=== PATIENT | male | born 1975 | race Caucasian/White ===

== ENCOUNTER 2020-02-29 09:23 | Emergency (ER) | payer OTHER, SELFPAY ==
[2020-02-29 09:33] VITALS: BP 131/63; PULSE 106; RESP 16; TEMP 36.6; O2SAT 98; BMI 33.6
[2020-02-29 10:03] LABS: Strep Scrn Group A (Rapid) Negative (Negative)
--- NOTE | 2020-02-29 10:55 | HMH.EDGENADL ---
ED Disposition Clinical Impression: Fever of unknown origin, Viral infection Disposition: Home, Self-Care Condition on Discharge: Good Instructions: DI for Fever (Symptom) -- Child Older Than Three Years Additional Instructions: Please stay self isolated until your cover test comes back tomorrow or Wednesday. 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 Prescriptions: Cholecalciferol (Vitamin D3) [Dialyvite Vitamin D3 Max] 50,000 unit PO WEEKLY 30 Days #4 tab Prescription Printed methylPREDNISolone [Medrol 4mg tab] 4 mg PO DIRECTED #21 tab Prescription Printed Referrals: Gigi Bradshaw MD [Primary Care Provider] - - Critical Care Critical Care Time: No Attestation: On 02/29/20, the high probability of a clinically significant, sudden or life threatening deterioration of the following system(s) required my full and direct attention, intervention and personal management. The time I documented below is in addition to time spent performing reported procedures but includes the following listed in this critical care notation. Medical Decision Making - Medical Records Medical records reviewed: Yes: I reviewed the patient's medical records. - Ronny Inquiry Pt receiving controlled substance: No Vital Signs: 02/29/20 09:33 Temperature 98 F Temperature Source Oral Pulse Rate [Left Radial] 106 H Respiratory Rate 16 Blood Pressure [Right Arm] 131/63 Blood Pressure Mean [Right Arm] 85 Blood Pressure Position [Right Arm] Sitting 02 Sat by Pulse Oximetry 98 Oxygen Delivery Method Room Air - Lab Data Lab results reviewed: Yes: I reviewed the patient's lab results. Lab Results 02/29/20 09:40: Influenza Type A Ag Negative, Influenza Type B Ag Negative 02/29/20 09:40: Group A Strep Rapid Negative Orders (Tests/Meds): ORDERS Category Date Time Status Covid-19 Nasal PCR Sendout [facility] Stat Lab 02/29/20 10:00 Received Strep Screen Confirmation Stat Micro 02/29/20 09:40 Received General Adult HPI - General Chief complaint: Fever Stated complaint: hurting all over Time Seen by Provider: 02/29/20 10:55 Mode of Arrival: Ambulatory Source of Information: Patient Limitations: No Limitations Description of Symptoms (Recalled from ER Triage Doc. by RN): to ed per pvt car with c/o generalized weakness, sorethroat, fever, cough starting yesterday. pt denies any sick contacts. cpta tylenol - History of Present Illness HPI narrative: 45-year-old gentleman presents the ED with generalized body aches arthralgias and myalgias, sore throat and headache and subjective fever shakes and chills. He states his symptoms started yesterday and is progressively gotten worse until he presented here to the emergency department today. Otherwise patient denies any nausea vomiting or diarrhea. Patient denies any cough or shortness of breath. Patient also denies any loss of taste or smell. - Related Data Previous Rx's Medication Instructions Recorded Cholecalciferol (Vitamin D3) 50,000 unit PO WEEKLY 30 Days #4 02/29/20 [Dialyvite Vitamin D3 Max] tab methylPREDNISolone [Medrol 4mg 4 mg PO DIRECTED #21 tab 02/29/20 tab] Allergies Allergy/AdvReac Type Severity Reaction Status Date / Time NO KNOWN ALLERGIES Allergy Uncoded 06/08/17 14:29 [facility] History - Hepatitis A Screen Drug use history?: No High risk sexual behaviors?: No History of sexually transmitted infection?: No Currently employed?: No Childcare worker?: No Do you have indoor plumbing?: Yes Do you have electricity?: Yes Attestation statement:: This patient has been screened for Hepatitis A risk factors. I have reviewed the patient's past medical history: Yes Medical History: Denies:: Diabetes Mellitus Type 1 - Social History Alcohol Intake: never Occupational Status: other Housing: other Household Members: other ROS Obtained: Yes All systems reviewed & no additional complaints - Constitutional C
[2020-02-29 10:58] VITALS: BP 125/86; PULSE 86; TEMP 37.7; O2SAT 96
[2020-02-29 11:06] VITALS: BP 123/83; PULSE 87; RESP 20; TEMP 37.7; O2SAT 98
[2020-03-01 13:05] LABS: Covid-19 Nasal PCR Sendout Lex Positive
--- NOTE | 2020-03-01 13:54 | PC.NURSE ---
attempted to call pt regarding +covid test. not a working number
--- NOTE | 2020-03-01 14:52 | PC.NURSE ---
's office called and informed of +covid
== END 2020-02-29 11:07 | disposition home or self-care (01) ==
PROVIDERS: Emergency Provider Family Medicine; PCP Family Medicine
DX: Z03.818 Encounter for observation for suspected exposure to other biological agents ruled out (principal); B34.9 Viral infection, unspecified
CPT/HCPCS: 87275; 87276; 87430; 99283; U0004

== ENCOUNTER → 2021-06-24 14:45 | Outpatient (CLI) | payer OTHER, SELFPAY | PROVIDERS: PCP Psychiatry & Neurology Sleep Medicine; Visit Provider Nurse Practitioner | DX: Z20.822 Contact with and (suspected) exposure to COVID-19 (principal) | CPT/HCPCS: C9803; U0003; U0005 ==

== ENCOUNTER 2021-12-28 16:15 | Emergency (ER) | payer OTHER, SELFPAY ==
--- NOTE | 2021-12-28 16:21 | XR_ITS ---
PROCEDURE INFORMATION: Exam: XR Right Foot Exam date and time: 12/28/21 04:15 PM Age: 46 years old Clinical indication: Injury or trauma; Other: Dropped a large, heavy toy on right 3rd/4th toes. Blunt trauma; Right lesser toe(s); Additional info: Dropped an object on foot TECHNIQUE: Imaging protocol: Radiologic exam of the Right foot. Views: 3 or more views. COMPARISON: No relevant prior studies available. FINDINGS: Bones/joints: Normal. Soft tissues: Normal. IMPRESSION: No acute findings.
[2021-12-28 16:45] VITALS: BP 147/87; PULSE 70; RESP 18; TEMP 36.7; O2SAT 98; BMI 31.6
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
[2021-12-28 17:14] VITALS: BP 147/87; PULSE 70; RESP 18; TEMP 36.7; O2SAT 98
== END 2021-12-28 17:17 | disposition home or self-care (01) ==
PROVIDERS: Emergency Provider Nurse Practitioner Family; PCP Family Medicine
DX: S90.121A Contusion of right lesser toe(s) without damage to nail, initial encounter (principal); W20.8XXA Other cause of strike by thrown, projected or falling object, initial encounter
CPT/HCPCS: 73630; 99212; G0463

== ENCOUNTER 2024-09-22 13:47 | Observation (INO) | payer OTHER, SELFPAY ==
[2024-09-22] VITALS (8 sets, daily range): BP systolic 130–181; BP diastolic 69–144; PULSE 83–111; RESP 18; TEMP 36.6–36.9; O2SAT 97–98; BMI 34.5; BMI 31.4
--- NOTE | 2024-09-22 13:53 | ED_ITS ---
Discharge Plan Disposition Patient Disposition: Admitted Condition: Good Clinical Impressions Clinical Impression: Multiple pulmonary emboli Discharge ED Provider: Barbara Padilla HPI <JON Mccarty - Last Filed: 09/22/24 16:48> General Chief Complaint: Chest Pain Stated Complaint: CP Time Seen by Provider: 09/22/24 13:53 History of Present Illness HPI narrative: Patient presents for evaluation of right-sided chest pain. Patient states that he began having sharp right sided chest pain intermittently since last night. Patient states it does not radiate and is worse with deep breath or coughs. He denies any shortness of breath fever chills hemoptysis hematochezia melena nausea vomiting diarrhea. He has no previous cardiopulmonary history and is on no home medications. Patient underwent multilevel lumbar back surgery 2 weeks ago in [facility]. He has not been taking any anticoagulants or aspirin. He reports that he is been up and moving and has had a thus far uneventful postoperative course. He denies any lower extremity pain or swelling. Related Data Home Medications ?Medication ?Instructions ?Recorded ?Confirmed oxycodone-acetaminophen 5 mg-325 1 tab PO Q6 PRN Pain, Moderate 09/22/24 09/22/24 mg tablet Allergies Allergy/AdvReac Type Severity Reaction Status Date / Time No Known Allergies Allergy Verified 12/28/21 17:03 PFSH <JON Mccarty - Last Filed: 09/22/24 16:48> [facility] Disclaimer: The information contained in this section may have been updated after the patient was seen, as this information can be updated by other users. Medical History (Updated 09/22/24 @ 17:46 by Xiomara Emery RN) Scoliosis Surgical History (Updated 09/22/24 @ 17:46 by Xiomara Emery RN) History of lumbar surgery History of appendectomy Family History (Updated 09/22/24 @ 17:46 by Xiomara Emery RN) Other No significant family history Social History (Updated 09/22/24 @ 17:46 by Xiomara Emery, RACHAEL) Smoking Status: Never smoker alcohol intake: never current occupational status: other Travel in the last 8 weeks: None household members: other housing: other Have you lived/traveled outside [place] in past 30 days?: No Contact w/someone who lives/traveled outside US past 30 days?: No Exposure to someone with infectious disease in past 14 days?: No Do you have a fever (greater than 100.4 F or 38 C)?: No Have you tested positive for COVID-19: No Exposed to someone with COVID-19 in past 14 days?: No Do you have a sore throat?: No Do you have a cough?: No Do you have any weakness?: No Do you have any diarrhea?: No Are you experiencing any unusual bleeding?: No Do you have any muscle aches/pain?: No Do you have any abdominal pain?: No Are you experiencing loss of taste or smell?: No Other Medical History Have you received the Flu Vaccine for this season: No Have you received the Pneumonia Vaccine: No <JON Mccarty Last Filed: 09/22/24 16:48> ROS Obtained: Yes Systems reviewed as appropriate & no additional complaints except as documented Physical Exam <JON Mccarty Last Filed: 09/22/24 16:48> General General appearance: alert and in no apparent distress Respiratory Respiratory exam: Present normal lung sounds bilaterally Cardiovascular Cardiovascular exam: Present regular rate Neurological Exam Neurological exam: Present alert and oriented X3 HEART Score <JON Mccarty Last Filed: 09/22/24 16:48> HEART Score HEART Score assessment performed?: Yes History (anamnesis): Slightly suspicious ECG: Non-specific disturbance Age: 45-65 years Risk factors: 1-2 risk factors Troponin: </= normal limit HEART Score: 3 <Barbara Padilla DO - Last Filed: 09/22/24 17:56> HEART Score HEART Score: 3 Critical Care <JON Mccarty Last Filed: 09/22/24 16:48> Critical Care Time Critical Care Time: Yes Attestation: On 09/22/24, the high probability of a clinically significant, sudden or life threatening deterioration of the following system(s) required my full and direct attention, intervention and personal management. The time I documented below is in addition to time spent performing reported procedures but includes the following listed in this critical care notation. Total Time Total Critical Care Time: 35 Medical Decision Making <JON Mccarty Last Filed: 09/22/24 16:48> Medical Records Medical records reviewed: Yes I reviewed the patient's medical records. Ronny Inquiry Pt receiving controlled substance: No Vital Signs Vital Signs: 09/22/24 13:48 09/22/24 14:46 09/22/24 15:31 Temperature 98.4 F Temperature Source Oral Pulse Rate 107 H 107 H Pulse Rate [Radial] 111 H Respiratory Rate 18 Blood Pressure 157/69 H 176/125 H Blood Pressure [Right Arm] 152/101 H Blood Pressure Mean [Right Arm] 118 Blood Pressure Source Blood Pressure Source [Right Arm] Automatic Cuff Blood Pressure Position Blood Pressure Position [Right Arm] Sitting 02 Sat by Pulse Oximetry 98 98 97 Oxygen Delivery Method Room Air Room Air Room Air 09/22/24 15:42 09/22/24 17:01 09/22/24 17:03 Temperature 98.4 F Temperature Source Oral Pulse Rate 108 H 100 H 98 H Pulse Rate [Radial] Respiratory Rate 18 Blood Pressure 181/144 H 131/82 131/82 Blood Pressure [Right Arm] Blood Pressure Mean [Right Arm] Blood Pressure Source Automatic Cuff Blood Pressure Source [Right Arm] Blood Pressure Position Sitting Blood Pressure Position [Right Arm] 02 Sat by Pulse Oximetry 97 97 Oxygen Delivery Method Room Air Room Air Room Air Lab Data Lab results reviewed: Yes I reviewed the patient's lab results. Labs: Lab Results 09/22/24 13:57: WBC 9.0, RBC 3.72 L, Hgb 10.2 L, Hct 31.7 L, MCV 85.2, MCH 27.4, MCHC 32.2, RDW 12.9, Plt Count 410, MPV 9.9, Neut % (Auto) 70.6, Lymph % (Auto) 19.8, [place] % (Auto) 8.1, Eos % (Auto) 1.0, Baso % (Auto) 0.3, Neut # (Auto) 6.4, Lymph # (Auto) 1.8, [place] # (Auto) 0.7, Eos # (Auto) 0.1, Baso # (Auto) 0.0, PT 12.4, INR 1.12 H, Sodium 137, Potassium 3.6, Chloride 99, Carbon Dioxide 30, Anion Gap 11.6, BUN 11, Creatinine 1.00, Estimated Creat Clear 146, Estimated GFR 79, Est GFR ( Amer) 96, Glucose 130 H, Calcium 8.9, Total Bilirubin 1.0, AST 24, ALT 29, Alkaline Phosphatase 109, Troponin I < 0.01, NT-Pro-B Natriuret Pep < 20.0, Total Protein 7.3, Albumin 3.7, Globulin 3.6 H, A lbumin/Globulin Ratio 1.0 L, HCV Ab OSKAR w/Rflx PCR Qn Negative, HIV Ag/Ab Combo Qual Negative 09/22/24 14:31: SARS-CoV-2 (PCR) Not detected, Influenza A Untype (PCR) Not detected, Influenza Type B (PCR) Not detected 09/22/24 13:57 09/22/24 13:57 Response Orders (Tests/Meds): ED MEDICATIONS Generic Name Dose Route Start Last Admin Trade Name Freq PRN Reason Stop Dose Admin Acetaminophen 650 mg 09/22/24 17:25 Acetaminophen 325mg Tab PO 10/22/24 16:40 Q6HP PRN Fever or Mild Pain (1-3) Apixaban 5 mg 09/22/24 17:25 09/22/24 17:54 Apixaban 5mg Tablet PO 09/22/24 17:26 5 mg ONCE ONE Administration Enoxaparin Sodium 115 mg 09/22/24 16:40 09/22/24 17:00 Enoxaparin 100mg/Ml Syringe 1 mg/kg (115 mg) 09/22/24 16:41 115 mg SUBCUT Administration ONCE ONE Discontinued Medications Generic Name Dose Route Start Last Admin Trade Name Freq PRN Reason Stop Dose Admin Acetaminophen 1,000 mg 09/22/24 14:06 09/22/24 14:27 Acetaminophen 500mg Tab PO 09/22/24 14:07 1,000 mg ONCE ONE Administration Acetaminophen 650 mg 09/22/24 16:41 Acetaminophen 325mg Tab PO 10/22/24 16:40 Q6HP PRN Fever or Mild Pain (1-3) Apixaban 5 mg 09/22/24 16:40 Apixaban 5mg Tablet PO 09/22/24 16:41 ONCE ONE Iopamidol 70 ml 09/22/24 14:51 09/22/24 14:53 Iopamidol-370 (76%);100ml Bottle IV 09/22/24 14:52 70 ml ONCE ONE Administration Sodium Chloride 10 ml 09/22/24 14:51 09/22/24 14:53 Sodium Chloride 0.9% 10ml Syr (Rad Only) IV 09/22/24 14:52 10 ml ONCE ONE Administration Sodium Chloride 50 ml 09/22/24 14:51 09/22/24 14:52 0.9 % Sodium Chloride 50 Ml Vial IV 09/22/24 14:52 50 ml ONCE ONE Administration ORDERS Category Date Time Status CT angio chest PE protocol Stat Cat Scan 09/22/24 14:06 Completed BNP [NT Pro Brain Natriuretic Pep.] Stat Lab 09/22/24 13:57 Completed CBC w/Auto Diff [Complete Blood Count Auto Diff] Stat Lab 09/22/24 13:57 Completed CMP [Comprehensive Metabolic Panel] Stat Lab 09/22/24 13:57 Completed HIV Combo Stat Lab 09/22/24 13:57 Completed Hepatitis C Ab Qual. W/ RFX Stat Lab 09/22/24 13:57 Completed INR [Prothrombin Time INR] Stat Lab 09/22/24 13:57 Completed Rapid PCR Covid and Flu A/B Stat Lab 09/22/24 14:31 Completed Trop I [Troponin I] Stat Lab 09/22/24 13:57 Completed Troponin I Q3H Lab 09/22/24 17:32 Received Troponin I Q3H Lab 09/22/24 20:15 Ordered MDM Narrative Medical Decision Narrative: In summary patient is a 49-year-old male who presents to the emergency department for evaluation of right-sided chest pain. Patient is [hemodynamically stable/unstable] upon arrival, [febrile/afebrile]. Physical exam is remarkable for nonreducible chest pain on palpation, clear breath sounds with no increased work of breathing or adventitious sounds, no abdominal tenderness no rebound no guarding no rigidity normal bowel sounds, bilateral lower extremity exam shows that he has calves are soft nontender with no dependent edema noted.. Differential diagnosis includes ACS versus PE versus postoperative pneumonia versus chest wall pain versus pleurisy etc. Initial workup will be conducted with hematologic labs CT scan PE protocol. Initial interventions include Tylenol for now. Initial workup reviewed by me and his hematologic labs are significant for a normal white count with no neutrophilic shift and INR of 1.12 and negative troponin and BNP and negative fluid studies. My informal trepidation of his CT scan PE protocol reveals some consolidation and haziness bilaterally along with multiple subsegmental pulmonary emboli with no evidence of right heart strain on imaging prior to radiology read. Please see their final read for formal interpretation. Upon repeat evaluation patient remains without oxygen but is still hypertensive but heart rate is now 70. Given this had interactive discussion with Dr. Adams who is on-call for Dr. Bradshaw about patient MARCANO presentation inpatient management and he will be admitted for further evaluation and care with 1 mg/kg dose of Lovenox now along with one 5 mg Eliquis now with Dr. Bradshaw to decide ongoing management tomorrow. <Barbara Padilla, DO - Last Filed: 09/22/24 17:56> Vital Signs Vital Signs: 09/22/24 13:48 09/22/24 14:46 09/22/24 15:31 Temperature 98.4 F Temperature Source Oral Pulse Rate 107 H 107 H Pulse Rate [Radial] 111 H Respiratory Rate 18 Blood Pressure 157/69 H 176/125 H Blood Pressure [Right Arm] 152/101 H Blood Pressure Mean [Right Arm] 118 Blood Pressure Source Blood Pressure Source [Right Arm] Automatic Cuff Blood Pressure Position Blood Pressure Position [Right Arm] Sitting 02 Sat by Pulse Oximetry 98 98 97 Oxygen Delivery Method Room Air Room Air Room Air 09/22/24 15:42 09/22/24 17:01 09/22/24 17:03 Temperature 98.4 F Temperature Source Oral Pulse Rate 108 H 100 H 98 H Pulse Rate [Radial] Respiratory Rate 18 Blood Pressure 181/144 H 131/82 131/82 Blood Pressure [Right Arm] Blood Pressure Mean [Right Arm] Blood Pressure Source Automatic Cuff Blood Pressure Source [Right Arm] Blood Pressure Position Sitting Blood Pressure Position [Right Arm] 02 Sat by Pulse Oximetry 97 97 Oxygen Delivery Method Room Air Room Air Room Air Lab Data Labs: Lab Results 09/22/24 13:57: WBC 9.0, RBC 3.72 L, Hgb 10.2 L, Hct 31.7 L, MCV 85.2, MCH 27.4, MCHC 32.2, RDW 12.9, Plt Count 410, MPV 9.9, Neut % (Auto) 70.6, Lymph % (Auto) 19.8, [place] % (Auto) 8.1, Eos % (Auto) 1.0, Baso % (Auto) 0.3, Neut # (Auto) 6.4, Lymph # (Auto) 1.8, [place] # (Auto) 0.7, Eos # (Auto) 0.1, Baso # (Auto) 0.0, PT 12.4, INR 1.12 H, Sodium 137, Potassium 3.6, Chloride 99, Carbon Dioxide 30, Anion Gap 11.6, BUN 11, Creatinine 1.00, Estimated Creat Clear 146, Estimated GFR 79, Est GFR ( Amer) 96, Glucose 130 H, Calcium 8.9, Total Bilirubin 1.0, AST 24, ALT 29, Alkaline Phosphatase 109, Troponin I < 0.01, NT-Pro-B Natriuret Pep < 20.0, Total Protein 7.3, Albumin 3.7, Globulin 3.6 H, A lbumin/Globulin Ratio 1.0 L, HCV Ab OSKAR w/Rflx PCR Qn Negative, HIV Ag/Ab Combo Qual Negative 09/22/24 14:31: SARS-CoV-2 (PCR) Not detected, Influenza A Untype (PCR) Not detected, Influenza Type B (PCR) Not detected Response Orders (Tests/Meds): ED MEDICATIONS Generic Name Dose Route Start Last Admin Trade Name Freq PRN Reason Stop Dose Admin Acetaminophen 650 mg 09/22/24 17:25 Acetaminophen 325mg Tab PO 10/22/24 16:40 Q6HP PRN Fever or Mild Pain (1-3) Apixaban 5 mg 09/22/24 17:25 09/22/24 17:54 Apixaban 5mg Tablet PO 09/22/24 17:26 5 mg ONCE ONE Administration Enoxaparin Sodium 115 mg 09/22/24 16:40 09/22/24 17:00 Enoxaparin 100mg/Ml Syringe 1 mg/kg (115 mg) 09/22/24 16:41 115 mg SUBCUT Administration ONCE ONE Discontinued Medications Generic Name Dose Route Start Last Admin Trade Name Freq PRN Reason Stop Dose Admin Acetaminophen 1,000 mg 09/22/24 14:06 09/22/24 14:27 Acetaminophen 500mg Tab PO 09/22/24 14:07 1,000 mg ONCE ONE Administration Acetaminophen 650 mg 09/22/24 16:41 Acetaminophen 325mg Tab PO 10/22/24 16:40 Q6HP PRN Fever or Mild Pain (1-3) Apixaban 5 mg 09/22/24 16:40 Apixaban 5mg Tablet PO 09/22/24 16:41 ONCE ONE Iopamidol 70 ml 09/22/24 14:51 04/04/25 14:53 Iopamidol-370 (76%);100ml Bottle IV 09/22/24 14:52 70 ml ONCE ONE Administration Sodium Chloride 10 ml 09/22/24 14:51 09/22/24 14:53 Sodium Chloride 0.9% 10ml Syr (Rad Only) IV 09/22/24 14:52 10 ml ONCE ONE Administration Sodium Chloride 50 ml 09/22/24 14:51 09/22/24 14:52 0.9 % Sodium Chloride 50 Ml Vial IV 09/22/24 14:52 50 ml ONCE ONE Administration ORDERS Category Date Time Status CT angio chest PE protocol Stat Cat Scan 09/22/24 14:06 Completed BNP [NT Pro Brain Natriuretic Pep.] Stat Lab 09/22/24 13:57 Completed CBC w/Auto Diff [Complete Blood Count Auto Diff] Stat Lab 09/22/24 13:57 Completed CMP [Comprehensive Metabolic Panel] Stat Lab 09/22/24 13:57 Completed HIV Combo Stat Lab 09/22/24 13:57 Completed Hepatitis C Ab Qual. W/ RFX Stat Lab 09/22/24 13:57 Completed INR [Prothrombin Time INR] Stat Lab 09/22/24 13:57 Completed Rapid PCR Covid and Flu A/B Stat Lab 09/22/24 14:31 Completed Trop I [Troponin I] Stat Lab 09/22/24 13:57 Completed Troponin I Q3H Lab 09/22/24 17:32 Received Troponin I Q3H Lab 09/22/24 20:15 Ordered ECG Data Tracing #1: Attestation: I reviewed this ECG and interpreted as documented below: ECG Narrative: Sinus tachycardia with a ventricular rate of [address] changes concerning for STEMI. Normal intervals ECG initial impression date: 09/22/24 ECG initial impression time: 13:56 MDM Narrative Medical Decision Narrative: In summary patient is a 49-year-old male who presents to the emergency department for evaluation of right-sided chest pain. Patient is [hemodynamically stable/unstable] upon arrival, [febrile/afebrile]. Physical exam is remarkable for nonreducible chest pain on palpation, clear breath sounds with no increased work of breathing or adventitious sounds, no abdominal tenderness no rebound no guarding no rigidity normal bowel sounds, bilateral lower extremity exam shows that he has calves are soft nontender with no dependent edema noted.. Differential diagnosis includes ACS versus PE versus postoperative pneumonia versus chest wall pain versus pleurisy etc. Initial workup will be conducted with hematologic labs CT scan PE protocol. Initial interventions include Tylenol for now. Initial workup reviewed by me and his hematologic labs are significant for a normal white count with no neutrophilic shift and INR of 1.12 and negative troponin and BNP and negative fluid studies. My informal trepidation of his CT scan PE protocol reveals some consolidation and haziness bilaterally along with multiple subsegmental pulmonary emboli with no evidence of right heart strain on imaging prior to radiology read. Please see their final read for formal interpretation. Upon repeat evaluation patient remains without oxygen but is still hypertensive but heart rate is now 70. Given this had interactive discussion with Dr. Adams who is on-call for Dr. Bradshaw about patient MARCANO presentation inpatient management and he will be admitted for further evaluation and care with 1 mg/kg dose of Lovenox now along with one 5 mg Eliquis now with Dr. Bradshaw to decide ongoing management tomorrow. DO Randy: I was consulted by the KATIE, and we discussed the complexity of the problems being addressed. I approved the treatment and management plan for this patient's care in the emergency department, thus performing a substantive portion of the medical decision making. Babrara Padilla DO
--- NOTE | 2024-09-22 13:55 | ECG_ITS ---
APPROVED REPORT Exam: Resting ECG HR:101 bpm ECG Measurements Heart Rate 101 AXES VA 152 P 66 QRSd 124 QRS -3 QT 332 T 13 QTc 390 Conclusion SINUS TACHYCARDIA MINIMAL VOLTAGE CRITERIA FOR LVH, CONSIDER NORMAL VARIANT [MEETS CRITERIA IN ONE OF: R(aVL), S(V1), R(V5), R(V5/V6)+S(V1)] LATERAL MYOCARDIAL INFARCTION , OF INDETERMINATE AGE [40+ ms Q WAVE AND/OR ST/T ABNORMALITY IN I/aVL/V5/V6] No STEMI Electronically signed by : COLE LATHAM, 09/23/2024 03:35:17
--- NOTE | 2024-09-22 14:06 | CT_ITS ---
FINAL REPORT TECHNIQUE: Thin section axial CT with contrast with multiplanar reconstruction This study was performed with techniques to keep radiation doses as low as reasonably achievable, (ALARA). Individualized dose reduction techniques using automated exposure control or adjustment of mA and/or kV according to the patient''s size were employed. CLINICAL HISTORY: Right-sided cp, 2 weeks postop back surgery FINDINGS: There are filling defects within the right segmental and subsegmental branches consistent with pulmonary emboli. Pulmonary emboli to the left lower lobe are also noted to the branches, although to a lesser extent. There is no evidence of right heart strain or central PE. Thoracic aorta shows no dissection or aneurysm. There is patchy atelectasis in the right lower lobe attributed to pulmonary emboli. The left lung is clear. There is a trace right pleural effusion. There is no significant pericardial effusion. No mediastinal or hilar adenopathy is present. Limited images of the upper abdomen demonstrate an enhancing mass in the liver dome measuring up to 13 mm. IMPRESSION: Moderate bilateral lower lobe pulmonary emboli, greatest on the right, without evidence of right heart strain. Trace right pleural effusion with right lower lobe atelectasis probably related to embolic disease. Enhancing mass in the liver dome measuring up to 13 mm. Nonemergent follow-up MRI is recommended. Reviewed, Interpreted and Dictated by Gigi Jay MD Transcribed by Evelia Camarillo Authenticated and [facility]
[2024-09-22 14:12] LABS: Basophils % 0.3 % (0.1-2.0); Eosinophils # 0.1 K/mm3 (0.0-0.4); Hematocrit 31.7 % (42.0-52.0); Hemoglobin 10.2 g/dL (14.1-18.0); Lymphocytes # 1.8 K/mm3 (0.7-4.5); Lymphocytes % 19.8 % (10-50); Mean Corpuscular HGB Conc 32.2 g/dL (31.8-35.4); Mean Corpuscular Hemoglobin 27.4 pg (27.0-31.2); Mean Corpuscular Volume 85.2 fl (80-94); Mean Platelet Volume 9.9 fl (7.4-10.4); Monocytes # 0.7 K/mm3 (0.1-1.0); Monocytes % 8.1 % (1.7-9.3); Neutrophils # 6.4 K/mm3 (1.8-7.8); Neutrophils % 70.6 % (37.0-80.0); Platelet Count 410 K/mm3 (142-424); Red Blood Count 3.72 M/mm3 (4.60-6.20); Red Cell Distribution Width 12.9 % (11.5-17.5)
[2024-09-22 14:19] LABS: INR 1.12 (0.9-1.1); Prothrombin Time 12.4 seconds (10.1-12.5)
[2024-09-22 14:20] LABS: Alanine Aminotransferase 29 U/L (12-78); Albumin Level 3.7 g/dl (3.5-5.0); Alkaline Phosphatase 109 U/L (38-126); Anion Gap 11.6 mEq/L (5-15); Aspartate Amino Transferase 24 U/L (17-59); Blood Urea Nitrogen 11 mg/dl (9-20); Calcium 8.9 mg/dl (8.4-10.2); Carbon Dioxide 30 mmol/L (22.0-30.0); Chloride 99 mmol/L (98-107); Creatinine Clearance Estimated 146 mL/min (50-200); Estimated Glomerular Filt Rate 79 ml/min (>60); GFR (African American) 96 ML/MIN (>60); Globulin 3.6 g/dL (1.3-3.2); Glucose 130 mg/dl (74-100); Potassium 3.6 mmoL/L (3.5-5.1); Sodium 137 mmol/L (136-145); Total Protein,Serum 7.3 g/dl (6.3-8.2)
[2024-09-22] MEDS: ACETAMINOPHEN 500MG TAB 1000 MG PO (14:27)
[2024-09-22 14:31] LABS: NT Pro Brain Natriuretic Pep. < 20.0 pg/mL (0-125)
[2024-09-22 14:36] LABS: Coronavirus 19, PCR Not Detected (NotDetected); Influenza A, PCR Not Detected (NotDetected); Influenza B, PCR Not Detected (NotDetected)
[2024-09-22 14:38] LABS: Troponin I < 0.01 ng/ml (0.00-0.034)
[2024-09-22] MEDS: 0.9 % SODIUM CHLORIDE 50 ML VIAL IV (14:52)
[2024-09-22] MEDS: IOPAMIDOL-370 (76%);100ML BOTTLE 70 ML IV (14:53)
[2024-09-22] MEDS: SODIUM CHLORIDE 0.9% 10ML SYR (RAD ONLY) 10 ML IV (14:53)
[2024-09-22 15:46] LABS: HIV Combo NEGATIVE (Negative)
[2024-09-22 15:53] LABS: Hepatitis C Ab Qual. W/ RFX NEGATIVE (Negative)
--- NOTE | 2024-09-22 16:07 | PC.NURSE ---
DR HERNAN WHEAT FOR DR PRADO
--- NOTE | 2024-09-22 16:37 | PC.NURSE ---
BEV SPEAKING WITH DR BECERRA WHO IS TAKING CALL FOR DR PRADO
--- NOTE | 2024-09-22 16:41 | PC.NURSE ---
notified HS of need for an admission bed
--- NOTE | 2024-09-22 16:55 | PC.NURSE ---
REPORT GIVEN TO RACHAEL OVIEDO
[2024-09-22] MEDS: ENOXAPARIN 100MG/ML SYRINGE 115 MG SUBCUT (17:00)
--- NOTE | 2024-09-22 17:16 | PC.NURSE ---
arrived by w/c from ED
[2024-09-22] MEDS: APIXABAN 5MG TABLET 5 MG PO (17:54)
[2024-09-22 18:24] LABS: Troponin I < 0.01 ng/ml (0.00-0.034)
[2024-09-22 21:08] LABS: Troponin I < 0.01 ng/ml (0.00-0.034)
[2024-09-23 04:00] VITALS: BP 135/72; PULSE 97; RESP 16; TEMP 36.8; O2SAT 93; BMI 32.4
--- NOTE | 2024-09-23 05:03 | PC.NURSE ---
Pt is alert and oriented and has no c/o pain. Pt denies needs and has had no acute changes to note this shift.
[2024-09-23] MEDS: ACETAMINOPHEN 325MG TAB 650 MG PO (05:27)
[2024-09-23 08:00] VITALS: BP 153/74; PULSE 102; RESP 18; TEMP 36.9; O2SAT 95
[2024-09-23] MEDS: APIXABAN 5MG TABLET 10 MG PO (08:33)
[2024-09-23] MEDS: FERROUS SULFATE 325MG TABLET 325 MG PO (08:33)
--- NOTE | 2024-09-23 10:07 | P.HPDS_ITS ---
General Admission date:: 09/22/24 Discharge date: 09/23/24 *Admission Date: 09/22/24 *Chief complaint: Chest pain *History of present illness: This 49-year-old white male presented to the emergency room with right-sided chest pain. He had surgery for spinal fusion on 318 in [facility] by Dr. Phan. He was seen in follow-up by Dr. Phan September 21. He has had right sided chest pain develop over the past 2 days. He has not been short of breath but has stated that it feels difficult to get a full breath. He has not had fever. He has not been coughing blood. He has not had leg pain. He has no history of blood clots. He has a history of renal stones. He presented to the emergency room and CTA revealed evidence of multiple blood clots on the right and a small pleural effusion. There was an area at the left lung base as well. He received Lovenox 1 mg/kg in the emergency room and 5 mg of apixaban p.o. He was admitted for further evaluation and care. In the past he has taken statin therapy for hyperlipidemia but has not been on medication recently. The CTA also revealed a single liver lesion which will warrant further evaluation. His lab work revealed decrease in hemoglobin and elevated blood sugar. He has no previous diagnosis of diabetes. [facility] Disclaimer: The information contained in this section may have been updated after the patient was seen, as this information can be updated by other users. Medical History (Updated 09/23/24 @ 10:27 by Gigi Bradshaw MD) Anemia Hyperglycemia Scoliosis Surgical History (Updated 09/23/24 @ 10:27 by Gigi Bradshaw MD) History of lumbar surgery History of appendectomy Family History (Updated 09/22/24 @ 17:46 by Xiomara Emery RN) No significant family history Social History (Updated 09/22/24 @ 17:46 by Xiomara Emery RN) Smoking Status: Never smoker alcohol intake: never current occupational status: other Travel in the last 8 weeks: None household members: other housing: other Have you lived/traveled outside US in past 30 days?: No Contact w/someone who lives/traveled outside US past 30 days?: No Exposure to someone with infectious disease in past 14 days?: No Do you have a fever (greater than 100.4 F or 38 C)?: No Have you tested positive for COVID-19: No Exposed to someone with COVID-19 in past 14 days?: No Do you have a sore throat?: No Do you have a cough?: No Do you have any weakness?: No Do you have any diarrhea?: No Are you experiencing any unusual bleeding?: No Do you have any muscle aches/pain?: No Do you have any abdominal pain?: No Are you experiencing loss of taste or smell?: No Other Medical History Have you received the Flu Vaccine for this season: No Have you received the Pneumonia Vaccine: No Review of Systems Review of Systems Review of systems:: pertinent systems reviewed and negative unless documented below Constitutional Constitutional: Denies anorexia, Denies body ache(s), Denies chills, Denies poor appetite, Denies weakness and Denies weight loss Eyes Eyes: Denies change in vision ENT Ears, Nose, Mouth, and Throat: Reports system reviewed and no additional complaints, except as documented, Denies dysphagia and Denies vertigo *Cardiovascular Cardiovascular: Reports chest pain, Reports chest pain at rest, Denies claudi cation, Reports dyspnea (Mild, cannot get a full breath.), Denies edema, Denies irregular heart rhythm, Denies leg edema and Denies palpitations *Respiratory Respiratory: Reports dyspnea (Mild, cannot get a full breath.), Denies hemoptysis, Reports pain on inspiration and Denies wheezing *Gastrointestinal Gastrointestinal: Denies abdominal pain, Denies change in bowel habits, Denies dysphagia, Denies heartburn, Denies hematemesis, Denies hematochezia, Denies loose stools, Denies melena and Denies nausea *Genitourinary Genitourinary: Denies difficulty urinating *Musculoskeletal Musculoskeletal: Reports back pain Integumentary/Breasts Skin/Breast: Reports system reviewed and no additional complaints, except as documented *Neurologic Neurologic: Reports as per HPI, Denies vertigo and Denies weakness Psychiatric Psychiatric: Reports system reviewed and no additional complaints, except as documented Endocrine Endocrine: Reports system reviewed and no additional complaints, except as documented and Denies palpitations Hematologic/Lymphatic Hematologic/Lymphatic: Reports system reviewed and no additional complaints, except as documented (No family history for blood clots), Denies easy bleeding, Denies easy bruising and Denies lymphadenopathy Allergic/Immunologic Allergic/Immunologic: Denies wheezing Exam Data for Last 24 hours Vital signs and Labs for Last 24 Hours: Temp Pulse Resp BP Pulse Ox O2 Del Method 98.4 F 102 H 18 153/74 H 95 Room Air 09/23/24 08:00 09/23/24 08:00 09/23/24 08:00 09/23/24 08:00 09/23/24 08:00 09/23/24 08:00 Laboratory Results - last 24 hr 09/22/24 13:57: WBC 9.0, RBC 3.72 L, Hgb 10.2 L, Hct 31.7 L, MCV 85.2, MCH 27.4, MCHC 32.2, RDW 12.9, Plt Count 410, MPV 9.9, Neut % (Auto) 70.6, Lymph % (Auto) 19.8, [place] % (Auto) 8.1, Eos % (Auto) 1.0, Baso % (Auto) 0.3, Neut # (Auto) 6.4, Lymph # (Auto) 1.8, [place] # (Auto) 0.7, Eos # (Auto) 0.1, Baso # (Auto) 0.0, PT 12.4, INR 1.12 H, Sodium 137, Potassium 3.6, Chloride 99, Carbon Dioxide 30, Anion Gap 11.6, BUN 11, Creatinine 1.00, Estimated Creat Clear 146, Estimated GFR 79, Est GFR ( Amer) 96, Glucose 130 H, Calcium 8.9, Total Bilirubin 1.0, AST 24, ALT 29, Alkaline Phosphatase 109, Troponin I < 0.01, NT-Pro-B Natriuret Pep < 20.0, Total Protein 7.3, Albumin 3.7, Globulin 3.6 H, Albumin/Globulin Ratio 1.0 L, HCV Ab OSKAR w/Rflx PCR Qn Negative, HIV Ag/Ab Combo Qual Negative 09/22/24 14:31: SARS-CoV-2 (PCR) Not detected, Influenza A Untype (PCR) Not detected, Influenza Type B (PCR) Not detected 09/22/24 17:32: Troponin I < 0.01 09/22/24 20:28: Troponin I < 0.01 I & O for Last 24 hours: Intake & Output 09/20/24 09/21/24 09/22/24 09/23/24 11:59 11:59 11:59 11:59 Intake Total 900 / 900 Output Total 0 / 0 Balance 900 / 900 Weight 239 lb 6.4 oz Constitutional Constitutional: no acute distress *Routine HEENT Exam Head: Present normocephalic Eye: Present EOMI and PERRL; Absent conjunctival icterus, scleral injection or periorbital swelling ENT: Present mucous membranes moist; Absent dentition normal (Upper denture) *Routine Neck Exam Neck: Present supple; Absent lymphadenopathy Routine Chest/Breast/Axilla Exam Chest wall: Absent tenderness Axillae: Absent lymphadenopathy *Routine Respiratory Exam Respiratory: Present diminished air movement (Breath sounds decreased on right. Transient rub?), able to speak in complete sentences and symmetric chest movement; Absent respiratory distress, rhonchi, stridor or wheezes *Routine Cardiovascular Exam Cardiovascular: Present RRR; Absent murmur *Routine Abdominal Exam Abdominal: Present soft; Absent tenderness or mass *Routine Rectal Exam Rectal:: deferred *Routine Genitalia Exam Genitalia:: deferred *Routine Extremities Exam Extremities: Present full ROM; Absent cyanosis, clubbing, edema or joint swelling Routine Back/Spine/Pelvis Exam Back/Spine: Present loss of lumbar lordosis (Surgical scar healing well.) *Routine Skin Exam Skin: Present intact; Absent cyanosis, erythema, mottling, petechiae, lesions or jaundice *Routine Neurological Exam Neurological: Present alert, oriented X3, moving all extremities and normal tone; Absent sensory deficit, motor deficit or altered mental status Routine Psychiatric Exam Psychiatric: Present normal affect and normal thought process Meds Home Medications and Allergies Home Medications ?Medication ?Instructions ?Recorded ?Confirmed ?Type apixaban 5 mg tablet (Eliquis) 10 mg (2 x 5 mg) PO BID #13 tabs 09/23/24 Rx apixaban 5 mg tablet (Eliquis) 10 mg (2 x 5 mg) PO BID #24 tabs 09/23/24 Rx ferrous sulfate 325 mg (65 mg 325 mg PO BID #90 tabs 09/23/24 Rx iron) tablet New Prescriptions to Start Prescriptions: apixaban [Eliquis] Gigi Bradshaw apixaban [Eliquis] Gigi Bradshaw ferrous sulfate Gigi Bradshaw Allergies Allergy/AdvReac Type Severity Reaction Status Date / Time No Known Allergies Allergy Verified 12/28/21 17:03 Hospital Course Hospital Course Hospital Course: The patient was seen in the emergency room and admitted with a diagnosis of pulmonary emboli. The CTA showed emboli particular on the right side and some on the left. The patient was symptomatic primarily for chest pain on the right. He describes some difficulty in getting a full breath. He received Lovenox 1 mg/kg in the emergency room and 5 mg of a apixaban p.o. He remained stable through the night and was able to get a few hours sleep. On the morning of September 23 he had no respiratory distress and was not uncomfortable. He had no leg edema and Ana Laura's sign was negative bilaterally. He had decreased breath sounds on the right. Venous duplex examination of the lower extremities was requested. This is usually not available on the weekends. Elevated blood sugar was noted and hemoglobin A1c was ordered and is pending. The isolated liver lesion will require further evaluation. There was felt that the patient can be discharged on a apixaban 10 mg twice daily for 1 week then decreasing to 5 mg twice daily. The patient will be seen in the office of [facility] this week. He was instructed to return to the emergency room for increasing chest pain or shortness of breath. Results Data Completed and Pending Labs on day of discharge: Labs from last 24 hours 09/22/24 09/22/24 09/22/24 20:28 17:32 14:31 WBC RBC Hgb Hct MCV MCH MCHC RDW Plt Count MPV Neut % (Auto) Lymph % (Auto) [place] % (Auto) Eos % (Auto) Baso % (Auto) Neut # (Auto) Lymph # (Auto) [place] # (Auto) Eos # (Auto) Baso # (Auto) PT INR Sodium Potassium Chloride Carbon Dioxide Anion Gap BUN Creatinine Estimated Creat Clear Estimated GFR Est GFR ( Amer) Glucose Calcium Total Bilirubin AST ALT Alkaline Phosphatase Troponin I < 0.01 < 0.01 NT-Pro-B Natriuret Pep Total Protein Albumin Globulin Albumin/Globulin Ratio SARS-CoV-2 (PCR) Not detected HCV Ab OSKAR w/Rflx PCR Qn HIV Ag/Ab Combo Qual Influenza A Untype (PCR) Not detected Influenza Type B (PCR) Not detected 09/22/24 13:57 WBC 9.0 RBC 3.72 L Hgb 10.2 L Hct 31.7 L MCV 85.2 MCH 27.4 MCHC 32.2 RDW 12.9 Plt Count 410 MPV 9.9 Neut % (Auto) 70.6 Lymph % (Auto) 19.8 [place] % (Auto) 8.1 Eos % (Auto) 1.0 Baso % (Auto) 0.3 Neut # (Auto) 6.4 Lymph # (Auto) 1.8 [place] # (Auto) 0.7 Eos # (Auto) 0.1 Baso # (Auto) 0.0 PT 12.4 INR 1.12 H Sodium 137 Potassium 3.6 Chloride 99 Carbon Dioxide 30 Anion Gap 11.6 BUN 11 Creatinine 1.00 Estimated Creat Clear 146 Estimated GFR 79 Est GFR ( Amer) 96 Glucose 130 H Calcium 8.9 Total Bilirubin 1.0 AST 24 ALT 29 Alkaline Phosphatase 109 Troponin I < 0.01 NT-Pro-B Natriuret Pep < 20.0 Total Protein 7.3 Albumin 3.7 Globulin 3.6 H Albumin/Globulin Ratio 1.0 L SARS-CoV-2 (PCR) HCV Ab OSKAR w/Rflx PCR Qn Negative HIV Ag/Ab Combo Qual Negative Influenza A Untype (PCR) Influenza Type B (PCR) DS: Diagnosis Discharge Diagnosis (1) Multiple pulmonary emboli: Status: Acute Code(s): I26.99 - Other pulmonary embolism without acute cor pulmonale (2) Lesion of liver: Status: Acute Code(s): K76.9 - Liver disease, unspecified (3) Anemia: Status: Acute Code(s): D64.9 - Anemia, unspecified (4) Hyperglycemia: Status: Acute Code(s): R73.9 - Hyperglycemia, unspecified (5) History of lumbar surgery: Status: Acute Code(s): Z98.890 - Other specified postprocedural states Discharge Plan Disposition Patient Disposition: Home, Self-Care Condition: Good Follow up Plan Follow up with: Gigi Bradshaw MD [Primary Care Provider] - 09/28/24 Prescriptions/Medication Reconciliation: New ferrous sulfate 325 mg (65 mg iron) Tablet 325 mg PO BID Qty: 90 2RF Eliquis 5 mg Tablet 10 mg PO BID Qty: 13 0RF Eliquis 5 mg tablet 10 mg PO BID Qty: 24 0RF Rx Instructions: 10mg BID for one week, then will decrease to 5mg BID Problem Reconciliation Problems Reviewed?: Yes Patient Discharge Instructions ACTIVITY: Limited activity DIET: advance to your usual diet Patient Instructions: Pulmonary Embolism, DI for Pulmonary Embolism Print Language: Indonesian Providers Primary Care Provider: Gigi Bradshaw Admit Provider: Nicholas Pitts Attending Provider: Gigi Bradshaw
[2024-09-23 10:18] LABS: Hemoglobin A1C 4.6 % (4.0-6.0)
--- NOTE | 2024-09-23 10:24 | HMH.PHAINT1 ---
Pharmacy Intervention Comments: MEDICATION RECONCILIATION COMPLETE USING EXTERNAL PHARMACY FILL HISTORY AND MACKENZIE REPORT. REMOVED OXYCODONE SINCE FILLED FOR 10 DAY SUPPLY ON 09/07/24, RX SHOULD HAVE BEEN COMPLETED.
--- NOTE | 2024-09-25 12:08 | SW/DCPLANNER ---
Spoke with patient on the phone. Patient stated that he is doing well. Patient stated that he is aware of his upcoming appointment with his primary care provider. Patient stated that mahin hasnt gotten his new medicine ready but plans on getting them today. Patient stated that he has no concerns or questions at this time. Og Bradley
--- OUTSIDE RECORDS SUMMARY | 2024-09-28 19:39 | XMS_ITS | Data Portability ---
Author Organization [facility] ADMIN Address [address] [place] [address] Assessment No assessment recorded. Plan of Treatment Reminders Order Date Submit Date Provider Last Modified By Organization Details Last Modified Time Details Appointments None recorded. Lab None recorded. Referral None recorded. Procedures nerve conduction study/EMG, lower extremity (PROC) 2023 024 [email or web address] Not available 10:49:30 Surgeries None recorded. Imaging None recorded. Medication Orders None recorded. Patient TargetsNo targets recorded. Patient InstructionsNo instructions recorded. Reason for Referral None Reported. Results Created Date Observation Date Name Description Value Unit Range Abnormal Flag Note LastModifiedBy Organization Detail LastModifiedTime 08/18/19 24 04/21/2023 MRI, lumba r spine , w/o contr ast No observ ation record ed. BARCODE Not Available 2023 11:05:42 08/18/19 24 06/10/2023 nerve condu ction study /EMG (PROC ) No observ ation record ed. BARCODE Not Available 2023 11:08:39 Result Notes None recorded. Problems Name Problem SNOMED Code Status Onset Date Resolution Date Notes Provider Name and Address Organization Details Recorded Time Muscle weakness 95633175 Active 2023 Maya antony, [facility] & [place] 4 08:11:52 Paresthesi a 72540038 Active 2023 Xiomara David DO [address], [place], [address] , [facility] & [place] 4 13:03:11 Pain in bilateral legs 3189692171692 9108 Active 2023 Xiomara David DO [address], [place], [address] , [facility] [place] [facility] & [place] 4 13:03:15 Bilateral foot drop 7591736850665 9103 Active 2023 Xiomara David DO [address], [place], [address] , [facility] MEENUNT [facility] [place] [facility] & [place] 4 13:04:07 Problem Notes None recorded. Procedures Surgical History Date Name Laterality Status Provider Name and Address Organization Details Recorded Time 4 EMG/ Nerve Conduction Study completed DO [address], [place], [address], [facility] [place] [facility] & [place] 10/28/2023 10:49:14 Back Surgery completed [facility]aruss [facility] & [place] 08/17/2023 11:01:14 Imaging Results Imaging Date Name Status LastModified by Organiz ation Details LastModified Time 04/21/2023 MRI, lumbar spine, w/o contrast completed BARCODE Information not available 08/18/2023 11:05:42 06/10/2023 nerve conduction study/EMG (PROC) completed BARCODE Information not available 08/18/2023 11:08:39 Procedure Notes None recorded. Medical Equipment None Reported. Allergies No known drug allergies Medications Not known to be on any medication Vitals Date Recorded Body height Body mass index (BMI) Body weight Heart rate Systolic blood pressure Diastolic blood pressure Provider Name and Address Organization Details Last Updated DateTime 4 182.88 cm 32.1 kg/m2 475496. 39 g 80 /min 106 mm[Hg] 78 mm[Hg] Maya DUARTE - [facility] [place] [facility] & [place] 4 10:58:57 Date Recorded Body height Body mass index (BMI) Body weight Heart rate Oxygen saturation Oxygen saturation in Arterial blood by Pulse oximetry Systolic blood pressure Diastolic blood pressure Provider Name and Address Organization Details Last Updated DateTime 4 182.88 cm 34 kg/m2 489621. 97 g 88 /min 98 % 98 % 126 mm[Hg] 78 mm[Hg] Maya Jeremy FELICIA - [facility] [place] [facility] & [place] 4 11:15:33 Date Recorded Body height Heart rate Systolic blood pressure Diastolic blood pressure Provider Name and Address Organization Details Last Updated DateTime 10/28/2023 182.88 cm 90 /min 136 mm[Hg] 88 mm[Hg] Maya DUARTE [facility] & [place] 10/28/2023 10:26:44 Social History Question Answer Notes LastModified by Organizat ion Details LastModified Time Tobacco Smoking Status Never Smoker Maya antony [facility]IA [facility] & [place] 08/17/2023 10:53:51 What Is Your Level Of Alcohol Consumption? None Information not available 08/17/2023 What Is Your Level Of Caffeine Consumption? None Information not available 08/17/2023 Are You Currently Employed? No Information not available 08/17/2023 What Is Your Relationship Status? Single Lives With Father Information not available 08/17/2023 Do You Use Any Illicit Or Recreational Drugs? No Information not available 08/17/2023 Are You Currently In School? No 11th Grade Information not available 08/17/2023 Sex: Unknown Functional Status None recorded. Mental Status None recorded. Family History Relationship Description Onset Age of this Age Resolved Age Notes LastModified by Organization Details LastModified Time Mother Malignant tumor of rectum 62 ldalla Not available 2023 11:02:30 Father No current problems or disability ldalla Not available 08/17 11:02:58 Medical History Condition Response Back Problems Y Neurological Problems Y Past Encounters Encounter ID Performer Location Encounter Start Date Encounter Closed Date Diagnosis/Indication Diagnosis SNOMED-CT Code Diagnosis ICD10 Code Diagnosis Note [id number] DO JESS Harris [facility] [address] [facility],[address] [place] [address] 08/17/2023 10:20:18 08/17/2023 11:38:15 Pain in bilateral legs 1025075061 7620874 M79.604 M79.605 Chronic progressiv e leg pain that has improved since recent lumber surgery to decompress impinged nerves. He is awaiting to start formal therapies. Paresthesia 88310137 R20 .2 Chronic distal paresthesi as which could be multifacto rial with multiple radiculopa rimma and suggestion of a distal peripheral neuropathy . He had an emg done at an outside location prior to surgery with samantha n in predominat jem L5/S1 distributi ons.Will give him time to recover from surgery then re-evaluat e his exam. Potentiall y repeat the NCV/EMG in a few months time. Bilateral foot drop 1563 927000 0620717 M21.371 M21.372 Chronic issue that has progressiv jem worsened. Will see how he does once he starts formal therapies. No current equipment needs. [id number] Xiomara DavidDO [facility] [address] [facility] [facility],[address] [place] [address] 09/28/2023 11:10:01 09/28/2023 11:36:30 Pain in bilateral legs 2125853194 5917534 M79.604 M79.605 Chronic progressiv e leg pain that has improved significan tly since recent lumber surgery to decompress impinged nerves. He is currently in formal therapies. Paresthesia 29255954 R20 .2 Chronic distal paresthesi as which have now resolved since his back surgery. His exam has improved with normalized reflexes and sensation in his BLE's. Bilateral foot drop 1563 888183 8714052 M21.371 M21.372 Chronic issue that has been static since his back surgery. He is currently in formal therapies. We discussed repeat his nerve testing, he would like to give the PT a longer trial so will set testing up in October. No current equipment needs. His PT has ordered AFO's for him. [id number] Xiomara DavidDO [facility] [address] [facility] [address] [facility],[address] [place] [address] 10/28/2023 10:21:51 10/28/2023 11:28:10 Bilateral foot drop 9779084780 5270713 M21.371 M21.372 Chronic issue that has been static since his back surgery. He is currently in formal therapies. We discussed repeat his nerve testing, he would like to give the PT a longer trial so will set testing up in October. No current equipment needs. His PT has ordered AFO's for him. Health Concerns Section Related Observation LastModified by Organization Detai ls LastModified Time None Recorded Concern Status LastModified by Organization Details LastModified Time None Recorded Advance Directives Directive None Recorded Payers Encounter Date Sequence Insurance Name Policy Number Policy Jaeger Covered Member ID Jaeger Member ID Guarantor Name 08/17/2023 1 KRISHNA Strauss [id number] Jerry Strauss 09/28/2023 1 JORGE LUISTTYSHAWN [facility] (MEDICAID HMO) Jerry Strauss [id number] Jerry Strauss 10/28/2023 1 AETTYSHAWN [facility] (MEDICAID HMO) Jerry Strauss [id number] Jerry Strauss Notes Date Note Type Note Provider Name and Address Organization Details Recorded Time 08/17/2023 text/html 48 y/o right barrera ded male here for neurologic consultation requested by Dr Phan regarding leg pain and numbness. Jerry is accompanied by his who helps supplement the history for today's visit. Jerry reports he underwent lumbar surgery about two weeks ago. He has been having bilateral leg numbness and weakness associated with falling that began a couple years ago. It has progressively gotten worse.He had a MRI lumbar spine done in April which showed multiple levels of DDD with associated foraminal stenosis severe at mutliple levels. He has moderate stenosis at the L3/4 level. He does feel he has had pain relief he can already tell since the surgery.He has a surgical follow up tomorrow. He is awaiting to start formal therapies. He denies any back injuries. 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 Xiomara David, DO [address], [place], [address], [place] [facility] - [place] & [place] 08/17/2023 13:06:22 09/28/2023 text/html Jerry comes in today for a follow up. Since he was last seen he has started formal therapies. Today he reports he still can't pick his feet up. He is doing therapies and his therapist is ordering him AFO's for the foot drop.He is no longer having numbness down his legs nor any significant back pain.He is taking no medications at this time. INITIAL VISIT: (08/17/23)48 y/o right handed male here for neurologic consultation requested by Dr Pahn regarding leg pain and numbness. Jerry is accompanied by his who helps supplement the history for today's visit. Jerry reports he underwent lumbar surgery about two weeks ago. He has been having bilateral leg numbness and weakness associated with falling that began a couple years ago. It has progressively gotten worse.He had a MRI lumbar spine done in April which showed multiple levels of DDD with associated foraminal stenosis severe at mutliple levels. He has moderate stenosis at the L3/4 level. He does feel he has had pain relief he can already tell since the surgery.He has a surgical follow up tomorrow. He is awaiting to start formal therapies. He denies any back injuries. 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 Xiomara David, DO [address], [place], [address], [facility] - [place] & [place] 09/28/2023 11:44:16
--- OUTSIDE RECORDS SUMMARY | 2024-09-28 19:40 | XMS_ITS | Continuity of Care Document ---
Author Organization [facility] Phone Care Team Providers Care Display Specialist Name Role Phone SHAREE ENGLE Unavailable SHAREE ENLGE Admitting JONA PRADO Primary Care SHAREE ENGLE Primary Attending ALLERGIES AND ADVERSE REACTIONS ALLERGIES AND ADVERSE REACTIONS Code System Allergy Substance Adverse Reaction Date Reaction (Severity) Comment Status Reported By Updated By No Known Allergies [id number] on August 31, 2024 5:46:26 PM [facility] RELATION: Father Status: LIVING SNOMED-CT Diagnosis Age At Onset Information not available RELATION: Mother Status: Cause of : Unknown Age at : Unknown SNOMED-CT Diagnosis Age At Onset Information not available RESULTS Patient: KACY MARK Date of : [birth year] 4 LABORATORY RESULTS ORDER 200: BASIC METABOLIC P LOIS (LOINC: 22699-6) ORDER DATE: August 30, 2024 5:07:00 PM [facility] Specimen Source: Serum Specimen Type: Serum specime n PERFORMING LAB: [address] [id number] Result Comment: Final Result Date: August 30, 2024 6:31:00 PM UT (TECH: RKM) LOINC TEST FLAG RESULT REFERENCE RANGE UPDA VENKATESH BY 2951-2 Sodium [Moles/volume] in Serum or Plasma N 137 mmol/L 137 mmol/L - 147 mmol/L August 30, 2024 6:31:00 PM UT (TECH: RKM) 2823-3 Potassium [Moles/volume] in Serum or Plasma N 3.8 mmol/L 3.5 mmol/L - 5.1 mmol/L August 30, 2024 6:31:00 PM UT (TECH: RKM) 2075-0 Chloride [Moles/volume] in Serum or Plasma N 105 mmol/L 98 mmol/L - 110 mmol/L August 30, 2024 6:31:00 PM UTC (TECH: RKM) 8-9 Carbon dioxide, total [Moles/volume] in Serum or Plasma N 28 mmol/L 21 mmol/L - 30 mmol/L August 30, 2024 6:31:00 PM UTC (TECH: RKM) 84454-0 Anion gap in Serum or Plasma L 4 mmol/L 6 mmol/L - 14 mmol/L August 30, 2024 6:31:00 PM UTC (TECH: RKM) 2345-7 Glucose [Mass/volume] in Serum or Plasma N 81 mg/dL 70 mg/dL - 115 mg/dL August 30, 2024 6:31:00 PM UTC (TECH: RKM) 3094-0 Urea nitrogen [Mass/volume] in Serum or Plasma N 12 mg/dL 9 mg/dL - 20 mg/dL August 30, 2024 6:31:00 PM UTC (TECH: RKM) 2160-0 Creatinine [Mass/volume] in Serum or Plasma N 0.9 mg/dL 0.5 mg/dL - 1.5 mg/dL August 30, 2024 6:31:00 PM UTC (TECH: RKM) 3097-3 Urea nitrogen/Creatinine [Mass Ratio] in Serum or Plasma N 13 10 - 20 August 30, 2024 6:31:00 PM UTC (TECH: RKM) 94811-9 Glomerular filtration rate/1.73 sq M.predicted N 105 mL/min >60 August 30, 2024 6:31:00 PM UTC (TECH: RKM) 70488-8 Osmolality of Serum or Plasma by calculation N 284 mOsmol/Kg 275 mOsmol/Kg - 301 mOsmol/Kg August 30, 2024 6:31:00 PM UTC (TECH: RKM) 54685-2 Calcium [Mass/volume] in Serum or Plasma N 9.3 mg/dL 8.5 mg/dL - 10.8 mg/dL August 30, 2024 6:31:00 PM UTC (TECH: RKM) ORDER 300: CBC NO DIFF HEMOG SAMUEL (LOINC: 27577-7) ORDER DATE: August 30, 2024 5:07:00 PM UTC Specimen Source: Whole Blood Specimen Type: Whole blood s ample PERFORMING LAB: [address] [id number] Result Comment: Final Result Date: August 30, 2024 5:38:00 PM UTC (TECH: EAB) LOINC TEST FLAG RESULT REFERENCE RANGE UPDA VENKATESH BY 6690-2 Leukocytes [#/volume ] in Blood by Automated count N 6.45 K/uL 4.5 K/uL - 11.5 K/uL August 30, 2024 5:38:00 PM UTC (TECH: EAB) 789-8 Erythrocytes [#/volume] in Blood by Automated count N 5.30 M/uL 4.0 M/uL - 5.4 M/uL August 30, 2024 5:38:00 PM UTC (TECH: EAB) 718-7 Hemoglobin [Mass/volume] in Blood N 15.2 g/dL 14.0 g/dL - 18.0 g/dL August 30, 2024 5:38:00 PM UTC (TECH: EAB) 4544-3 Hematocrit [Volume Fraction] of Blood by Automated count N 44.4 % 40 % - 54 % August 30, 2024 5:38:00 PM UTC (TECH: EAB) 787-2 Erythrocyte mean corpuscular volume [Entitic volume] by Automated count N 83.8 fL 80.0 fL - 100.0 fL August 30, 2024 5:38:00 PM UTC (TECH: EAB) 785-6 Erythrocyte mean corpuscular hemoglobin [Entitic mass] by Automated count N 28.7 pg 26.0 pg - 32.0 pg August 30, 2024 5:38:00 PM UTC (TECH: EAB) 786-4 Erythrocyte mean corpuscular hemoglobin concentration [Mass/volume] by Automated count N 34.2 g/dL 32.0 g/dL - 36.0 g/dL August 30, 2024 5:38:00 PM UTC (TECH: EAB) 788-0 Erythrocyte distribution width [Ratio] by Automated count N 12.6 % 11.5 % - 14.5 % August 30, 2024 5:38:00 PM UTC (TECH: EAB) 777-3 Platelets [#/volume] in Blood by Automated count N 203 K/uL 142 K/uL - 424 K/uL August 30, 2024 5:38:00 PM UTC (TECH: EAB) 00973-1 Platelet mean volume [Entitic volume] in Blood by Automated count H 10.8 fL 6.8 fL - 10.2 fL August 30, 2024 5:38:00 PM UTC (TECH: EAB) ORDER 400: PT WITH INR AND P TT (LOINC: 5964-2) ORDER DATE: August 30, 2024 5:07:00 PM UTC Specimen Source: Plasma Specimen Type: Plasma specim en PERFORMING LAB: [address] [id number] Result Comment: Final Result Date: August 30, 2024 5:51:00 PM UTC (TECH: A/V) LOINC TEST FLAG RESULT [place] [address]-9 INR in Platelet poor plasma or blood by Coagulation assay N 11.1 seconds 9.0 seconds - 12.0 seconds August 30, 2024 5:51:00 PM UTC (TECH: A/V) 02970-0 INR in Platelet poor plasma by Coagulation assay --post heparin adsorption L 1.1 2.0 - 3.0 August 30, 2024 5:51:00 PM UTC (TECH: A/V) 58338-7 Activated partial thromboplastin time (aPTT) in Platelet poor plasma by Coagulation assay N 30.0 seconds 20 seconds - 34 seconds August 30, 2024 5:51:00 PM UTC (TECH: A/V) ORDER 500: TYPE/SCREEN (LOIN C: 22392-5) ORDER DATE: August 30, 2024 5:07:00 PM UTC Specimen Source: Whole Blood Specimen Type: Whole blood s ample PERFORMING LAB: [address] [id number] Result Comment: Final Result Date: August 30, 2024 5:07:00 PM UTC (TECH: HL7) LOINC TEST FLAG RESULT [place] [address]-8 Clinical information N Completed August 30, 2024 5:07:00 PM UTC (TECH: balaji) 882-1 ABO and Rh group [Ty pe] in Blood N O POSITVE August 30, 2024 5:07:00 PM UTC (TECH: HL7) 890-4 Blood group antibody screen [Presence] in Serum or Plasma N NEGATIVE August 30, 2024 5:07:00 PM UTC (TECH: HL7) 52479-7 History of Procedure N Completed August 30, 2024 5:07:00 PM [facility] (TECH: HL7) LABORATORY NARRATIVE RESULTS Information is not available RADIOLOGY RESULTS Information is not available PATHOLOGY NARRATIVE RESULTS Information is not available MICROBIOLOGY RESULTS No Micro Labs/Results Exist for Patient BLOOD ADMIN RESULTS Information is not available TREATMENT PLAN DISCHARGE MEDICATIONS Status RXNORM Medication Dose Route Frequency Dates Comments U pdated By Patient discharge medication information is not available. PATIENT OPEN ORDERS Code System Description Frequency Occurrences Priority [place] [address] [facility] units available [#] ONE TIME 0 Routine August 30, 2024 5:07:0 0 PM [facility] KADIE Banks MD [id number] on August 30, 2024 5:07:00 PM [facility] [address]154-6 [facility] Packed erythrocytes units available [#] ONE TIME 0 Routine August 30, 2024 5:07:0 0 PM [facility] KADIE Banks MD [id number] on August 30, 2024 5:07:00 PM [facility] SCHEDULED PROCEDURES Code System Description Status Scheduled Date Upd ated By Patient scheduled procedure information is not available. MEDICATIONS HOME MEDICATIONS Status RXNORM NDC Medication Dose Route Frequency Dates Comments Reported By Updated By Drug Treatment Unknown DISCHARGE MEDICATIONS Status RXNORM NDC Medication Dose Route Frequency Dates Comments Physician Updated By No Discharge Medication Info rmation Available INPATIENT MEDICATIONS Status RXNORM NDC Medication Dose Route Frequency Rat e Quantity Dates Comments Physician Updated By No Inpatient Medication Info rmation Available SOCIAL HISTORY SOCIAL HISTORY SNOMED-CT Social History Element Description Effective Dates Offered Cessation Comment UpdatedBy [id number] Historical Tobacco smoking status Never Smoked [id number] on March 23, 2024 7:57:19 PM [facility] SOCIAL HISTORY - Gender Sex: Male SOCIAL HISTORY - Status : status i nformation is not available Intention in Next Year: intention information is not available SOCIAL HISTORY - Sexual Behavior Sexual Orientation Gender Identity SNOMED-CT Description SNO MED -CT Description Activity Level No of Partners Partner Type UpdatedBy Information is not available HEALTH CONCERNS Problems Concern Status Health Concern problem infor mation not available. Smoking Status Status Years Used Consumed packs p er day Health Concern smoking histo ry information not available. Family History Concern Status Health Concern family histor y information not available. ENCOUNTERS ENCOUNTER INFORMATION Reason for Visit LAB Admission August 30, 2024 4:57:00 PM UTC [facility] [address] [facility] [id number] Discharge August 31, 2024 12:57:00 AM UTC D ISCHARGED TO HOME OR SELF CARE ENCOUNTER DIAGNOSES Notes information is not boby ilable. Code System Diagnosis Onset Date Diagnosis information is not available. 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
--- OUTSIDE RECORDS SUMMARY | 2024-09-28 19:40 | XMS_ITS | Continuity of Care Document ---
Author Organization [facility] Phone Care Team Providers Care Powder Operator Name Role Phone DEAN VALADEZ Primary Attending DEAN VALADEZ Admitting DEAN VALADEZ Unavailable JONA PRADO Primary Care ALLERGIES AND ADVERSE REACTIONS ALLERGIES AND ADVERSE REACTIONS Code System Allergy Substance Adverse Reaction Date Reaction (Severity) Comment Status Reported By Updated By No Known Allergies [id number] on September 05, 2024 9:36:33 PM [place] FAMILY HISTORY RELATION: Father Status: LIVING SNOMED-CT Diagnosis Age At Onset Information not available RELATION: Mother Status: Cause of : Unknown Age at : Unknown SNOMED-CT Diagnosis Age At Onset Information not available RESULTS Patient: KACY MARK Date of : [birth year] 75 4 LABORATORY RESULTS ORDER 100: CBC W/ AUTO DIFF (LOINC: 73440-0) ORDER DATE: September 20, 2024 5:52:00 PM UT Specimen Source: Whole Blood Specimen Type: Whole blood s ample PERFORMING LAB: [address] [id number] Result Comment: Final Result Date: September 20, 2024 6:11:00 PM UTC (TECH: KNM) LOINC TEST FLAG RESULT REFERENCE RANGE UPDA VENKATESH BY 6690-2 Leukocytes [#/volume ] in Blood by Automated count N 11.47 K/uL 4.5 K/uL - 11.5 K/uL Ap 2024 6:11:00 PM UTC (TECH: KNM) 789-8 Erythrocytes [#/volu me] in Blood by Automated count L 3.95 M/uL 4.0 M/uL - 5.4 M/uL September 20 6:11:00 PM UTC (TECH: KNM) 718-7 Hemoglobin [Mass/vol ume] in Blood L 10.9 g/dL 14.0 g/dL - 18.0 g/dL September 20, 2024 6:11:00 PM UTC (TECH: Groove) 4544-3 Hematocrit [Volume Fraction] of Blood by Automated count L 33.6 % 40 % - 54 % September 20, 2024 6:11:00 PM UTC (TECH: IdenIveM) 787-2 Erythrocyte mean corpuscular volume [Entitic volume] by Automated count N 85.1 fL 80.0 fL - 100.0 fL September 20, 2024 6:11:00 PM UTC (TECH: Groove) 785-6 Erythrocyte mean corpuscular hemoglobin [Entitic mass] by Automated count N 27.6 pg 26.0 pg - 32.0 pg September 20, 2024 6:11:00 PM UTC (TECH: Groove) 786-4 Erythrocyte mean corpuscular hemoglobin concentration [Mass/volume] by Automated count N 32.4 g/dL 32.0 g/dL - 36.0 g/dL September 20, 2024 6:11:00 PM UTC (TECH: Groove) 788-0 Erythrocyte distribu tion width [Ratio] by Automated count N 13.3 % 11.5 % - 14.5 % September 20, 2024 6:11:00 PM UTC (TECH: Groove) 777-3 Platelets [#/volume] in Blood by Automated count H 443 K/uL 142 K/uL - 424 K/uL Sep 6:11:00 PM UTC (TECH: Groove) 21055-4 Platelet mean volume [Entitic volume] in Blood by Automated count N 10.0 fL 6.8 fL - 10.2 fL September 20, 2024 6:11:00 PM UTC (TECH: Groove) 63174-8 Neutrophils/100 leukocytes in Blood H 72.7 % 50 % - 70 % September 20 6:11:00 PM UTC (TECH: Groove) 29715-8 Lymphocytes/100 leukocytes in Blood L 17.5 % 18.0 % - 42.0 % September 20 6:11:00 PM UTC (TECH: Groove) 97173-3 Monocytes/100 leukoc ytes in Blood N 8.6 % 2.0 % - 11.0 % September 20, 2024 6:11:00 PM UTC (TECH: KNM) 73336-2 Eosinophils/100 leukocytes in Blood L 0.6 % 1.0 % - 3.0 % September 20 6:11:00 PM UTC (TECH: KNM) 60735-9 Basophils/100 leukoc ytes in Blood N 0.3 % 0.0 % - 2.0 % September 20, 2024 6:11:00 PM UTC (TECH: IdenIveM) 44703-6 Immature granulocytes/100 leukocytes in Blood by Automated count N 0.3 % 0.0 % - 0.8 % September 20, 2024 6:11:00 PM UTC (TECH: KNM) 32173-5 Nucleated cells [#/volume] in Blood N 0.0 % September 20 6:11:00 PM UTC (TECH: KNM) 95526-5 Neutrophils [#/volum e] in Blood N 8.33 K/uL September 20, 2024 6:11:00 PM UTC (TECH: KNM) 50813-1 Lymphocytes [#/volum e] in Blood N 2.01 K/uL September 20, 2024 6:11:00 PM UTC (TECH: KNM) 81341-5 Monocytes [#/volume] in Blood N 0.99 K/uL September 20, 2024 6:11:00 PM UTC (TECH: KNM) 12529-3 Eosinophils [#/volum e] in Blood N 0.07 K/uL September 20, 2024 6:11:00 PM UTC (TECH: KNM) 704-7 Basophils [#/volume] in Blood by Automated count N 0.03 K/uL September 6:11:00 PM UTC (TECH: KNM) 79081-6 Immature granulocyte s [#/volume] in Blood N 0.04 K/uL September 20 6:11:00 PM UTC (TECH: KNM) 93016-2 Nucleated cells [#/volume] in Blood N 0.00 k/uL September 20 6:11:00 PM UTC (TECH: KNM) 79281-6 Manual differential comment [interpretation] in Blood Narrative N NO September 20, 2024 6:11:00 PM UTC (TECH: NASIM) LABORATORY NARRATIVE RESULTS Information is not available RADIOLOGY RESULTS Information is not available PATHOLOGY NARRATIVE RESULTS Information is not available MICROBIOLOGY RESULTS No Micro Labs/Results Exist for Patient BLOOD ADMIN RESULTS Information is not available MEDICATIONS HOME MEDICATIONS Status RXNORM NDC Medication [...] Description Effective Dates Offered Cessation Comment UpdatedBy [id number] Historical Tobacco smoking status Never Smoked [id number] on March 23, 2024 7:57:19 PM UTC SOCIAL HISTORY - Gender Sex: Male SOCIAL [...] Concern family histor y information not available. MEDICAL EQUIPMENT MEDICAL EQUIPMENT Device Status Quantity Dates Procedure Comments Updated By ATEC CALIBRATE RIA: Assigning Authority: FDA ACTIVE 1 Implanted: September 05, 2024 FUSION SPINE TRANSFORAMINAL INTERBODY LUMBAR [id number] on September 05, 2024 9:48:55 PM UTC ATEC CALIBRATE RIA: Assigning Authority: FDA ACTIVE 1 Implanted: September 05, 2024 FUSION SPINE TRANSFORAMINAL INTERBODY LUMBAR [id number] on September 05, 2024 9:49:52 PM UTC ATEC CALIBRATE RIA: Assigning Authority: FDA ACTIVE 1 Implanted: September 05, 2024 FUSION SPINE TRANSFORAMINAL INTERBODY LUMBAR [id number] on September 05, 2024 9:50:39 PM UTC DBM PUTTY RIA: Assigning Authority: FDA ACTIVE 6 Implanted: September 05, 2024 FUSION SPINE TRANSFORAMINAL INTERBODY LUMBAR [id number] on September 06, 2024 12:37:58 PM UTC DEMINERALIZED FIBERS RIA: Assigning Authority: FDA ACTIVE 1 Implanted: September 05, 2024 FUSION SPINE TRANSFORAMINAL INTERBODY LUMBAR [id number] on September 05, 2024 9:54:28 PM UTC CANCELLOUS 1-4MM RIA: Assigning Authority: FDA ACTIVE 1 Implanted: September 05, 2024 FUSION SPINE TRANSFORAMINAL INTERBODY LUMBAR [id number] on September 06, 2024 12:39:14 PM UTC Screw RIA: Assigning Authority: FDA ACTIVE 3 Implanted: September 05, 2024 FUSION SPINE TRANSFORAMINAL INTERBODY LUMBAR [id number] on September 05, 2024 9:56:19 PM UTC Screw RIA: Assigning Authority: FDA ACTIVE 5 Implanted: September 05, 2024 FUSION SPINE TRANSFORAMINAL INTERBODY LUMBAR [id number] on September 06, 2024 12:37:20 PM UTC Screw RIA: Assigning Authority: FDA ACTIVE 8 Implanted: September 05, 2024 FUSION SPINE TRANSFORAMINAL INTERBODY LUMBAR [id number] on September 05, 2024 9:57:19 PM UTC Terrance fixation system RIA: Assigning Authority: FDA ACTIVE 1 Implanted: September 05, 2024 FUSION SPINE TRANSFORAMINAL INTERBODY LUMBAR 85MM TERRANCE [id number] on September 06, 2024 12:36:39 PM UTC Terrance fixation system RIA: Assigning Authority: FDA ACTIVE 1 Implanted: September 05, 2024 FUSION SPINE TRANSFORAMINAL INTERBODY LUMBAR 95MM TERRANCE [id number] on September 05, 2024 9:58:25 PM UTC ENCOUNTERS ENCOUNTER INFORMATION Reason for Visit ANEMIA Admission September 20, 2024 5:36:00 PM UTC [address] [address] Discharge September 21, 2024 1:36:00 AM UTC DIS CHARGED TO HOME OR SELF CARE ENCOUNTER DIAGNOSES Notes information is not boby ilable. Code System Diagnosis Onset Date Diagnosis information is not available. ABSTRACT DIAGNOSES Code System Diagnosis Updated By D64.9 ICD10 ANEMIA, UNSPECIFIED [id number] on September 23, 2024 1:14:50 PM UTC D64.9 ICD10 ANEMIA, UNSPECIFIED [id number] on September 23, 2024 1:14:50 PM UTC CARE TEAM Care Powder Operator Role DEAN VALADEZ Primary Attending DEAN VALADEZ Admitting DEAN VALADEZ Referring JONA PRADO Primary Care CARE TEAM CARE eap consultant Role on Team Status Start Date End Date Update d By EVE ZAMBRANO PCP normal September 20, 2024 5:38:32 PM [place] September 21, 2024 1:36:00 AM UT [id number] on September 20, 2024 5:38:32 PM [facility] ALLYSON MORAN PA-C Referring normal September 20 5:38:32 PM UT September 21, 2024 1:36:00 AM [facility] [id number] on September 20, 2024 5:38:32 PM [facility] ALLYSON MORAN PA-C Attending normal September 20 5:38:32 PM [facility] September 21, 2024 1:36:00 AM UT [id number] on September 20, 2024 5:38:32 PM [facility] ALLYSON MORAN PA-C Admitting normal September 20 5:38:32 PM [facility] September 21, 2024 1:36:00 AM UT [id number] on September 20, 2024 5:38:32 PM [facility]
--- OUTSIDE RECORDS SUMMARY | 2024-09-28 19:40 | XMS_ITS | Continuity of Care Document ---
Author Organization [facility] Phone Care Team Providers Care Audit Practice Intern Name Role Phone CLAUDIA STACY Unavailable CLAUDIA STACY Primary Attending CLAUDIA STACY Admitting JONA PRADO Primary Care SHAREE PHAN Surgeon ALLERGIES AND ADVERSE REACTIONS ALLERGIES AND ADVERSE REACTIONS Code System Allergy Substance Adverse Reaction Date Reaction (Severity) Comment Status Reported By Updated By No Known Allergies [email or web address] on September 05, 2024 9:36:33 PM UT ASSESSMENTS Spinal stenosis of lumbar region ; Pain management ; FAMILY HISTORY RELATION: Father Status: LIVING SNOMED-CT Diagnosis Age At Onset Information not available RELATION: Mother Status: Cause of : Unknown Age at : Unknown SNOMED-CT Diagnosis Age At Onset Information not available PROBLEMS PATIENT PROBLEMS Code Description/Comments Category Status Upda venkatesh By [id number] Spinal stenosis of lumbar region act delia [email or web address] on September 05, 2024 9:36:45 PM UT [id number] Pain management active [email or web address] o n September 06, 2024 12:02:12 AM UT RESULTS Patient: KACY MARK Date of : [birth year] 75 4 LABORATORY RESULTS ORDER 300: URINALYSIS WITH M ICROSCOPIC (LOINC: 80142-9) ORDER DATE: September 05, 2024 10:30:00 AM UTC Specimen Source: Urine Specimen Type: Urine specime n PERFORMING LAB: [address] [id number] Result Comment: Final Result Date: September 05, 2024 11:22:00 AM UTC (TECH: SMB) LOINC TEST FLAG RESULT REFERENCE RANGE UPDA VENKATESH BY 5778-6 Color of Urine N YELLOW YELLOW September 05, 2024 11:22:00 AM UTC (TECH: SMB) 5767-9 Appearance of Urine N CLEAR CLEAR September 05, 2024 11:22:00 AM UTC (TECH: SMB) 5792-7 Glucose [Mass/volume] in Urine by Test strip N NEGATIVE NEGATIVE September 05 11:22:00 AM UTC (TECH: SMB) 36226-7 Bilirubin.total [Mass/volume] in Urine by Automated test strip N NEGATIVE NEGATIVE September 05, 2024 11:22:00 AM UTC (TECH: SMB) 5797-6 Ketones [Mass/volume] in Urine by Test strip N NEGATIVE NEGATIVE September 05 11:22:00 AM UTC (TECH: SMB) 2965-2 Specific gravity of Urine H 1.030 1.005 - 1.025 September 05, 2024 11:22:00 AM UTC (TECH: SMB) 94585-8 Leukocytes [Presence] in Urine sediment by Light microscopy N NEGATIVE NEGATIVE September 05, 2024 11:22:00 AM UTC (TECH: SMB) 78990-2 pH of Urine by Automated test strip N 6.0 5.0 - 8.0 September 05, 2024 11:22:00 AM UTC (TECH: SMB) 2887-8 Protein [Presence] in Urine N NEGATIVE NEGATIVE September 05, 2024 11:22:00 AM UTC (TECH: SMB) 75157-7 Urobilinogen [Mass/volume] in Urine by Automated test strip N 0.2 E.U./dL 0.0 - 0.2 September 05, 2024 11:22:00 AM UTC (TECH: SMB) 5802-4 Nitrite [Presence] in Urine by Test strip N NEGATIVE NEGATIVE September 05, 2024 11:22:00 AM UTC (TECH: SMB) 84104-2 Leukocyte esterase [Presence] in Urine by Automated test strip N NEGATIVE NEGATIVE September 05, 2024 11:22:00 AM UTC (TECH: SMB) 78388-1 Microscopic exam [interpretation] of Urine by Cytology N YES September 05, 2024 11:22:00 AM UTC (TECH: SMB) 28130-8 Erythrocytes [#/area] in Urine sediment by Microscopy high power field N NONE SEEN NONE SEEN/HPF September 05, 2024 11:22:00 AM UTC (TECH: SMB) 5821-4 Leukocytes [#/area] in Urine sediment by Microscopy high power field N RARE NONE SEEN/HPF September 05, 2024 11:22:00 AM UTC (TECH: SMB) 91152-4 Epithelial cells.squamous [#/area] in Urine sediment by Microscopy high power field N RARE NONE SEEN September 05, 2024 11:22:00 AM UTC (TECH: SMB) 5769-5 Bacteria [#/area] in Urine sediment by Microscopy high power field N TRACE NEGATIVE September 05, 2024 11:22:00 AM UTC (TECH: SMB) 82870-8 Spermatozoa [#/area] in Urine sediment by Microscopy high power field N MODERATE NONE SEEN September 05, 2024 11:22:00 AM UTC (TECH: SMB) ORDER 400: MRSA SURVEILLANCE BY PCR (LOINC: 17637-1) ORDER DATE: September 05, 2024 10:31:00 AM UTC Specimen Source: Culture Specimen Type: Culture - gen eral PERFORMING LAB: [address] [id number] Result Comment: Final Result Date: September 05, 2024 12:22:00 PM UTC (TECH: SMB) LOINC TEST FLAG RESULT [place] [address]-6 Methicillin resistan t Staphylococcus aureus (MRSA) DNA [Presence] in Unspecified specimen by Probe and target amplification method N NEGATIVE NEGATIVE September 05, 2024 12:22:00 PM UTC (TECH: SMB) ORDER 500: HEMOGLOBIN AND HE MATOCRIT HH (LOINC: 11583-5) ORDER DATE: September 05, 2024 6:23:00 PM UTC Specimen Source: Whole Blood Specimen Type: Whole blood s ample PERFORMING LAB: [address] [id number] Result Comment: Final Result Date: September 05, 2024 6:38:00 PM UTC (TECH: KDR) LOINC TEST FLAG RESULT REFERENCE RANGE UPDA VENKATESH BY 718-7 Hemoglobin [Mass/volume] in Blood N 14.1 g/dL 14.0 g/dL - 18.0 g/dL September 05, 2024 6:38:00 PM UTC (TECH: KDR) 4544-3 Hematocrit [Volume Fraction] of Blood by Automated count N 40.7 % 40 % - 54 % September 05 6:38:00 PM UTC (TECH: KDR) ORDER 1000: CBC NO DIFF HEMO GRAM (LOINC: 37251-7) ORDER DATE: September 05, 2024 9:43:00 PM UTC Specimen Source: Whole Blood Specimen Type: Whole blood s ample PERFORMING LAB: [address] [id number] Result Comment: Final Result Date: September 06, 2024 10:46:00 AM UTC (TECH: SMB) LOINC TEST FLAG RESULT REFERENCE RANGE UPDA VENKATESH BY 6690-2 Leukocytes [#/volume ] in Blood by Automated count H 18.86 K/uL 4.5 K/uL - 11.5 K/uL September 06, 2024 10:46:00 AM UTC (TECH: SMB) 789-8 Erythrocytes [#/volume] in Blood by Automated count L 3.68 M/uL 4.0 M/uL - 5.4 M/uL September 06, 2024 10:46:00 AM UTC (TECH: SMB) 718-7 Hemoglobin [Mass/volume] in Blood L 10.6 g/dL 14.0 g/dL - 18.0 g/dL September 06, 2024 10:46:00 AM UTC (TECH: SMB) 4544-3 Hematocrit [Volume Fraction] of Blood by Automated count L 31.8 % 40 % - 54 % September 06, 2024 10:46:00 AM UTC (TECH: SMB) 787-2 Erythrocyte mean corpuscular volume [Entitic volume] by Automated count N 86.4 fL 80.0 fL - 100.0 fL September 06, 2024 10:46:00 AM UTC (TECH: SMB) 785-6 Erythrocyte mean corpuscular hemoglobin [Entitic mass] by Automated count N 28.8 pg 26.0 pg - 32.0 pg September 06, 2024 10:46:00 AM UTC (TECH: SMB) 786-4 Erythrocyte mean corpuscular hemoglobin concentration [Mass/volume] by Automated count N 33.3 g/dL 32.0 g/dL - 36.0 g/dL September 06, 2024 10:46:00 AM UTC (TECH: SMB) 788-0 Erythrocyte distribution width [Ratio] by Automated count N 13.0 % 11.5 % - 14.5 % September 06, 2024 10:46:00 AM UTC (TECH: SMB) 777-3 Platelets [#/volume] in Blood by Automated count N 197 K/uL 142 K/uL - 424 K/uL September 06, 2024 10:46:00 AM UTC (TECH: SMB) 95799-0 Platelet mean volume [Entitic volume] in Blood by Automated count H 11.3 fL 6.8 fL - 10.2 fL September 06, 2024 10:46:00 AM UTC (TECH: SMB) ORDER 1100: BASIC METABOLIC PANEL (LOINC: 78297-2) ORDER DATE: September 05, 2024 9:43:00 PM UTC Specimen Source: Serum Specimen Type: Serum specime n PERFORMING LAB: [address] [id number] Result Comment: Final Result Date: September 06, 2024 11:22:00 AM UTC (TECH: Create) LOINC TEST FLAG RESULT REFERENCE RANGE UPDA VENKATESH BY 2951-2 Sodium [Moles/volume] in Serum or Plasma N 137 mmol/L 137 mmol/L - 147 mmol/L September 06, 2024 11:22:00 AM UTC (TECH: Create) 2823-3 Potassium [Moles/volume] in Serum or Plasma H 5.2 mmol/L 3.5 mmol/L - 5.1 mmol/L September 06, 2024 11:22:00 AM UTC (TECH: MCP) 2075-0 Chloride [Moles/volume] in Serum or Plasma N 103 mmol/L 98 mmol/L - 110 mmol/L September 06, 2024 11:22:00 AM UTC (TECH: MCP) 8-9 Carbon dioxide, total [Moles/volume] in Serum or Plasma N 29 mmol/L 21 mmol/L - 30 mmol/L September 06, 2024 11:22:00 AM UTC (TECH: MCP) 00411-1 Anion gap in Serum or Plasma L 5 mmol/L 6 mmol/L - 14 mmol/L September 06, 2024 11:22:00 AM UTC (TECH: MCP) 2345-7 Glucose [Mass/volume] in Serum or Plasma H 132 mg/dL 70 mg/dL - 115 mg/dL September 06, 2024 11:22:00 AM UTC (TECH: Create) 3094-0 Urea nitrogen [Mass/volume] in Serum or Plasma N 16 mg/dL 9 mg/dL - 20 mg/dL September 06, 2024 11:22:00 AM UTC (TECH: Create) 2160-0 Creatinine [Mass/volume] in Serum or Plasma N 1.0 mg/dL 0.5 mg/dL - 1.5 mg/dL September 06, 2024 11:22:00 AM UTC (TECH: Create) 3097-3 Urea nitrogen/Creatinine [Mass Ratio] in Serum or Plasma N 16 10 - 20 September 06, 2024 11:22:00 AM UTC (TECH: Create) 50573-5 Glomerular filtration rate/1.73 sq M.predicted N 92 mL/min >60 September 06, 2024 11:22:00 AM UTC (TECH: Create) 48807-5 Osmolality of Serum or Plasma by calculation N 288 mOsmol/Kg 275 mOsmol/Kg - 301 mOsmol/Kg September 06, 2024 11:22:00 AM UTC (TECH: Create) 83225-3 Calcium [Mass/volume] in Serum or Plasma L 8.0 mg/dL 8.5 mg/dL - 10.8 mg/dL September 06, 2024 11:22:00 AM UT (TECH: Create) ORDER 2100: POTASSIUM (LOINC : 2823-3) ORDER DATE: September 06, 2024 4:40:00 PM UT Specimen Source: Serum Specimen Type: Serum specime n PERFORMING LAB: [address] [id number] Result Comment: Final Result Date: September 06, 2024 6:20:00 PM UT (TECH: Create) LOINC TEST FLAG RESULT REFERENCE RANGE UPDA VENKATESH BY 2823-3 Potassium [Moles/volume] in Serum or Plasma N 4.3 mmol/L 3.5 mmol/L - 5.1 mmol/L September 06, 2024 6:20:00 PM UT (TECH: Create) ORDER 2600: BASIC METABOLIC PANEL (LOINC: 74602-0) ORDER DATE: September 06, 2024 7:11:00 PM UTC Specimen Source: Serum Specimen Type: Serum specime n PERFORMING LAB: [address] [id number] Result Comment: Final Result Date: September 07, 2024 10:38:00 AM UTC (TECH: [employer]) LOINC TEST FLAG RESULT REFERENCE RANGE UPDA VENKATESH BY 2951-2 Sodium [Moles/volume ] in Serum or Plasma N 137 mmol/L 137 mmol/L - 147 mmol/L September 07, 2024 10:38:00 AM UTC (TECH: SMB) 2823-3 Potassium [Moles/volume] in Serum or Plasma N 4.0 mmol/L 3.5 mmol/L - 5.1 mmol/L September 07, 2024 10:38:00 AM UTC (TECH: SMB) 2075-0 Chloride [Moles/volume] in Serum or Plasma N 104 mmol/L 98 mmol/L - 110 mmol/L September 07, 2024 10:38:00 AM UTC (TECH: SMB) 8-9 Carbon dioxide, tota l [Moles/volume] in Serum or Plasma H 31 mmol/L 21 mmol/L - 30 mmol/L September 07, 2024 10:38:00 AM UTC (TECH: [employer]) 89029-7 Anion gap in Serum o r Plasma L 2 mmol/L 6 mmol/L - 14 mmol/L September 07, 2024 10:38:00 AM UTC (TECH: SMB) 2345-7 Glucose [Mass/volume ] in Serum or Plasma N 96 mg/dL 70 mg/dL - 115 mg/dL September 07, 2024 10:38:00 AM UTC (TECH: SMB) 3094-0 Urea nitrogen [Mass/volume] in Serum or Plasma N 11 mg/dL 9 mg/dL - 20 mg/dL September 07 10:38:00 AM UTC (TECH: SMB) 2160-0 Creatinine [Mass/volume] in Serum or Plasma N 0.9 mg/dL 0.5 mg/dL - 1.5 mg/dL September 07, 2024 10:38:00 AM UTC (TECH: SMB) 3097-3 Urea nitrogen/Creatinine [Mass Ratio] in Serum or Plasma N 12 10 - 20 September 07, 2024 10:38:00 AM UTC (TECH: SMB) 64100-9 Glomerular filtratio n rate/1.73 sq M.predicted N 105 mL/min >60 September 07, 2024 10:38:00 AM [facility] (TECH: [employer]) 56653-8 Osmolality of Serum or Plasma by calculation N 284 mOsmol/Kg 275 mOsmol/Kg - 30 1 mOsmol/Kg September 07, 2024 10:38:00 AM [facility] (TECH: [employer]) 38530-7 Calcium [Mass/volume ] in Serum or Plasma L 7.9 mg/dL 8.5 mg/dL - 10.8 mg/dL September 07, 2024 10:38:00 AM [facility] (TECH: [employer]) LABORATORY NARRATIVE RESULTS Information is not available RADIOLOGY RESULTS Information is not available PATHOLOGY NARRATIVE RESULTS Information is not available MICROBIOLOGY RESULTS No Micro Labs/Results Exist for Patient BLOOD ADMIN RESULTS Information is not available TREATMENT PLAN DISCHARGE MEDICATIONS Status RXNORM Medication Dose Route Frequency Dates Comments U pdated By [facility] [id number] PERCOCET 5-325 MG 1 TAB BY MOUTH EVERY FOUR HOURS NEEDED Prescri bed: September 06, 2024 4:33:53 PM [facility] [id number] on September 06, 2024 4:33:53 PM [facility] PATIENT OPEN ORDERS Code System Description Frequency Occurrences Priority Start Date Ordering Physician Updated By Patient open order informati on is not available. SCHEDULED PROCEDURES Code System Description Status Scheduled Date Upd ated By Patient scheduled procedure information is not available. HOSPITAL COURSE HOSPITAL COURSE Note Title Discharge Summary Date Of Service September 07, 2024 3:50: 09 PM [facility] Created By [id number] on September 07, 2024 3:50:09 PM [facility] Signed By [id number] on September 08, 2024 9:17:11 PM [facility] Patient admitted to the [facility]. Re-evaluated there this morning. No new acute complaints. Pain controlled. Weaned off supplemental oxygen. No lower extremity numbness or tingling. No bowel or bladder incontinence. Denies any headaches. No fevers or chills. Postop day 1 he was re-evaluated by Orthopedics who recommended keeping the patient for an additional day. He had not received his brace and had not been up with physical therapy. He remained in the hospital overnight and I re-evaluated him in the medical-surgical unit this morning. He feels well. His Noel will be removed in he will be able to be discharged home with home health. I did go over discharge diagnosis treatment plan he expressed understanding and agreement. MEDICATIONS HOME MEDICATIONS Status RXNORM NDC Medication Dose Route Frequency Dates Comments Reported By Updated By Patient not on Self-Medications [email or web address] on September 05, 2024 9:37:00 PM [facility] DISCHARGE MEDICATIONS Status RXNORM ND Medication Dose Route Frequency Dates Comments Physician Updated By Vance stratton [id number] 0985 6051 262 PERCOCET 5-325 MG 1.0 TAB BY MOUTH EVERY FOUR HOURS NEEDED Prescr ibed: September 06, 2024 4:33:5 3 PM [facility] JIMBO Stratton APRN [id number] on September 06, 2024 4:33:53 PM [facility] INPATIENT MEDICATIONS Status RXNORM ND Medication Dose Route Frequency Rat e Quantity Dates Comments Physician Updated By Daphnie inued [id number] 2828 5623 105 ANCEF 2 G SOLR 2000. 0 MG INTRAV ENOUS UNSCHEDULE D 3.0 ML/MIN Start: September 05, 2024 10:00: 00 AM UT End: September 06, 2024 4:33:5 3 PM UT KADIE Banks MD [id number] on September 08, 2024 4:20:00 AM [facility] Discont inued 0040 9488 720 sterile water for injection SOLN 15.0 ML INTRAV ENOUS UNSCHEDULE D 3.0 ML/MIN Start: September 05, 2024 10:00: 00 AM UT End: September 06, 2024 4:33:5 3 PM UT KADIE Banks MD [id number] on September 08, 2024 4:20:00 AM [facility] Discont inued [id number] 3168 1602 725 fentaNYL (SUBLIMAZE) 0.05 MG/ML SOLN 100.0 MCG IV PUSH ONE TIME ONLY Start: September 05, 2024 11:18: 00 AM UT End: September 05, 2024 11:18: 00 AM [facility] KADIE Banks MD INTERFAC ED on September 05, 2024 11:16:00 AM [facility] Discont inued [id number] 8088 1060 502 midazolam (VERSED) 2 MG/2 ML SOLN 2.0 MG IV PUSH ONE TIME ONLY Start: September 05, 2024 11:18: 00 AM UT End: September 05, 2024 11:18: 00 AM [facility] KADIE Banks MD INTERFAC ED on September 05, 2024 11:16:00 AM UTC Discont inued 613252 4086 6908 002 KETAMINE HCL 50 MG/5ML SOSY 10.0 MG ONE TIME ONLY Start: September 05, 2024 11:18: 00 AM UTC End: September 05, 2024 11:18: 00 AM UTC KADIE Banks MD INTERFAC ED on September 05, 2024 11:16:00 AM UTC Discont inued 660476 6950 9163 802 dexmedetomi dine (PRECEDEX) 200 MCG SOLN 200.0 MCG ONE TIME ONLY Start: September 05, 2024 11:18: 00 AM UTC End: September 05, 2024 11:18: 00 AM UTC KADIE Banks MD INTERFAC ED on September 05, 2024 11:17:00 AM UTC Discont inued 583306 5191 3021 505 THROMBIN-JM I 5000 UNIT SOLR 5000. 0 UNT ONE TIME ONLY Start: September 05, 2024 12:05: 00 PM UTC End: September 05, 2024 12:05: 00 PM UTC KADIE Banks MD INTERFAC ED on September 05, 2024 12:04:00 PM UTC Discont inued 9291080 9193 7034 001 vancomycin (VANCOCIN) 1000 MG SOLR 1000. 0 MG ONE TIME ONLY Start: September 05, 2024 12:05: 00 PM UTC End: September 05, 2024 12:05: 00 PM UTC KADIE Banks MD INTERFAC ED on September 05, 2024 12:04:00 PM UTC Discont inued [id number] 6902 9115 901 bupivacaine PF 0.25% SOLN 10.0 ML ONE TIME ONLY Start: September 05, 2024 12:05: 00 PM UTC End: September 05, 2024 12:05: 00 PM UTC KADIE Banks MD INTERFAC ED on September 05, 2024 12:04:00 PM UTC Discont inued 3140785 6098 3033 335 HEPARIN NA (PORK) LOCK FLSH PF 100 UNIT/ML SOLN 500.0 UNT IV FLUSH ONE TIME ONLY Start: September 05, 2024 12:05: 00 PM UTC End: September 05, 2024 12:05: 00 PM UTC KADIE Banks MD INTERFAC ED on September 05, 2024 12:04:00 PM UTC Discont inued [id number] 2628 3045 400 ACETAMINOPH EN 10 MG/ML SOLN 1000. 0 MG INTRAV ENOUS ONE TIME ONLY Start: September 05, 2024 4:53:0 0 PM UTC End: September 05, 2024 4:53:0 0 PM UTC KADIE Banks MD INTERFAC ED on September 05, 2024 4:52:00 PM UTC Discont inued 421545 4211 9672 723 magnesium sulfate PREMIX 1 GM/100 ML SOLN 1.0 GM INTRAV ENOUS ONE TIME ONLY Start: September 05, 2024 4:53:0 0 PM UTC End: September 05, 2024 4:53:0 0 PM UTC KADIE Banks MD INTERFAC ED on September 05, 2024 4:52:00 PM UTC Discont inued 3373743 5211 9128 331 HYDROmorpho ne (DILAUDID) 1 MG/ML SOLN 1.0 MG IV PUSH ONE TIME ONLY Start: September 05, 2024 4:53:0 0 PM UTC End: September 05, 2024 4:53:0 0 PM UTC KADIE Banks MD INTERFAC ED on September 05, 2024 4:52:00 PM UTC Discont inued 700098 7628 3021 505 THROMBIN-JM I 5000 UNIT SOLR 5000. 0 UNT ONE TIME ONLY Start: September 05, 2024 7:04:0 0 PM UTC End: September 05, 2024 7:04:0 0 PM UTC KADIE Banks MD INTERFAC ED on September 05, 2024 7:02:00 PM UTC Discont inued 3138446 3551 7010 010 sodium chloride 0.9% FLUSH 10 ML SOLN 10.0 ML IV PUSH TWO TIMES A DAY (EACH SHIFT) Start: September 06, 2024 1:00:0 0 AM UTC End: September 06, 2024 4:33:5 3 PM UTC KADIE Banks MD [id number] on September 08, 2024 4:20:00 AM UTC Discont inued 0161117 8072 7010 010 sodium chloride 0.9% FLUSH 10 ML SOLN 10.0 ML IV PUSH NEEDED Start: September 05, 2024 9:37:0 0 PM UTC End: September 06, 2024 4:33:5 3 PM UTC KADIE Banks MD [id number] on September 08, 2024 4:20:00 AM UTC Discont inued 6901229 4424 8004 904 sodium chloride 0.9% 1000 ML SOLN 1000. 0 ML INTRAV ENOUS CONT 100.0 ML/HR Start: September 05, 2024 9:37:0 0 PM UTC End: September 06, 2024 4:33:5 3 PM UTC KADIE Banks MD [id number] on September 08, 2024 4:20:00 AM UTC Discont inued [id number] 8580 6051 262 PERCOCET 5-325 MG TABS 1.0 TAB BY MOUTH EVERY FOUR HOURS NEEDED Start: September 05, 2024 9:37:0 0 PM UTC End: September 07, 2024 7:40:0 0 PM UTC KADIE Banks MD [id number] on September 08, 2024 4:20:00 AM UTC Discont inued 8843025 0713 9189 301 morphine sulfate (PF) 10 MG/ML SOLN 5.0 MG IV PUSH EVERY TWO HOURS NEEDED Start: September 05, 2024 9:37:0 0 PM UTC End: September 06, 2024 4:33:5 3 PM UTC KADIE Banks MD [id number] on September 08, 2024 4:20:00 AM UTC Discont inued [id number] 4144 4536 661 diphenhydrA MINE (BENADRYL) 25 MG CAPS 25.0 MG BY MOUTH AT BEDTIME NEEDED Start: September 06, 2024 1:00:0 0 AM UTC End: September 06, 2024 4:33:5 3 PM UTC KADIE Banks MD [id number] on September 08, 2024 4:20:00 AM UTC Discont inued [id number] 9950 1037 621 diphenhydrA MINE (BENADRYL) 50 MG/ML SOLN 25.0 MG IV PUSH EVERY SIX HOURS NEEDED Start: September 05, 2024 9:37:0 0 PM UTC End: September 06, 2024 4:33:5 3 PM UTC KADIE Banks MD [id number] on September 08, 2024 4:20:00 AM UTC Discont inued 811962 6952 4018 511 promethazin e (PHENERGAN) 25 MG TABS 25.0 MG BY MOUTH EVERY SIX HOURS NEEDED Start: September 05, 2024 9:37:0 0 PM UTC End: September 06, 2024 4:33:5 3 PM UTC KADIE Banks MD [id number] on September 08, 2024 4:20:00 AM UTC Discont inued [id number] 8651 5623 105 ANCEF 2 G SOLR 2000. 0 MG INTRAV ENOUS EVERY EIGHT HOURS 200.0 ML/HR Start: September 06, 2024 2:00:0 0 AM UTC End: September 06, 2024 4:33:5 3 PM UTC KADIE Banks MD [id number] on September 07, 2024 4:20:00 AM UTC Discont inued [id number] 6738 8055 318 sodium chloride 0.9% MBP SOLN 100.0 ML INTRAV ENOUS EVERY EIGHT HOURS 200.0 ML/HR Start: September 06, 2024 2:00:0 0 AM UTC End: September 06, 2024 4:33:5 3 PM UTC KADIE Banks MD [id number] on September 07, 2024 4:20:00 AM UTC Discont inued 0751899 9420 3570 81 FENTANYL CITRATE PF 50 MCG/ML SOSY 25.0 MCG IV PUSH EVERY FIVE MINUTES NEEDED Start: September 05, 2024 10:23: 00 PM UTC End: September 06, 2024 12:00: 51 AM UTC SLIME Rocha CRNA [id number] on September 06, 2024 12:00:00 AM UTC Discont inued 6942440 7612 5000 906 Hydromorpho ne 0.5 MG/0.5ML SOLN 0.5 MG IV PUSH EVERY FIVE MINUTES NEEDED Start: September 05, 2024 10:23: 00 PM UTC End: September 06, 2024 12:00: 51 AM UTC SLIME oRcha CRNA [id number] on September 06, 2024 12:00:00 AM UTC Discont inued [id number] 6690 5613 005 ondansetron (ZOFRAN) INJ 4 MG/2 ML SOLN 4.0 MG IV PUSH EVERY 15 MINUTES NEEDED Start: September 05, 2024 10:23: 00 PM UTC End: September 06, 2024 12:00: 51 AM UTC SLIME Rocha CRNA [id number] on September 06, 2024 12:00:00 AM UTC Discont inued 395129 0846 7039 601 NORCO 5-325 MG TABS 1.0 TAB BY MOUTH NEEDED Start: September 05, 2024 10:23: 00 PM UTC End: September 05, 2024 11:31: 22 PM UTC SLIME Rocha CRNA [id number] on September 05, 2024 11:31:00 PM UTC Discont inued [id number] 4217 3016 501 DEXAMETHASO NE SODIUM PHOSPHATE 4.0 MG IV PUSH ONE TIME ONLY 0.167 MG/HR Start: September 05, 2024 7:30:0 0 PM UTC End: September 06, 2024 7:41:4 2 PM UTC TAWANNA TAYLOR MD [id number] on September 06, 2024 7:41:00 PM UTC Discont inued 7773643 3015 0016 505 LIDOCAINE HCL (PF) 2 % SOLN 5.0 ML INTRAV ENOUS ONE TIME ONLY 0.208 ML/HR Start: September 05, 2024 7:30:0 0 PM UTC End: September 06, 2024 7:41:4 3 PM UTC TAWANNA TAYLOR MD [id number] on September 06, 2024 7:41:00 PM UTC Discont inued [id number] 0898 5613 005 ONDANSETRON HCL 4 MG/2ML SOLN 4.0 MG IV PUSH ONE TIME ONLY 0.167 MG/HR Start: September 05, 2024 7:30:0 0 PM UTC End: September 06, 2024 7:41:4 3 PM UTC TAWANNA TAYLOR MD [id number] on September 06, 2024 7:41:00 PM UTC Discont inued [id number] 8923 5613 005 ONDANSETRON HCL 4 MG/2ML SOLN 4.0 MG IV PUSH ONE TIME ONLY 0.167 MG/HR Start: September 05, 2024 7:31:0 0 PM UTC End: September 06, 2024 7:41:4 3 PM UTC TAWANNA TAYLOR MD [id number] on September 06, 2024 7:41:00 PM UTC Discont inued [id number] 6705 3026 970 DIPRIVAN 200 MG/20ML EMUL 200.0 MG INTRAV ENOUS ONE TIME ONLY 8.333 MG/HR Start: September 05, 2024 7:31:0 0 PM UTC End: September 06, 2024 7:41:4 3 PM UTC TAWANNA TAYLOR MD [id number] on September 06, 2024 7:41:00 PM UT Discont inued [id number] 7126 6200 102 SUCCINYLCHO LINE CHLORIDE 200 M 20.0 MG INTRAV ENOUS ONE TIME ONLY 0.833 MG/HR Start: September 05, 2024 7:31:0 0 PM UTC End: September 06, 2024 7:41:4 3 PM UTC TAWANNA TAYLOR MD [id number] on September 06, 2024 7:41:00 PM UTC SOCIAL HISTORY SOCIAL HISTORY SNOMED-CT Social History Element Description Effective Dates Offered Cessation Comment UpdatedBy [id number] Historical Tobacco smoking status Never Smoked [id number] on March 23, 2024 7:57:19 PM UT SOCIAL HISTORY - Gender Sex: Male SOCIAL HISTORY - Status : status i nformation is not available Intention in Next Year: intention information is not available SOCIAL HISTORY - Sexual Behavior Sexual Orientation Gender Identity SNOMED-CT Description SNO MED -CT Description Activity Level No of Partners Partner Type UpdatedBy Information is not available VITAL SIGNS PATIENT VITAL SIGNS This section displays the mo st recent value for each vital sign as of September 15, 2024 2:37:08 PM UT Loinc Code Vital Sign Activity Date Result Updated By 8302-2 Body height August 31, 2024 5:46:20 PM UTC 182.88 cm (72.0 in) [id number] on August 31, 2024 5:46:[place] [address]-5 Body mass index (BMI ) [Ratio] August 31, 2024 5:46:20 PM UTC 34.385 kg/m2 [id number] on August 31, 2024 5:46:20 PM UT 3140-1 Body Surface Area Derived From Formula August 31, 2024 5:46:20 PM UTC 2.3563 m2 [id number] on August 31, 2024 5:46:20 PM UT 8310-5 Body temperature September 07, 2024 11:52:00 AM UTC 97.8 [degF] [id number] on September 07, 2024 11:53:15 [place] [address]-1 Body weight Measured August 31 5:46:20 PM UTC 115.0 kg (254.0 lb) [id number] on August 31, 2024 5:46:20 PM UTC 8462-4 Diastolic blood pressure September 07, 2024 11:52:00 AM UTC 62.0 mm[Hg] [id number] on September 07, 2024 11:53:15 AM UTC 8867-4 Heart rate September 07, 2024 11:52:00 AM UTC 96 /min [id number] on September 07, 2024 11:53:15 AM UTC 93145-1 Oxygen saturation in Arterial blood by Pulse oximetry September 07, 2024 11:52:00 AM UTC 91.0 % [id number] on September 07, 2024 11:53:15 AM UTC 9279-1 Respiratory rate September 07, 2024 11:52:00 AM UTC 20 /min [id number] on September 07, 2024 11:53:15 AM UTC 8480-6 Systolic blood pressure September 07, 2024 11:52:00 AM UTC 136.0 mm[Hg] [id number] on September 07, 2024 11:53:15 AM [place] PEDIATRIC GROWTH CHART - VITAL SIGNS This section displays Head C ircumference Percentile, Weight for Length Percentile and BMI Percentile Loinc Code Pediatric Measure Age (Months) Result Updat ed By No Pediatric Growth Chart Pe rcentile Information Available. PROCEDURES PATIENT PROCEDURES CODE SYSTEM DESCRIPTION STATUS PERFORMED DATE UPD ATED BY [id number] SNOMED-CT FUSION SPINE TRANSFORAMINAL INTERBODY LUMBAR completed September 05, 2024 4:00:00 AM [facility] [id number] on September 05, 2024 12:30:32 PM [facility] PROCEDURE NOTE Procedure Note information i s not available. HEALTH CONCERNS Problems Concern Status Health Concern problem infor mation not available. Smoking Status Status Years Used Consumed packs p er day Health Concern smoking histo ry information not available. Family History Concern Status Health Concern family histor y information not available. MEDICAL EQUIPMENT MEDICAL EQUIPMENT Device Status Quantity Dates Procedure Comments Updated By [facility] CALIBRATE RIA: Assigning Authority: FDA ACTIVE 1 Implanted: September 05, 2024 FUSION SPINE TRANSFORAMINAL INTERBODY LUMBAR [id number] on September 05, 2024 9:48:55 PM [facility] CALIBRATE RIA: Assigning Authority: FDA ACTIVE 1 Implanted: September 05, 2024 FUSION SPINE TRANSFORAMINAL INTERBODY LUMBAR [id number] on September 05, 2024 9:49:52 PM UTC [facility]EC CALIBRATE RIA: Assigning Authority: FDA ACTIVE 1 Implanted: September 05, 2024 FUSION SPINE TRANSFORAMINAL INTERBODY LUMBAR [id number] on September 05, 2024 9:50:39 PM UTC DBM PUTTY RIA: Assigning Authority: FDA ACTIVE 6 Implanted: September 05, 2024 FUSION SPINE TRANSFORAMINAL INTERBODY LUMBAR [id number] on September 06, 2024 12:37:58 PM UTC DEMINERALIZED FIBERS RIA: Assigning Authority: FDA ACTIVE 1 Implanted: September 05, 2024 FUSION SPINE TRANSFORAMINAL INTERBODY LUMBAR [id number] on September 05, 2024 9:54:28 PM UTC CANCELLOUS 1-4MM RIA: Assigning Authority: FDA ACTIVE 1 Implanted: September 05, 2024 FUSION SPINE TRANSFORAMINAL INTERBODY LUMBAR [id number] on September 06, 2024 12:39:14 PM UTC Screw RIA: Assigning Authority: FDA ACTIVE 3 Implanted: September 05, 2024 FUSION SPINE TRANSFORAMINAL INTERBODY LUMBAR [id number] on September 05, 2024 9:56:19 PM UTC Screw RIA: Assigning Authority: FDA ACTIVE 5 Implanted: September 05, 2024 FUSION SPINE TRANSFORAMINAL INTERBODY LUMBAR [id number] on September 06, 2024 12:37:20 PM UTC Screw RIA: Assigning Authority: FDA ACTIVE 8 Implanted: September 05, 2024 FUSION SPINE TRANSFORAMINAL INTERBODY LUMBAR [id number] on September 05, 2024 9:57:19 PM UTC Terrance fixation system RIA: Assigning Authority: FDA ACTIVE 1 Implanted: September 05, 2024 FUSION SPINE TRANSFORAMINAL INTERBODY LUMBAR 85MM TERRANCE [id number] on September 06, 2024 12:36:39 PM UTC Terrance fixation system RIA: Assigning Authority: FDA ACTIVE 1 Implanted: September 05, 2024 FUSION SPINE TRANSFORAMINAL INTERBODY LUMBAR 95MM TERRANCE [id number] on September 05, 2024 9:58:25 PM UTC ENCOUNTERS ENCOUNTER INFORMATION Reason for Visit TLIF Admission September 05, 2024 9:37:00 PM UTC [place] [id number] Discharge September 07, 2024 7:40:00 PM UTC DI SCHARGED TO HOME OR SELF CARE ENCOUNTER DIAGNOSES Note Title Discharge Summary Date Of Service September 07, 2024 3:50: 09 PM UTC Created By [id number] on September 07, 2024 3:50:09 PM UTC Signed By [id number] on September 08, 2024 9:17:11 PM UTC Code System Diagnosis Onset Date [id number] SNOMED-CT Pain management 09324357 SNOMED-CT Spinal stenosis of lumbar re gion ABSTRACT DIAGNOSES Code System Diagnosis Updated By M48.061 ICD10 SPINAL STENOSIS, LUMBAR REGION WITHOUT NEUROGENIC CLAUDICATION [id number] on September 15, 2024 2:34:40 PM UTC M48.061 ICD10 SPINAL STENOSIS, LUMBAR REGION WITHOUT NEUROGENIC CLAUDICATION [id number] on September 15, 2024 2:34:40 PM UTC M48.07 ICD10 SPINAL STENOSIS, LUMBOSACRAL REGION [id number] on September 15, 2024 2:34:40 PM UTC M71.38 ICD10 OTHER BURSAL CYST, OTHER SIT E [id number] on September 15, 2024 2:34:40 PM UTC G89.29 ICD10 OTHER CHRONIC PAIN [id number] o n September 15, 2024 2:34:40 PM UTC Z99.81 ICD10 DEPENDENCE ON SUPPLEMENTAL O XYGEN [id number] on September 15, 2024 2:34:40 PM UTC I10 ICD10 ESSENTIAL (PRIMARY) HYPERTEN MIGUEL [id number] on September 15, 2024 2:34:40 PM UTC E86.0 ICD10 DEHYDRATION [id number] on 2024 2:34:40 PM UTC CARE TEAM Care Audit Practice Intern Role CLAUDIA STACY Referring CLAUDIA STACY Primary Attending CLAUDIA STACY Admitting JONA PRADO Primary Care [facility] DISCHARGE INSTRUCTION DISCHARGE INSTRUCTION Encounter [id number] Admit Date September 05, 2024 9:37: 00 PM UTC Discharge Date September 07, 2024 7:40: 00 PM UT PATIENT EDUCATION SUMMARY Patient/Visit Information: Patient Name: JAS WOODRUFF Diag: Attending Caregiver: TAWANNA TAYLOR MD Discharge Instruction Sheets Provided: *Ben Patient Portal *Ben Suicidal Feelings: How to Help Yourself (LPNT) () CLRK - Stroke and BEFAST Education COVID-19 CDC-EN Laminectomy, Care After Opioid Pain Medicine Management Social Determinents of Health Information Spinal Stenosis Steps to Quit Smoking Patient Instructions: Additional Notes for *Ben Patient Portal Diet: Regular Activity: Activity as tolerated with brace Follow-up with Dr. Phan in 2 weeks Followup Appointments/Instructions: HISTORY AND PHYSICAL NOTE HISTORY AND PHYSICAL NOTE Note Title CLRK-History And Phy sical Date Of Service September 06, 2024 1:47: 36 AM UTC Created By [id number] on September 06, 2024 1:47:36 AM UTC Signed By [id number] on September 06, 2024 9:35:29 AM UTC Chief Complaint Back pain History of present illness 49-year-old male with history chronic back pain no other major medical problems patient admitted to the hospital for surgical procedure The patient back surgery done The patient seen and examined he is awake alert oriented pain is controlled not in distress denies any nausea vomiting no chest pain or shortness of breath Denies any fever or chills Past Medical History 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, UNPINCHED ALL MY NERVES IN MY BACK Chronic back pain Past Surgical History Cervical arthrodesis by anterior technique Procedure on back Dental surgical procedure Appendectomy Social History Denies any alcohol use Family History Parents Father Alive Mother Allergies No Known Allergies Home Medications Patient takes no home medications Review of Systems Narrative General no fever or chills Head no headache or dizziness Eyes no change of vision Ears no ear ache Nose no epistaxis Throat no sore throat Respiratory no shortness a breath or cough Cardiac no chest pain or palpitation GI no nausea or vomiting Urinary no hematuria Musculoskeletal back pain Neurological no focal numbness weakness Skin no new rashes Endocrine no heat or cold intolerance Physical Exam Vital Signs 1832 HR 66 RR 18 BP 88 (L) / 56 O2Sat 96 1827 HR 74 RR 16 BP 86 (L) / 54 O2Sat 96 1822 HR 62 RR 18 BP 68 (L) / 40 (L) O2Sat 97 Narrative Head atraumatic normocephalic Pupils round and reactive Eyes no conjunctiva injection or discharge Ears no discharge Nose no bleeding or discharge Mouth dry Neck is supple for range of motion Chest diminished entry bilaterally no wheezes crackles rhonchi Heart S1 and S2 here RRR Abdomen soft audible bowel sounds no tenderness no guarding Extremities no edema erythema tenderness Neurological patient alert awake move extremities Psychiatric no anxiety Skin no apparent rashes Endocrine no thyromegaly tenderness General patient in bed mild distress Lab Results 0645 Urinalysis COLOR Yellow APPEAR Clear GLUCOSE Negative BILIRUBI Negative KETONE Negative SP GRAV 1.030 (H) BLOOD Negative PH 6.0 PROTEIN Negative UROBIL 0.2 NITRITE Negative LEUK EST Negative UR MICRO Yes RBC None Seen WBC Rare EPITH Rare BACTERIA Trace SPERM Moderate 1307 Coagualtion PROTIME 11.1 INR 1.1 (L) PTT 30.0 1306 Hematology WBC 6.45 RBC 5.30 HGB 15.2 HCT 44.4 MCV 83.8 MCH 28.7 MCHC 34.2 RDW 12.6 PLT 203 MPV 10.8 (H) 1307 Blood Bank STATUS Completed ABO/RH E O Positve ABS M Negative COMPAT Compatible (Preliminary) UNIT TYP O+ (Preliminary) UNIT # [id number] (Preliminary) PRD CODE [id number] (Preliminary) PROD ID Red Blood Cells (Preliminary) VOLUME 350 (Preliminary) HISTCHK Completed STATUS Released (Preliminary) COMPAT Compatible (Preliminary) UNIT TYP O+ (Preliminary) UNIT # [id number] (Preliminary) PRD CODE [id number] (Preliminary) PROD ID Red Blood Cells (Preliminary) VOLUME 350 (Preliminary) STATUS Released (Preliminary) 130 Chemistry SODIUM 137 K 3.8 CHLORIDE 105 CO2 28 AGAP 4 (L) GLUCOSE 81 BUN 12 CREA 0.9 BUN/CREA 13 GFR 105 OSMO WILMAR 284 CALCIUM 9.3 Assessments Pain management Spinal stenosis of lumbar region Plan 1. Back pain The patient was history of chronic back pain admitted to hospital stay had surgical procedure done S start on pain control physical therapy in a.m. further recommendation as per ortho 2. Dehydration IV fluid encourage p.o. intake 3. Hypertension Labetalol as needed 4. GI prophylaxis Protonix 5. DVT prophylaxis compression Plan discussed with patient chart was reviewed expected length of stay more than 2 midnight expected patient will be discharged home when medically stable Time spent 40 minute Electronically signed by TAWANNA TAYLOR MD on 0535 DISCHARGE SUMMARY NOTE DISCHARGE SUMMARY NOTE Note Title Discharge Summary Date Of Service September 07, 2024 3:50: 09 PM UTC Created By [id number] on September 07, 2024 3:50:09 PM UTC Signed By [id number] on September 08, 2024 9:17:11 PM UTC Addendum 40 min Electronically signed by YECENIA Smith MD on 1719 Admit Date Admit Date: Discharge Date Discharge Date: 09/07/2024 Patient Care Team Admitting Provider: TAWANNA TAYLOR MD Attending Provider:TAWANNA TAYLOR MD Consulting Provider: Discharge Diagnosis Pain management Spinal stenosis of lumbar region History of Present Illness 49-year-old male with history chronic back pain no other major medical problems patient admitted to the hospital for surgical procedure The patient back surgery done The patient seen and examined he is awake alert oriented pain is controlled not in distress denies any nausea vomiting no chest pain or shortness of breath Denies any fever or chills Hospital Course Patient admitted to the medical-surgical unit. Re-evaluated there this morning. No new acute complaints. Pain controlled. Weaned off supplemental oxygen. No lower extremity numbness or tingling. No bowel or bladder incontinence. Denies any headaches. No fevers or chills. Postop day 1 he was re-evaluated by Orthopedics who recommended keeping the patient for an additional day. He had not received his brace and had not been up with physical therapy. He remained in the hospital overnight and I re-evaluated him in the medical-surgical unit this morning. He feels well. His Noel will be removed in he will be able to be discharged home with home health. I did go over discharge diagnosis treatment plan he expressed understanding and agreement. Vital Signs 0752 T 97.8 HR 96 RR 20 BP 136 / 62 O2Sat 91 Intake and Output previous current encounter day day cumulative Intake 1909 - 2194 Output 1110 90 1440 Balance 799 (-90) 754 Physical Exam Narrative General: Patient is a 49-year-old male who is alert and oriented x3 and in no acute distress. HEENT: Head atraumatic, normocephalic, pupils equal round react light, ear nose throat unremarkable. Neck: Supple, trachea midline, no JVD. Respiratory: Lungs clear to auscultation bilaterally. Cardiovascular: Regular rate and rhythm no murmur gallop or rub. Abdomen: Soft, nontender, bowel sounds present x4 quadrants. Musculoskeletal/extremities: No edema, no pulse deficits, normal strength and tone. Neurological: Cranial nerves grossly intact, no focal deficits. Psychiatric: Affect is appropriate. Skin: No lesions or rashes, no jaundice. Lab Results 0448 Chemistry SODIUM 137 K 4.0 CHLORIDE 104 CO2 31 (H) AGAP 2 (L) GLUCOSE 96 BUN 11 CREA 0.9 BUN/CREA 12 GFR 105 OSMO WILMAR 284 CALCIUM 7.9 (L) 1339 Chemistry K 4.3 0545 Hematology WBC 18.86 (H) RBC 3.68 (L) HGB 10.6 (L) HCT 31.8 (L) MCV 86.4 MCH 28.8 MCHC 33.3 RDW 13.0 PLT 197 MPV 11.3 (H) 0545 Chemistry SODIUM 137 K 5.2 (H) CHLORIDE 103 CO2 29 AGAP 5 (L) GLUCOSE 132 (H) BUN 16 CREA 1.0 BUN/CREA 16 GFR 92 OSMO WILMAR 288 CALCIUM 8.0 (L) 1424 Hematology HGB 14.1 HCT 40.7 0645 Urinalysis COLOR Yellow APPEAR Clear GLUCOSE Negative BILIRUBI Negative KETONE Negative SP GRAV 1.030 (H) BLOOD Negative PH 6.0 PROTEIN Negative UROBIL 0.2 NITRITE Negative LEUK EST Negative UR MICRO Yes RBC None Seen WBC Rare EPITH Rare BACTERIA Trace SPERM Moderate 0631 Molecular Diagnostics MRSASURV Negative Procedures and Surgeries Performed FUSION SPINE TRANSFORAMINAL INTERBODY LUMBAR L1-S1 tlif Performed by KADIE Banks MD Condition at Discharge Stable Discharge Medications PERCOCET 5-325 MG1 TAB BY MOUTH EVERY FOUR HOURS NEEDED for PAIN Discharge Instructions postop orthopedic discharge instructions per Orthopedics. Regular diet. Activity with brace. Follow-Up With Dr. Phan in 2 weeks. Time spent with Patient 40 minutes spent evaluating the patient with Dr. Goel, reviewing his chart, formulating discharge plan, discharging the patient from the hospital. Created by JIMBO Stratton APRN on 1150 Electronically signed by YECENIA Smith MD on 1717 Note Title Discharge Summary Date Of Service September 06, 2024 4:36: 59 PM UTC Created By [id number] on September 06, 2024 4:36:59 PM UTC Signed By [id number] on September 06, 2024 6:50:26 PM UTC Addendum 40 min Electronically signed by YECENIA Smith MD on 1450 Admit Date Admit Date: Discharge Date Discharge Date: Patient Care Team Admitting Provider: TAWANNA TAYLOR MD Attending Provider:TAWANNA TAYLOR MD Consulting Provider: Discharge Diagnosis Pain management Spinal stenosis of lumbar region History of Present Illness 49-year-old male with history chronic back pain no other major medical problems patient admitted to the hospital for surgical procedure The patient back surgery done The patient seen and examined he is awake alert oriented pain is controlled not in distress denies any nausea vomiting no chest pain or shortness of breath Denies any fever or chills Hospital Course Patient admitted to the medical-surgical unit. Re-evaluated there this morning. No new acute complaints. Pain controlled. His weaning his brace we can worked physical therapy. Weaned off supplemental oxygen. No lower extremity numbness or tingling. No bowel or bladder incontinence. Denies any headaches. No fevers or chills. Once he receives his base worse physical therapy patient stable from medical standpoint for discharge home with okay with Orthopedics. I did go over discharge diagnosis treatment plan he expressed understanding and agreement. Vital Signs 0750 T 97.9 HR 104 (H) RR 20 BP 135 / 68 O2Sat 97 Intake and Output previous current encounter day day cumulative Intake 285 239 524 Output 240 - 240 Balance 45 239 284 Physical Exam Narrative General: Patient is a 49-year-old male who is alert and oriented x3 and in no acute distress. HEENT: Head atraumatic, normocephalic, pupils equal round react light, ear nose throat unremarkable. Neck: Supple, trachea midline, no JVD. Respiratory: Lungs clear to auscultation bilaterally. Cardiovascular: Regular rate and rhythm no murmur gallop or rub. Abdomen: Soft, nontender, bowel sounds present x4 quadrants. Musculoskeletal/extremities: No edema, no pulse deficits, normal strength and tone. Neurological: Cranial nerves grossly intact, no focal deficits. Psychiatric: Affect is appropriate. Skin: No lesions or rashes, no jaundice. Lab Results 0545 Hematology WBC 18.86 (H) RBC 3.68 (L) HGB 10.6 (L) HCT 31.8 (L) MCV 86.4 MCH 28.8 MCHC 33.3 RDW 13.0 PLT 197 MPV 11.3 (H) 0545 Chemistry SODIUM 137 K 5.2 (H) CHLORIDE 103 CO2 29 AGAP 5 (L) GLUCOSE 132 (H) BUN 16 CREA 1.0 BUN/CREA 16 GFR 92 OSMO WILMAR 288 CALCIUM 8.0 (L) 1424 Hematology HGB 14.1 HCT 40.7 0645 Urinalysis COLOR Yellow APPEAR Clear GLUCOSE Negative BILIRUBI Negative KETONE Negative SP GRAV 1.030 (H) BLOOD Negative PH 6.0 PROTEIN Negative UROBIL 0.2 NITRITE Negative LEUK EST Negative UR MICRO Yes RBC None Seen WBC Rare EPITH Rare BACTERIA Trace SPERM Moderate Procedures and Surgeries Performed FUSION SPINE TRANSFORAMINAL INTERBODY LUMBAR L1-S1 tlif Performed by KADIE Banks MD Condition at Discharge Stable Discharge Medications PERCOCET 5-325 MG1 TAB BY MOUTH EVERY FOUR HOURS NEEDED for PAIN Discharge Instructions Postop orthopedic discharge instructions per Orthopedics. Brace when up. Regular diet. Do not submerge incision in water. No aspirin or ibuprofen. Follow-Up With Dr. Phan in 2 weeks. Time spent with Patient 40 minutes spent evaluating the patient with Dr. Goel, reviewing the chart, formulating discharge plan, discharging the patient form the hospital. Created by JIMBO Stratton APRN on 1236 Electronically signed by YECENIA Smith MD on 0610 PROGRESS NOTE PROGRESS NOTE Note Title Progress Note Date Of Service September 06, 2024 7:06: 18 PM UTC Created By [id number] on September 06, 2024 7:06:18 PM UTC Signed By [id number] on September 07, 2024 7:33:55 PM UTC Addendum PLAN 1. PT OT with brace. 2. Continue morphine 5 mg IV push q.2 hours as needed for severe pain. 3. Continue Percocet 5 mg 1 tablet p.o. q.4 hours as needed for moderate pain. 4. Saline lock IV fluids. 5. Continue all other dedicated measures. 6. BMP in the morning. Electronically signed by YECENIA Smith MD on 7946 Chief Complaint 49-year-old male with history chronic back pain no other major medical problems patient admitted to the hospital for surgical procedure The patient back surgery done The patient seen and examined he is awake alert oriented pain is controlled not in distress denies any nausea vomiting no chest pain or shortness of breath Denies any fever or chills History of Present Illness Patient admitted to the medical-surgical unit postprocedure. I re-evaluated him there this morning. He feels well. No new acute complaints. No numbness or tingling of the lower extremities no saddle anesthesia no bowel or bladder incontinence no headaches. He has not short of breath. He is on 2 L oxygen. No chest pain or palpitations. He is awaiting this brace so we can get work with physical therapy. He was evaluated by Dr. Phan orthopedics who recommended that patient stay in the hospital another day. I discussed with the patient is admission diagnosis treatment plan moving forward expresses understanding and agreement. Vital Signs 0750 T 97.9 HR 104 (H) RR 20 BP 135 / 68 O2Sat 97 Intake and Output previous current encounter day day cumulative Intake 956 727 9498 Output 240 400 640 Balance 45 319 364 Physical Exam Narrative General: Patient is a 49-year-old male who is alert and oriented x3 and in no acute distress. HEENT: Head atraumatic, normocephalic, pupils equal round react light, ear nose throat unremarkable. Neck: Supple, trachea midline, no JVD. Respiratory: Lungs clear to auscultation bilaterally. Cardiovascular: Regular rate and rhythm no murmur gallop or rub. Abdomen: Soft, nontender, bowel sounds present x4 quadrants. Musculoskeletal/extremities: No edema, no pulse deficits, normal strength and tone. Neurological: Cranial nerves grossly intact, no focal deficits. Psychiatric: Affect is appropriate. Skin: No lesions or rashes, no jaundice. Lab Results 1339 Chemistry K 4.3 0545 Hematology WBC 18.86 (H) RBC 3.68 (L) HGB 10.6 (L) HCT 31.8 (L) MCV 86.4 MCH 28.8 MCHC 33.3 RDW 13.0 PLT 197 MPV 11.3 (H) 0545 Chemistry SODIUM 137 K 5.2 (H) CHLORIDE 103 CO2 29 AGAP 5 (L) GLUCOSE 132 (H) BUN 16 CREA 1.0 BUN/CREA 16 GFR 92 OSMO WILMAR 288 CALCIUM 8.0 (L) Problem List Pain management Spinal stenosis of lumbar region Active Medications ANCEF 2 G 2000 MG IV ONE-UNSCHD 3 ML/MIN Cefazolin 2gram in 15ml SWFI Total Volume=15ml Administer as IV Push over 5 minutes at 3ml/minutes BUD 24hrs in room temp,10days fridge diphenhydrAMINE (BENADRYL) 50 MG/ML 25 MG IV PUSH Q6HPRN for ITCHING/RASH/REDNESS diphenhydrAMINE (BENADRYL) 25 MG PO BEDTIMEPRN for SLEEP morphine sulfate (PF) 10 MG/ML 5 MG IV PUSH Q2HPRN for SEVERE PAIN: 7-10 PAIN SCALE PERCOCET 5-325 MG 1 TAB PO Q4HPRN for MODERATE PAIN: 4-6 PAIN SCALE promethazine (PHENERGAN) 25 MG PO Q6HPRN for NAUSEA/VOMITING sodium chloride 0.9% 1000 ML IV Continuous 100 ML/HR sodium chloride 0.9% FLUSH 10 ML IV PUSH PRN for FLUSH sodium chloride 0.9% FLUSH 10 ML IV PUSH QSHIFT Time spent with Patient 35 minutes spent evaluating the patient with Dr. Goel, reviewing the chart, formulating and implementing treatment plan. Created by JIMBO Stratton [employer]TING [employer] FISHING GUIDE on 1506 Electronically signed by YECENIA Smith MD on 1533 CARE TEAM CARE field instructor Role on Team Status Start Date End Date Update d By TAWANNA TAYLOR MD Referring normal September 06, 2024 4:03:31 AM [place] September 05, 2024 4:00:00 AM UTC [id number] on September 06, 2024 4:03:31 AM UTC TAWANNA TAYLOR MD Attending normal September 06, 2024 4:03:31 AM UTC September 05, 2024 4:00:00 AM UTC [id number] on September 06, 2024 4:03:31 AM UTC TAWANNA TAYLOR MD Admitting normal September 06, 2024 4:03:31 AM UTC September 05, 2024 4:00:00 AM UTC [id number] on September 06, 2024 4:03:31 AM UTC SLIME Rocha CRNA Healthcare professional normal September 05, 2024 11:30:00 AM UT September 07, 2024 7:40:00 PM UTC [id number] on September 06, 2024 4:03:31 AM UTC KADIE Banks MD Surgeon normal September 05, 2024 11:30:00 AM UTC September 07, 2024 7:40:00 PM UTC [id number] on September 06, 2024 4:03:31 AM UTC EVE ZAMBRANO PCP normal September 05, 2024 10:22:20 AM UTC September 06, 2024 12:03:26 AM UTC [id number] on September 06, 2024 4:03:[address] JOYCE ROYAL [place] PCP normal September 01, 2024 1:44:12 PM UTC September 05, 2024 10:22:20 AM UTC [id number] on September 06, 2024 4:03:31 AM UTC KADIE Banks MD Referring normal September 01, 2024 1:44:12 PM UTC September 06, 2024 12:00:35 AM UT [id number] on September 06, 2024 4:03:31 AM UT KADIE Banks MD Attending normal September 01, 2024 1:44:12 PM UT September 06, 2024 12:00:35 AM UT [id number] on September 06, 2024 4:03:31 AM [facility] KADIE Banks MD Admitting normal September 01, 2024 1:44:12 PM UTC September 06, 2024 12:00:35 AM UT [id number] on September 06, 2024 4:03:31 AM [facility]
== END 2024-09-23 11:03 | disposition home or self-care (01) ==
LOC: ER 16:41 → 2ND 16:48
PROVIDERS: Physician Assistant; Admitting Provider Internal Medicine Adolescent Medicine; Emergency Provider Emergency Medicine; PCP Family Medicine; Visit Provider Family Medicine
DX: I26.94 Multiple subsegmental thrombotic pulmonary emboli without acute cor pulmonale (principal); J90 Pleural effusion, not elsewhere classified; E78.5 Hyperlipidemia, unspecified; K76.9 Liver disease, unspecified; D64.9 Anemia, unspecified; R73.9 Hyperglycemia, unspecified; R03.0 Elevated blood-pressure reading, without diagnosis of hypertension; M41.9 Scoliosis, unspecified; Z98.890 Other specified postprocedural states; Z90.49 Acquired absence of other specified parts of digestive tract; Z87.442 Personal history of urinary calculi
CPT/HCPCS: 36415; 71275; 80053; 83036; 83880; 84484; 85025; 85610; 86803; 87389; 87636; 93005; 99291; G0378; J1650; Q9967

== ENCOUNTER 2024-09-28 10:33 | Outpatient (CLI) | payer OTHER, SELFPAY ==
--- NOTE | 2024-09-28 | CA_ITS ---
FINAL REPORT CLINICAL HISTORY: acute PE's, recent spinal fusion surgery x 3 weeks ago. FINDINGS: Multiple transverse and longitudinal scans were performed of the femoral popliteal deep venous system, with augmentation and compression maneuvers. Normal phasic flow was noted in the visualized deep venous system. No intraluminal increased echogenicity is noted to suggest thrombus. There is normal compression and augmentation of the venous structures. No abnormal venous collaterals are seen. IMPRESSION: No evidence of deep venous thrombosis of the bilateral lower extremities. Reviewed, Interpreted and Dictated by Gigi Jay MD Transcribed by Clemencia Roberts Authenticated and [facility]
--- OUTSIDE RECORDS SUMMARY | 2024-09-28 23:12 | XMS_ITS | Continuity of Care Document ---
Author Organization [facility] Phone Care Team Providers Care Analysis Engineer Name Role Phone SHAREE ENGLE Unavailable SHAREE ENGLE Admitting JONA PRADO Primary Care SHAREE ENGLE Primary Attending ALLERGIES AND ADVERSE REACTIONS ALLERGIES AND ADVERSE REACTIONS Code System Allergy Substance Adverse Reaction Date Reaction (Severity) Comment Status Reported By Updated By No Known Allergies [email or web address] on September 05, 2024 9:36:33 PM [facility] [[email or web address]] FAMILY HISTORY RELATION: Father Status: LIVING SNOMED-CT Diagnosis Age At Onset Information not available RELATION: Mother Status: Cause of : Unknown Age at : Unknown SNOMED-CT Diagnosis Age At Onset Information not available RESULTS Patient: KACY AMRK Date of : [birth year] 4 LABORATORY RESULTS ORDER 200: BASIC METABOLIC P LOIS (LOINC: 32028-3) ORDER DATE: August 30, 2024 5:07:00 PM UT Specimen Source: Serum Specimen Type: Serum specime n PERFORMING LAB: [address] [id number] Result Comment: Final Result Date: August 30, [...] 30, 2024 6:31:00 PM UTC (TECH: RKM) 72570-5 Anion gap in Serum or Plasma L [...] 30, 2024 6:31:00 PM UTC (TECH: RKM) 00656-8 Glomerular filtration rate/1.73 sq M.predicted N 105 mL/min >60 August 30, 2024 6:31:00 PM UTC (TECH: RKM) 18318-2 Osmolality of Serum or Plasma by calculation N 284 mOsmol/Kg 275 mOsmol/Kg - 301 mOsmol/Kg August 30, 2024 6:31:00 PM UTC (TECH: RKM) 06478-8 Calcium [Mass/volume] in Serum or Plasma N 9.3 mg/dL 8.5 mg/dL - 10.8 mg/dL August 30, 2024 6:31:00 PM UTC (TECH: RKM) ORDER 300: CBC NO DIFF HEMOG SAMUEL (LOINC: 40101-0) ORDER DATE: August 30, 2024 5:07:00 PM UTC Specimen Source: Whole Blood Specimen Type: Whole blood s ample PERFORMING LAB: [address] [id number] Result Comment: Final Result Date: August 30, [...] 30, 2024 5:38:00 PM UTC (TECH: EAB) 95608-3 Platelet mean volume [Entitic volume] in Blood by Automated count H 10.8 fL 6.8 fL - 10.2 fL August 30, 2024 5:38:00 PM UTC (TECH: EAB) ORDER 400: PT WITH INR AND P TT (LOINC: 5964-2) ORDER DATE: August 30, 2024 5:07:00 PM UTC Specimen Source: Plasma Specimen Type: Plasma specim en PERFORMING LAB: [address] [id number] Result Comment: Final Result Date: August 30, 2024 5:51:00 PM UTC (TECH: A/V) LOINC TEST FLAG [place] [address]-7 INR in Platelet poor plasma or blood by Coagulation assay N 11.1 seconds 9.0 seconds - 12.0 seconds August 30, 2024 5:51:00 PM UTC (TECH: A/V) 20443-3 INR in Platelet poor plasma by Coagulation assay --post heparin adsorption L 1.1 2.0 - 3.0 August 30, 2024 5:51:00 PM UTC (TECH: A/V) 72035-9 Activated partial thromboplastin time (aPTT) in Platelet poor plasma by Coagulation assay N 30.0 seconds 20 seconds - 34 seconds August 30, 2024 5:51:00 PM UTC (TECH: A/V) ORDER 500: TYPE/SCREEN (LOIN C: 97041-5) ORDER DATE: August 30, 2024 5:07:00 PM UTC Specimen Source: Whole Blood Specimen Type: Whole blood s ample PERFORMING LAB: [address] [id number] Result Comment: Final Result Date: August 30, 2024 5:07:00 PM UTC (TECH: HL7) LOINC TEST FLAG [place] [address]-9 Clinical information N Completed August 30, 2024 5:07:00 PM UTC (TECH: balaji) 882-1 ABO and Rh group [Type] in Blood N O POSITVE August 30, 2024 5:07:00 PM UTC (TECH: HL7) 890-4 Blood group antibody screen [Presence] in Serum or Plasma N NEGATIVE August 30, 2024 5:07:00 PM UTC (TECH: HL7) 16318-9 History of Procedure N Completed August 30, 2024 5:07:00 PM UTC (TECH: HL7) ORDER 600: PRBC UNIT (LOINC: 30189-9) ORDER DATE: August 30, 2024 5:07:00 PM UTC Specimen Source: Whole Blood Specimen Type: Whole blood s ample PERFORMING LAB: [address] [id number] Result Comment: Final Result Date: September 28, 2024 10:04:00 PM UTC (TECH: EAB) LOINC TEST FLAG RESULT [place] [address]-5 Clinical information N NOT GIVEN September 28, 2024 10:04:00 PM UTC (TECH: EAB) 1250-0 Major crossmatch [Interpretation] N COMPATIBLE COMPATIBLE September 28, 2024 10:04:00 PM UTC (TECH: EAB) 24584-2 Rh [Type] in Blood from Blood product unit N O+ September 28, 2024 10:04:00 PM UTC (TECH: EAB) 87576-4 Lot number of Blood product unit N [id number] September 28, 2024 10:04:00 PM UTC (TECH: EAB) 70379-8 Product version code Software N [id number] September 28, 2024 10:04:00 PM UTC (TECH: EAB) 934-0 Blood product unit ID [#] N Red Blood Cells September 28, 2024 10:04:00 PM UTC (TECH: EAB) 3157-5 Volume of Blood N 350 Apri l 2024 10:04:00 PM UTC (TECH: EAB) ORDER 700: PRBC UNIT (LOINC: 99606-4) ORDER DATE: August 30, 2024 5:07:00 PM UTC Specimen Source: Whole Blood Specimen Type: Whole blood s ample PERFORMING LAB: [address] [id number] Result Comment: Final Result Date: September 28, 2024 10:04:00 PM UTC (TECH: EAB) LOINC TEST FLAG RESULT [place] [address]-2 Clinical information N NOT GIVEN September 28, 2024 10:04:00 PM UTC (TECH: EAB) 1250-0 Major crossmatch [Interpretation] N COMPATIBLE COMPATIBLE September 28, 2024 10:04:00 PM UTC (TECH: EAB) 69748-6 Rh [Type] in Blood from Blood product unit N O+ September 28, 2024 10:04:00 PM UTC (TECH: EAB) 42514-6 Lot number of Blood product unit N [id number] September 28, 2024 10:04:00 PM UTC (TECH: EAB) 95661-8 Product version code Software N [id number] September 28, 2024 10:04:00 PM UTC (TECH: EAB) 934-0 Blood product unit I D [#] N Red Blood Cells September 28, 2024 10:04:00 PM UTC (TECH: EAB) 3157-5 Volume of Blood N 350 Apri l 2024 10:04:00 PM UTC (TECH: EAB) LABORATORY NARRATIVE RESULTS Information is not available [...] Description Effective Dates Offered Cessation Comment UpdatedBy [id number] Historical Tobacco smoking status Never Smoked [id number] on March 23, 2024 7:57:19 PM [facility] [[email or web address]] SOCIAL HISTORY - Gender Sex: Male SOCIAL [...] Status Quantity Dates Procedure Comments Updated By [facility] CALIBRATE RIA: Assigning Authority: FDA ACTIVE 1 Implanted: September 05, 2024 FUSION SPINE TRANSFORAMINAL INTERBODY LUMBAR [id number] on September 05, 2024 9:48:55 PM UTC ATEC CALIBRATE RIA: Assigning Authority: FDA ACTIVE 1 Implanted: September 05, 2024 FUSION SPINE TRANSFORAMINAL INTERBODY LUMBAR [id number] on September 05, 2024 9:49:52 PM UTC ATEC CALIBRATE RIA: Assigning Authority: FDA ACTIVE 1 Implanted: September 05, 2024 FUSION SPINE TRANSFORAMINAL INTERBODY LUMBAR [id number] on September 05, 2024 9:50:39 PM UTC DBM PUTTY RIA: Assigning Authority: FDA ACTIVE 6 Implanted: September 05, 2024 FUSION SPINE TRANSFORAMINAL INTERBODY LUMBAR [id number] on September 06, 2024 12:37:58 PM UTC DEMINERALIZED FIBERS RIA: Assigning Authority: FDA ACTIVE 1 Implanted: September 05, 2024 FUSION SPINE TRANSFORAMINAL INTERBODY LUMBAR [id number] on September 05, 2024 9:54:28 PM UTC CANCELLOUS 1-4MM RIA: Assigning Authority: FDA ACTIVE 1 Implanted: September 05, 2024 FUSION SPINE TRANSFORAMINAL INTERBODY LUMBAR [id number] on September 06, 2024 12:39:14 PM UTC Screw RIA: Assigning Authority: FDA ACTIVE 3 Implanted: September 05, 2024 FUSION SPINE TRANSFORAMINAL INTERBODY LUMBAR [id number] on September 05, 2024 9:56:19 PM UTC Screw RIA: Assigning Authority: FDA ACTIVE 5 Implanted: September 05, 2024 FUSION SPINE TRANSFORAMINAL INTERBODY LUMBAR [id number] on September 06, 2024 12:37:20 PM UTC Screw RIA: Assigning Authority: FDA ACTIVE 8 Implanted: September 05, 2024 FUSION SPINE TRANSFORAMINAL INTERBODY LUMBAR [id number] on September 05, 2024 9:57:19 PM UTC Terrance fixation system RIA: Assigning Authority: FDA ACTIVE 1 Implanted: September 05, 2024 FUSION SPINE TRANSFORAMINAL INTERBODY LUMBAR 85MM TERRANCE [id number] on September 06, 2024 12:36:39 PM UTC Terrance fixation system RIA: Assigning Authority: FDA ACTIVE 1 Implanted: September 05, 2024 FUSION SPINE TRANSFORAMINAL INTERBODY LUMBAR 95MM TERRANCE [id number] on September 05, 2024 9:58:25 PM UTC ENCOUNTERS ENCOUNTER INFORMATION Reason for Visit LAB Admission August 30, 2024 4:57:00 PM UTC CL [address] [id number] Discharge August 31, 2024 12:57:00 AM UTC D ISCHARGED TO HOME OR SELF CARE ENCOUNTER DIAGNOSES Notes information is not boby ilable. Code System Diagnosis Onset Date Diagnosis information is not available. ABSTRACT DIAGNOSES Code System Diagnosis Updated By Z01.818 ICD10 ENCOUNTER FOR OT HER PREPROCEDURAL EXAMINATION [id number] on September 04, 2024 7:18:31 AM UTC Z01.818 ICD10 ENCOUNTER FOR OT HER PREPROCEDURAL EXAMINATION [id number] on September 04, 2024 7:18:31 AM UTC CARE TEAM Care Analysis Engineer Role SHAREE ENGLE Referring SHAREE ENGLE Admitting JONA PRADO Primary Care SHAREE ENGLE Primary Attending CARE TEAM CARE rn homecare Role on Team Status Start Date End Date Update d By EVE ZAMBRANO PCP normal August 30, 2024 4:58:44 PM UTC August 31, 2024 12:57:00 AM UTC [id number] on August 30, 2024 4:58:44 PM UTC KADIE Banks MD Referring normal August 30 4:58:44 PM UTC August 31, 2024 12:57:00 AM UTC [id number] on August 30, 2024 4:58:44 PM UTC KADIE Banks MD Attending normal August 30 4:58:44 PM UTC August 31, 2024 12:57:00 AM UTC [id number] on August 30, 2024 4:58:44 PM UTC KADIE Banks MD Admitting normal August 30 4:58:44 PM UTC August 31, 2024 12:57:00 AM UTC [id number] on August 30, 2024 4:58:44 PM UTC
== END 2024-09-28 23:59 | disposition home or self-care (01) ==
LOC: RT 10:34
PROVIDERS: PCP Family Medicine; Visit Provider Physician Assistant
DX: I26.99 Other pulmonary embolism without acute cor pulmonale (principal)
CPT/HCPCS: 93970

== ENCOUNTER 2024-12-15 08:58 | Outpatient (CLI) | payer OTHER, SELFPAY ==
--- OUTSIDE RECORDS SUMMARY | 2024-09-28 05:15 | XMS_ITS ---
[facility] Address [address] [facility] [address] [place] [phone] Care Team Providers Care Appliance Line Assembler Name Role Phone Safia Bradshaw Primary Care Provider [phone] Poncho Kvng Unavailable [phone] Caroline Brooke Unavailable [phone] Allergies Allergen (clinical drug ingredient) Drug/Non Drug Allergy documented on EMR Reaction Allergy Type Onset Date Status atorvastatin Lipitor stomach upset Drug Allergy Active Results Component Value Reference Range Notes Venous Doppler: Bilateral lo wer extremities Reviewed date:10/12/2024 03:50:43 PM Interpretation:Negative Performing Lab: Notes/Report: Negative REASON FOR VISIT [facility] D/C Follow Up Medications Medication SIG [...] Status Risk Notes Problem Lesion of liver (867442058) Liver lesion (K76.9) Active confirmed Problem Body mass index 30+ - obesity (346856205) BMI 30.0-30.9,ad ult (Z68.30) Active confirmed Vital Signs Blood pressure systolic 114 mm Hg 09/29/19 25 Blood pressure diastolic 80 mm Hg 025 Heart Rate 101 /min 09/28/2024 Height 74 in 09/28/2024 Weight 240.6 lbs 09/28/2024 BMI 30.89 kg/m2 09/28/2024 Encounters Encounter Location Date Provider Diagnosis [facility] [address] [place] [phone] 09/28/2024 Caroline Brooke Acute pulmonary embolism, unspecified [...] Yajaira ron, Reason: Provider Name:Caroline Reyes y, 03/09/2025 09:15:00 AM, [address], [address], [place], [phone], Progress Notes * JAS STRAUSSDOB:1975 ( 49 yo M)Acc No.[id number]:09/28/2024 Progress Notes Patient: JAS AYALA Provider: JON Reyez :1975 A ge:49 Y S ex:Male Date:09/28/2024 Address:[place], [id number] Pcp:Safia Bradshaw Subjective: * Chief Complaints: * [address] [facility] D/C Follow Up. * HPI: C ardiology: The pt is here for a follow up from [facility] discharge due to Pulmonary Emboli. Pt [...] Single. New since last visit: none. Occupation: [employer]. Past smoking status: no. Occup. exposure: none. [...] L iver lesion - K76.9 ?3. B [place] 30.0-30.9,adult - Z68.30 Plan: * Treatment: Notes: [...] * Images: Billing Information: * Visit Code: 21804 Office Visit, Est Pt., Level 4. * Procedure Codes: 39590 PULSE OX. 3074F SYST BP LT 130 MM HG. 3079F DIAST BP 80-89 MM HG. * Electronic signature of JON Doherty on 12/15/2024 at 09:00 AM EDT Sign off status: Pending * Provider: JON Reyez Date: 0 09/28/2024 Generated for Asad napoles/Gonzalo/Eric on: 0 12/15/2024 09:00 AM EDT History and Physical Notes * HPI (History [...]
--- OUTSIDE RECORDS SUMMARY | 2024-10-05 11:15 | XMS_ITS ---
Author Organization [facility] Address [address] [facility] [address] [place] [id number] Care Team Providers Care Life Skills Coordinator Volunteer Name Role Phone Safia Bradshaw Primary Care Provider [phone] Poncho Kvng Unavailable [phone] Nahunricky Caroline Unavailable [phone] Allergies Allergen (clinical drug ingredient) Drug/Non Drug [...] Interpretation:174 Performing Lab: Notes/Report: Test performed by [facility] , [address], [place] [address] Sandip Velarde MD, Machine Operator Replanter CLIA: [id number] Vitamin B12 004 979-1815 pg/mL P-Comprehensive Metabolic Pa juan miguel (CMP) Reviewed date:10/06/2024 08:45:41 AM Interpretation:BUN 5 Performing Lab: Notes/Report: Test performed by [facility], [address] , [address], [place] [address] Sandip Velarde MD, Machine Operator Replanter CLIA: [id number] Sodium 139 135-145 mmol/L Potassium 4.2 3.5-5.3 [...] Interpretation:Normal Performing Lab: Notes/Report: Test performed by [facility] [address] , [address], [place] [address] Sandip Velarde MD, Machine Operator Replanter CLIA: [id number] Folate 7.36 >4.59 ng/mL P-Ferritin Reviewed date:10/06/2024 08:45:42 AM Interpretation:Normal Performing Lab: Notes/Report: Test performed by [facility] [address] , [address], [place] [address] Sandip Velarde MD, Machine Operator Replanter CLIA: [id number] Ferritin 99.3 30.0-400.0 ng/mL P-Iron Reviewed date:10/06/2024 08:45:42 AM Interpretation:24 Performing Lab: Notes/Report: Test performed by [facility] [address] , [address], [place] [address] Sandip Velarde MD, Machine Operator Replanter CLIA: [id number] Iron 24 59-158 ug/dL REASON FOR VISIT [...] Status W/U Status Risk Notes Problem Anemia (487949093) Anemia, unspecified type (D64.9) Active confirmed Vital Signs Blood pressure systolic 130 mm Hg 10/06/19 25 Blood pressure diastolic 84 mm Hg 025 Heart Rate 98 /min 10/05/2024 Height 74 in 10/05/2024 Weight 240 lbs 10/05/2024 BMI 30.81 kg/m2 10/05/2024 Encounters Encounter Location Date Provider Diagnosis [facility] [address] [place] [phone] 10/05/2024 Caroline Brooke Acute pulmonary embolism, unspecified [...] rt test results, Reason: Provider Name:Caroline hanson, 03/09/2025 09:15:00 AM, [address], [address], [place], [id number], Progress Notes * NESHA STRAUSS:1975 ( 49 yo M)Acc No.[id number]:10/05/2024 Progress Notes Patient: JAS AYALA Provider: JON Reyez :1975 A ge:49 Y S ex:Male Date:10/05/2024 Address:[address] [place], [place] [address], [id number] Pcp:Safia Bradshaw Subjective: * Chief Complaints: * [...] Single. New since last visit: none. Occupation: [employer]. Past smoking status: no. Occup. exposure: none. [...] 400 * Nikki Calvert 10/05/2024 4:08:04 PM >EdwardoCaroline Clinton 10/05/2024 4:30:08 PM > * Procedure Codes: 8 5025 CBC WITH AUTO DIFF, 3075F SYST BP GE 130 - 139MM HG, 3079F DIAST BP 80-89 MM HG * Follow Up: v ia phone to report test results * Images: Billing Information: * Visit Code: 98332 Office Visit, Est Pt., Level 4. * Procedure Codes: 83341 CBC WITH AUTO DIFF. 3075F SYST BP GE 130 - 139MM HG. 3079F DIAST BP 80-89 MM HG. * Electronic signature of JON Doherty on 12/15/2024 at 09:01 AM EDT Sign off status: Pending * Provider: JON Reyez Date: 0 10/05/2024 Generated for Printi ng/Fabalbirg/eTransmitting on: 0 12/15/2024 09:01 AM EDT History and Physical Notes * [...]
--- OUTSIDE RECORDS SUMMARY | 2024-12-06 05:00 | XMS_ITS ---
Author Organization [facility] Address [address] [facility] [address] [place] [id number] Care Team Providers Care Social Services Specialist Name Role Phone Safia Bradshaw Primary Care Provider PonchoKvng Unavailable [phone] NahunCaroline garcía Unavailable [phone] Allergies Allergen (clinical drug ingredient) Drug/Non Drug [...] Interpretation:Normal Performing Lab: Notes/Report: Test performed by [facility] , [address], [place] [address] Sandip Velarde MD, Divorce Attorney CLIA: [id number] Vitamin B12 054 189-7778 pg/mL P-Comprehensive Metabolic Pa juan miguel (CMP) Reviewed date:12/07/2024 03:23:39 PM Interpretation:Normal Performing Lab: Notes/Report: Test performed by [facility] [address] [place] [address] , [address], [place] [address] Sandip Velarde MD, Divorce Attorney CLIA: [id number] Sodium 139 135-145 mmol/L Potassium 4.1 3.5-5.3 [...] Interpretation:Normal Performing Lab: Notes/Report: Test performed by [facility] [address] [place] [address] , [place] [address] Sandip Velarde MD, Divorce Attorney CLIA: [id number] Ferritin 69.3 30.0-400.0 ng/mL P-Iron Reviewed date:12/07/2024 03:23:39 PM Interpretation:Normal Performing Lab: Notes/Report: Test performed by [facility] [address] [place] [address] , [place] [address] Sandip Velarde MD, Divorce Attorney CLIA: [id number] Iron 71 59-158 ug/dL P-Lipid Panel Reviewed date:12/07/2024 03:23:39 PM Interpretation:Chol 230, Chol/HDL 5.23, Non-HDL 186, LDL 159, LDL/HDL 3.6 Performing Lab: Notes/Report: Test performed by [facility] [address] [place] [address] , [place] [address] Sandip Velarde MD, Divorce Attorney CLIA: [id number] Cholesterol 230 <200 mg/dL Triglycerides 133 <150 [...] Interpretation:Normal Performing Lab: Notes/Report: Test performed by [email or web address], [address] , [facility], [place] [address] Sandip Velarde MD, Divorce Attorney CLIA: [id number] PSA 0.94 <4.00 ng/mL Please note this is an ultrasensitive PSA assay with a lower limit of detection of 0.014 ng/mL. This test is performed by the Brandi ECLIA methodology. Values obtained with different assay methods or kits cannot be directly compared. REASON FOR VISIT 2 Month Check Up w/ Labs, Needs labs with PSA & colon cancer screening Medications Medication SIG (Take, Route, Frequency, Duration) Notes Start Date End Date Status Eliquis 5 MG 1 tab(s) Orally Two times a day Active Ferrous Sulfate 325 (65 Fe) MG 1 tablet Orally twice a day Active Vital Signs Blood pressure systolic 140 mm Hg 12/07/19 25 Blood pressure diastolic 90 mm Hg 025 Heart Rate 93 /min 12/06/2024 Height 74 in 12/06/2024 Weight 245.2 lbs 12/06/2024 BMI 31.48 kg/m2 12/06/2024 Encounters Encounter Location Date Provider Diagnosis [facility] [address] [place], [place] [id number] 12/06/2024 Caroline Brooke Liver lesion K76.9 ; Acute pulmonary embolism, unspecified pulmonary embolism type, unspecified whether acute cor pulmonale present I26.99 ; Anemia, unspecified type D64.9 ; Dyslipidemia E78.5 ; Screening PSA (prostate specific antigen) Z12.5 and Bilateral impacted cerumen H61.23 Assessments Encounter Date Diagnosis (ICD Code) Assessment [...] soak bilaterally daily and return next week. Plan Of Treatment Medication Medication Name Sig Start Date Stop Date Notes Eliquis 5 MG 1 tab(s) Orally Two times a day Treatment Notes Assessment Notes Bilateral impacted cerumen Ears irrigate d but wax was not able to be removed. Will go home and soak bilaterally daily and return next week. Pending Test Test Name Order Date MRI : Liver, with and without contrast 0 12/06/2024 Next Appt Details Follow Up: 1 Week, Reason: Provider Name:Caroline Reyes y, 03/09/2025 09:15:00 AM, [address], [address], [place], [place], [id number], Progress Notes * JAS STRAUSSDOB:1975 ( 49 yo M)Acc No.[id number]:12/06/2024 Progress Notes Patient: JAS AYALA Provider: JON Reyez :1975 A ge:49 Y S ex:Male Date:12/06/2024 Address:[address] [place], [place] [id number] Pcp:Safia Bradshaw Subjective: * Chief Complaints: * [...] Single. New since last visit: none. 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 Past smoking status: no. Occup. exposure: none. Recreational drug use: no. Alcohol: no. Travel ouside [place]: no. * Medications: T tarahg Ferrous Sulfate 325 (65 Fe) MG Tablet 1 tablet Orally twice a day , Taking Eliquis 5 MG Tablet 1 tab(s) Orally Two times a day , Medication List reviewed and reconciled with the patient * Allergies: L ipitor: stomach upset - Side Effects. Objective: * Vitals: W t: 245.2, Temp: 98.4, BP: 140/90, HR: 93, Nurse: mmluis, Ht: 74, Repeat BP: 110/88, BMI:31.48. * [...] . B ilateral impacted cerumen - H61.23 Plan: * Treatment: 2. L iver lesion I maging: MRI : Liver, with and without contrast 3.?Anemia, unspecified type?LAB: P-Vitamin B12 (Collection Date & Time - 12/06/2024 08:48 AM)?Normal* Value Reference Range V itamin B12 868 932-5098 - pg/mL * Caroline Brooke 12/06/2024 0 9:45:52 AM EDT >room B, purple Adelaida, Adrienne 12/07/2024 03:23:31 PM EDT > See phone encounter ?LAB: P-Ferritin (Collection Date & Time - 12/06/2024 08:48 AM)?Normal* Value Reference Range F erritin 69.3 30.0-400.0 - ng/mL * Caroline Brooke 12/06/2024 0 9:45:52 AM EDT >room aleksandar Keith Whitney 12/07/2024 03:23:31 PM EDT > See phone encounter ?LAB: P-Iron (Collection Date & Time - 12/06/2024 08:48 AM)?Normal* Value Reference Range I glynn 71 59-158 - ug/dL * Caroline Brooke 12/06/2024 0 9:45:52 AM [...] by Creatinine 108 >59 - mL/min/1.73m2 * Edwardo Caroline S 12/06/2024 0 9:45:52 AM EDT >room aleksandar Whitney 12/07/2024 03:23:31 PM EDT > See [...] Brooke 12/06/2024 0 9:45:52 AM EDT >room aleksandar Keith Whitney 12/07/2024 03:23:31 PM EDT > See phone encounter 5.?Screening PSA (prostate specific antigen)?LAB: P-PSA (Collection Date & Time - 12/06/2024 08:48 AM)?Normal* Value Reference Range P SA 0.94 <4.00 - ng/mL * Caroline Brooke 12/06/2024 0 9:45:52 AM EDT >room B, Adrienne Myers 12/07/2024 03:23:31 PM EDT > See phone encounter 6.?Bilateral impacted cerumen? Notes: Ears irrigated but wax was not able to be removed. Will go home and soak bilaterally daily and return next week.?? * Procedure Codes: 8 5025 CBC WITH AUTO DIFF, 36030 VENIPUNCT, ROUTINE*, 00085 EAR IRRIGATION * Follow Up: 1 Week * Images: Billing Information: * Visit Code: 37014 Office Visit, Est Pt., Level 4. * Procedure Codes: 53879 CBC WITH AUTO DIFF. 15001 VENIPUNCT, ROUTINE*. 92205 EAR IRRIGATION. * Electronic signature of JNO Doherty on 12/15/2024 at 09:01 AM EDT Sign off status: Pending * Provider: JON Reyez Date: 0 12/06/2024 Generated for Printi ng/Faxing/eTransmitting on: 0 12/15/2024 09:01 AM EDT History [...]
--- NOTE | 2024-12-15 09:01 | MR_ITS ---
FINAL REPORT TECHNIQUE: Multiplanar and multisequence MR imaging was performed through the abdomen before and after contrast administration. CLINICAL HISTORY: LIVER LESION F/U FROM CT COMPARISON: CTA chest 09/22/2024 FINDINGS: LUNG BASES: Clear. LIVER: There is an enhancing round lesion in the liver dome, that measures up to 14 mm in size. This lesion does not have specific imaging characteristics, such as those of a hemangioma, that may be due to its small size. GALLBLADDER: Normal. COMMON BILE DUCT: Normal. SPLEEN: Normal. ADRENAL GLANDS: Normal. PANCREAS: Normal signal intensity. No evidence of acute pancreatitis. No pancreatic ductal dilation. KIDNEYS: There are tiny right renal cysts present. BOWEL: Unremarkable. PERITONEUM/RETROPERITONEUM: No free fluid or free air. LYMPH NODES: No adenopathy. SOFT TISSUES: Normal. IMPRESSION: 1. There is a stable sized enhancing lesion in the liver dome, that likely represents an atypical hemangioma. Recommend 6 to 12-month follow-up MRI with and without contrast for further evaluation. Reviewed, Interpreted and Dictated by Gigi Jay MD Transcribed by Mikayla Romero Authenticated and [facility]
--- OUTSIDE RECORDS SUMMARY | 2024-12-15 09:01 | XMS_ITS | Data Portability ---
Author Organization [facility] ADMIN Address [address] [place] [address] Assessment No assessment recorded. Plan of Treatment Reminders Order Date Submit Date Provider Last Modified By Organization Details Last Modified Time Details Appointments None recorded. Lab None recorded. Referral None recorded. Procedures nerve conduction study/EMG, lower extremity (PROC) 2023 024 [email or web address] Not available 10:49:30 Surgeries None recorded. Imaging [...] Address Organization Details Recorded Time Muscle weakness 92574727 Active 2023 Maya antony, [facility] & [place] 4 08:11:52 Paresthesi a 41781774 Active 2023 Xiomara David DO [address], [place], [address] , [facility] & [place] 4 13:03:11 Pain in bilateral legs 8693101459958 9108 Active 2023 Xiomara David DO [address], [place], [address] , [facility] & [place] 4 13:03:15 Bilateral foot drop 1642120718975 9103 Active 2023 Xiomara David DO [address], [place], [address] , [facility] & [place] 4 13:04:07 Problem Notes None recorded. Procedures Surgical History Date Name Laterality Status Provider Name and Address Organization Details Recorded Time 4 EMG/ Nerve Conduction Study completed Xiomara David DO [address], [place], [address], [facility] & [place] 10/28/2023 10:49:14 Back Surgery completed Maya Jeremy FELICIA Hilario [facility] & [place] 08/17/2023 11:01:14 Imaging Results None recorded. Procedure Notes None recorded. Medical Equipment None Reported. Allergies No known drug allergies Medications Not known to be on any medication Vitals Date Recorded Body height Body mass index (BMI) Body weight Heart rate Systolic blood pressure Diastolic blood pressure Provider Name and Address Organization Details Last Updated DateTime 4 182.88 cm 32.1 kg/m2 127897. 39 g 80 /min 106 mm[Hg] 78 mm[Hg] Maya Parishruss FELICIA - [facility] & [place] 4 10:58:57 Date Recorded Body height Body mass index (BMI) Body weight Heart rate Oxygen saturation Oxygen saturation in Arterial blood by Pulse oximetry Systolic blood pressure Diastolic blood pressure Provider Name and Address Organization Details Last Updated DateTime 4 182.88 cm 34 kg/m2 776034. 97 g 88 /min 98 % 98 % 126 mm[Hg] 78 mm[Hg] Maya DUARTE - [facility] & [place] 4 11:15:33 Date Recorded Body height Heart rate Systolic blood pressure Diastolic blood pressure Provider Name and Address Organization Details Last Updated DateTime 10/28/2023 182.88 cm 90 /min 136 mm[Hg] 88 mm[Hg] Maya DUARTE - [facility] & [place] 10/28/2023 10:26:44 Social History Question Answer Notes LastModified by Organizat ion Details LastModified Time Tobacco Smoking Status Never Smoker Maya Luna ar[place], [place] [facility] & [place] 08/17/2023 10:53:51 What Is Your Level Of Caffeine Consumption? None Information not available 08/17/2023 What Is Your Relationship Status? Single Lives With Father Information not available 08/17/2023 Are You Currently In School? No 11th Grade Information not available 08/17/2023 Sex: Unknown Functional Status Question Answer Note LastModified by Organizat ion Details LastModified Time Do you use any illicit or recreational drugs? No Information not available 08/17/2023 What is your level of alcohol consumption? None Information not available 08/17/2023 Are you currently employed? No Information not available 08/17/2023 Mental Status None recorded. Family History Relationship Description Onset Age of this Age Resolved Age Notes LastModified by Organization Details LastModified Time Mother Malignant neoplasm of rectum 62 ldalla Not available 2023 11:02:30 Father No current problems or disability ldalla Not available 08/17 11:02:58 Medical History Condition Response Back Problems Y Neurological Problems Y Past Encounters Encounter ID Performer Location Encounter Start Date Encounter Closed Date Diagnosis/Indication Diagnosis SNOMED-CT Code Diagnosis ICD10 Code Diagnosis Note [id number] Xiomara David DO [facility] [address] [facility],[address] [place] [address] 08/17/2023 10:20:18 08/17/2023 11:38:15 Pain in bilateral legs [id number] 5105905 M79.604 M79.605 Chronic progressiv e leg pain that has improved since recent lumber surgery to decompress impinged nerves. He is awaiting to start formal therapies. Paresthesia 10103708 R20 .2 Chronic distal paresthesi as which could be multifacto rial with multiple radiculopa rimma and suggestion of a distal peripheral neuropathy . He had an emg done at an outside location prior to surgery with denervatio n in predominat jem L5/S1 distributi ons.Will give him time to recover from surgery then re-evaluat e his exam. Potentiall y repeat the NCV/EMG in a few months time. Bilateral foot drop 1563 504157 7849089 M21.371 M21.372 Chronic issue that has progressiv jem worsened. Will see how he does once he starts formal therapies. No current equipment needs. [id number] Xiomara David DO [facility] [address] [facility],[address] [place] [address] 09/28/2023 11:10:01 09/28/2023 11:36:30 Pain in bilateral legs 9169299715 6362701 M79.604 M79.605 Chronic progressiv e leg pain that has improved significan tly since recent lumber surgery to decompress impinged nerves. He is currently in formal therapies. Paresthesia 61405318 R20 .2 Chronic distal paresthesi as which have now resolved since his back surgery. His exam has improved with normalized reflexes and sensation in his BLE's. Bilateral foot drop 1563 995909 1574029 M21.371 M21.372 Chronic issue that has been static since his back surgery. He is currently in formal therapies. We discussed repeat his nerve testing, he would like to give the PT a longer trial so will set testing up in October. No current equipment needs. His PT has ordered AFO's for him. [id number] Xiomara David DO [facility] [address] [facility],[address] [place] [address] 10/28/2023 10:21:51 10/28/2023 11:28:10 Bilateral foot drop [id number] [id number] M21.371 M21.372 Chronic issue that has been [...] Recorded Advance Directives Directive None Recorded Payers Insurance Date Sequence Insurance Name Policy Number Policy Jaeger Covered Member ID Jaeger Member ID Guarantor Name 09/20/2023 1 KRISHNA Strauss [id number] Jerry Strauss 08/19/2023 2 JORGE LUISTYSHAWN [facility] (MEDICAID HMO) Jerry Strauss [id number] Jerry Strauss 11/03/2023 1 JORGE LUISTYSHAWN [facility] (MEDICAID HMO) Jerry Strauss [id number] Jerry Strauss Notes Date Note Type Note [...] symptoms. Xiomara David, DO [address], [place], [address], [place] - [facility] [place] & [place] 08/17/2023 13:06:22 09/28/2023 text/html Jerry comes in [...] symptoms. Xiomara David, DO [address], [place], [address], [place] - [facility] [place] & [place] 09/28/2023 11:44:16
--- OUTSIDE RECORDS SUMMARY | 2024-12-15 09:01 | XMS_ITS | Patient Health Record ---
Author Organization [facility] Address [address] [place] [id number] Care Team Providers Care Covered Button Maker Name Role Phone Safia Bradshaw Primary Care Provider [phone] Poncho Kvng Unavailable [phone] Caroline Brooke Unavailable [phone] Allergies Allergen (clinical drug ingredient) Drug/Non Drug Allergy documented on EMR Reaction Allergy Type Onset Date Status atorvastatin Lipitor stomach upset Drug Allergy Active Results Component Value Reference Range Notes Venous Doppler: Bilateral lo wer extremities Reviewed date:10/12/2024 03:50:43 PM Interpretation:Negative Performing Lab: Notes/Report: Negative CBC Venipuncture (in house) Reviewed date:10/05/2024 04:30:12 [...] Interpretation:174 Performing Lab: Notes/Report: Test performed by [facility], [facility] [address] [place] [address] , [address], [place] [address] Sandip Velarde MD, Retail Planning Manager CLIA: [id number] Vitamin B12 496 609-8133 pg/mL P-Comprehensive Metabolic Pa juan miguel (CMP) Reviewed date:10/06/2024 08:45:41 AM Interpretation:BUN 5 Performing Lab: Notes/Report: Test performed by [facility] [address] [place] [address] , [address], [place] [address] Sandip Velarde MD, Retail Planning Manager CLIA: [id number] Sodium 139 135-145 mmol/L Potassium 4.2 3.5-5.3 [...] Interpretation:Normal Performing Lab: Notes/Report: Test performed by [facility] [address] [place] [address] , [place] [address] Sanidp Velarde MD, Retail Planning Manager CLIA: [id number] Folate 7.36 >4.59 ng/mL P-Ferritin Reviewed date:10/06/2024 08:45:42 AM Interpretation:Normal Performing Lab: Notes/Report: Test performed by [facility] [address] [place] [address] , [address], [place] [address] Sandip Velarde MD, Retail Planning Manager CLIA: [id number] Ferritin 99.3 30.0-400.0 ng/mL P-Iron Reviewed date:10/06/2024 08:45:42 AM Interpretation:24 Performing Lab: Notes/Report: Test performed by [facility] [address] [place] [address] , [address], [place] [address] Sandip Velarde MD, Retail Planning Manager CLIA: [id number] Iron 24 59-158 ug/dL CBC Venipuncture (in house) Reviewed date:12/07/2024 03:23:39 [...] Interpretation:Normal Performing Lab: Notes/Report: Test performed by [facility] [address] [place] [address] , [address], [place] [address] Sandip Velarde MD, Retail Planning Manager CLIA: [id number] Vitamin B12 440 644-4020 pg/mL P-Comprehensive Metabolic Pa juan miguel (CMP) Reviewed date:12/07/2024 03:23:39 PM Interpretation:Normal Performing Lab: Notes/Report: Test performed by [facility] [address] [place] [address] , [address], [place] [address] Sandip Velarde MD, Retail Planning Manager CLIA: [id number] Sodium 139 135-145 mmol/L Potassium 4.1 3.5-5.3 [...] Interpretation:Normal Performing Lab: Notes/Report: Test performed by [facility] [address] [place] [address] Sandip Velarde MD, Retail Planning Manager CLIA: [id number] Ferritin 69.3 30.0-400.0 ng/mL P-Iron Reviewed date:12/07/2024 03:23:39 PM Interpretation:Normal Performing Lab: Notes/Report: Test performed by [facility], [place] [id number] Sandip Velarde MD, Retail Planning Manager CLIA: [id number] Iron 71 59-158 ug/dL P-Lipid Panel Reviewed date:12/07/2024 03:23:39 PM Interpretation:Chol 230, Chol/HDL 5.23, Non-HDL 186, LDL 159, LDL/HDL 3.6 Performing Lab: Notes/Report: Test performed by [facility] [address] , [place] [address] Sandip Velarde MD, Retail Planning Manager CLIA: [id number] Cholesterol 230 <200 mg/dL Triglycerides 133 <150 [...] Interpretation:Normal Performing Lab: Notes/Report: Test performed by [facility], [address] , [address], [place] [address] Sandip Velarde MD, Retail Planning Manager CLIA: [id number] PSA 0.94 <4.00 ng/mL Please note this is an ultrasensitive PSA assay with a lower limit of detection of 0.014 ng/mL. This test is performed by the Brandi ECLIA methodology. Values obtained with different assay methods or kits cannot be directly compared. H-Glycohemoglobin A1C Reviewed date:09/27/2024 04:13:53 PM Interpretation:Normal Performing Lab: Notes/Report: HGBA1C 4.6 4.0-6.0 % < 6% Non-Diabetic Level < 7% Controlled Diabetic Level > 8% Poorly Controlled Diabetic Level Reason For Referral No Information Medications Medication SIG (Take, Route, Frequency, Duration) Notes Start Date End Date Status Rosuvastatin Calcium 5 MG 1 tablet Orall y Once a day; Duration: 90 days 12/14/2024 Active Eliquis 5 MG 1 tab(s) Orally Two times a day Active Ferrous Sulfate 325 (65 Fe) MG 1 tablet Orally twice a day Active Immunizations Vaccine Route Administration Date Status Comme nts COVID 19 [place] Unknown 04/29/2021 Administered COVID 19 Moderna Unknown 07/10/2021 Administered DT, 7 YEARS OR OLDER Unknown 08/24/1996 Administered Tetanus Tdap-Adacel (over 7yrs) IM Intramuscular 04/16/2012 Administered Problems Problem Type SNOMED Code ICD Code Onset Dates Problem Status W/U Status Risk Notes Problem Body mass index 30+ - obesity (506432517) BMI 30.0-30.9,adult (Z68.30) Active confirmed Problem Cervical disc disease (042260085) Cervical disc disease (M50.90) Active confirmed Problem Anemia (423867927) Anemia, unspecified type (D64.9) Active confirmed Problem Cervical spondylosis without myelopathy (295873753) Osteoarthritis of spine with radiculopathy, cervical region (M47.22) Active confirmed Problem Dyslipidemia (120448406) Dyslipidemia (E78.5) Active confirmed Problem Lesion of liver (832816598) Liver lesion (K76.9) Active confirmed Vital Signs Heart Rate 93 /min 12/06/2024 Blood pressure diastolic 90 mm Hg 12/06/2024 Height 74 in 12/06/2024 Blood pressure systolic 140 mm Hg 12/06/2024 Weight 245.2 lbs 12/06/2024 BMI 31.48 kg/m2 12/06/2024 Encounters Encounter Location Date Provider Diagnosis [facility] [address] [id number] 09/28/2024 Caroline Brooke Acute pulmonary embolism, unspecified pulmonary embolism type, unspecified whether acute cor pulmonale present I26.99 ; Liver lesion K76.9 and BMI 30.0-30.9,adult Z68.30 [facility] [address] [id number] 10/05/2024 Caroline Brooke Acute pulmonary embolism, unspecified pulmonary embolism type, unspecified whether acute cor pulmonale present I26.99 ; Liver lesion K76.9 and Anemia, unspecified type D64.9 [facility] [address] [place] [id number] 12/06/2024 Caroline Edwardo Liver lesion K76.9 ; Acute pulmonary embolism, unspecified pulmonary embolism type, unspecified whether acute cor pulmonale present I26.99 ; Anemia, unspecified type D64.9 ; Dyslipidemia E78.5 ; Screening PSA (prostate specific antigen) Z12.5 and Bilateral impacted cerumen H61.23 [facility] [address] [id number] 09/25/2024 Safia Brdashaw [facility] [address] [place] [id number] 10/06/2024 Caroline Brooke [facility] [address] [place] [id number] 12/07/2024 Caroline Crowricky Assessments Encounter Date Diagnosis (ICD Code) Assessment Notes Treatment Notes Treatment Clinical Notes Section Notes 10/05/2024 Liver lesion (ICD-10 - K76.9) Will need MRI when he can lay flat. 10/05/2024 Acute pulmonary embolism, unspecified pulmonary embolism type, unspecified whether acute cor pulmonale present (ICD-10 - I26.99) Venous Doppler was negative. 09/28/2024 Liver lesion (ICD-10 - K76.9) Will need MRI when he can lay flat. 09/28/2024 Acute pulmonary embolism, unspecified pulmonary embolism type, unspecified whether acute cor pulmonale present (ICD-10 - I26.99) Patient was to take 10mg of eliquis bid x 1 week. He has samples at home. Will send rx to see if we can get the medication covered. He has a free 30 day voucher. 12/06/2024 Liver lesion (ICD-10 - K76.9) 12/06/2024 Acute pulmonary embolism, unspecified pulmonary embolism type, unspecified whether acute cor pulmonale present (ICD-10 - I26.99) 10/05/2024 Anemia, unspecified type (ICD-10 - D64.9) 12/06/2024 Anemia, unspecified type (ICD-10 - D64.9) 09/28/2024 BMI 30.0-30.9,adult (ICD-10 - Z68.30) 12/06/2024 Dyslipidemia (ICD-10 - E78.5) 12/06/2024 Screening PSA (prostate specific antigen) (ICD-10 - Z12.5) 12/06/2024 Bilateral impacted cerumen (ICD-10 - H61.23) Ears irrigated but wax was not able to be removed. Will go home and soak bilaterally daily and return next week. Plan Of Treatment Pending Test Test Name Order Date MRI : Liver, with and without contrast 0 12/06/2024 Next Appt Details Provider Name:Caroline hanson, 03/09/2025 09:15:00 AM, [address], [address], [place], [phone], Insurance Providers Payer Name Payer Address Payer Phone Subscriber Number Group Number Insured Name Patient Relationship to Insured Coverage Start Date Coverage End Date [employer] [facility] [address] [place], [place] [id number] JAS STRAUSS Self - patient is the insured Medications Administered Medication Instructions Date of Administration Dosage Notes Depo- Medrol 40 mg/ml 10/09/2011 Dexamethasone 04/16/2012 Dexamethasone 08/26/2012 1 mL Medical (General) History Medical History History ICD Code hyperlipidemia Impaired fasting glucose Surgical History Surgery Date(Month/Year) appendectomy 02/22/12 Hospitalization History Reason Date(Month/Year) [facility]- kidney stones
[2024-12-15] MEDS: 0.9 % SODIUM CHLORIDE 50 ML VIAL 10 ML IV (09:51)
[2024-12-15] MEDS: GADOTERIDOL INJ 20ML SYRINGE 20 ML IV (09:51)
[2024-12-15] MEDS: SODIUM CHLORIDE 0.9% 10ML SYR (RAD ONLY) 10 ML IV (09:51)
== END 2024-12-15 23:59 | disposition home or self-care (01) ==
LOC: RAD 08:58
PROVIDERS: PCP Family Medicine; Visit Provider Physician Assistant
DX: K76.9 Liver disease, unspecified (principal)
CPT/HCPCS: 74183; A9576

== ENCOUNTER 2025-06-20 18:53 | Emergency (ER) | payer SELFPAY ==
--- OUTSIDE RECORDS SUMMARY | 2024-09-28 04:15 | XMS_ITS ---
[facility] Address [address] [facility] [address] [place] [id number] Care Team Providers Care Shipping Weigher Name Role Phone Safia Bradshaw Primary Care Provider [phone] Poncho Kvng Unavailable [phone] Caroline Brooke Unavailable [phone] Allergies Allergen (clinical drug ingredient) Drug/Non Drug Allergy documented on EMR Reaction Allergy Type Onset Date Status atorvastatin Lipitor stomach upset Drug Allergy Active Results Component Value Reference Range Notes Venous Doppler: Bilateral lo wer extremities Reviewed date:10/12/2024 03:50:43 PM Interpretation:Negative Performing Lab: Notes/Report: Negative REASON FOR VISIT [facility] D/C Follow Up Medications Medication SIG (Take, Route, Frequency, Duration) Notes Start Date End Date Status Eliquis 5 MG 1 tab(s) Orally Two times a day; Duration: 30 day(s) 09/28/2024 Activ e Ferrous Sulfate 325 (65 Fe) MG 1 tablet Orally twice a day Active Eliquis 5 MG 2 tab(s) Orally twic e a day Active Problems Problem Type SNOMED Code ICD Code Onset Dates Problem Status W/U Status Risk Notes Problem Lesion of liver (326443117) Liver lesion (K76.9) Active confirmed Problem Body mass index 30+ - obesity (233696353) BMI 30.0-30.9,ad ult (Z68.30) Active confirmed Vital Signs Blood pressure systolic 114 mm Hg 09/29/19 25 Blood pressure diastolic 80 mm Hg 025 Heart Rate 101 /min 09/28/2024 Height 74 in 09/28/2024 Weight 240.6 lbs 09/28/2024 BMI 30.89 kg/m2 09/28/2024 Encounters Encounter Location Date Provider Diagnosis [facility] [address] [place] [phone] 09/28/2024 Caroline Brooke Acute pulmonary embolism, unspecified pulmonary embolism type, unspecified whether acute cor pulmonale present I26.99 ; Liver lesion K76.9 and BMI 30.0-30.9,adult Z68.30 Assessments Encounter Date Diagnosis (ICD Code) Assessment Notes Treatment Notes Treatment Clinical Notes Section Notes 09/28/2024 Acute pulmonary embolism, unspecified pulmonary embolism type, unspecified whether acute cor pulmonale present (ICD-10 - I26.99) Patient was to take 10mg of eliquis bid x 1 week. He has samples at home. Will send rx to see if we can get the medication covered. He has a free 30 day voucher. 09/28/2024 Liver lesion (ICD-10 - K76.9) Will need MRI when he can lay flat. 09/28/2024 BMI 30.0-30.9,adult (ICD-10 - Z68.30) Plan Of Treatment Medication Medication Name Sig Start Date Stop Date Notes Eliquis 5 MG 1 tab(s) Orally Two times a day; Duration: 30 day(s) 09/28/2024 Treatment Notes Assessment Notes Acute pulmonary embolism, un specified pulmonary embolism type, unspecified whether acute cor pulmonale present Patient was to take 10mg of eliquis bid x 1 week. He has samples at home. Will send rx to see if we can get the medication covered. He has a free 30 day voucher. Liver lesion Will need MRI when h e can lay flat. Next Appt Details Follow Up: 1 Week with Yajaira ron, Reason: Provider Name:Caroline Reyes y, 09/13/2025 10:30:00 AM, [address], [address], [place], [phone], Progress Notes * JAS STRAUSSDOB:1975 ( 50 yo M)Acc No.[id number]:09/28/2024 Progress Notes Patient: JAS AYALA Provider: JON Reyez :1975 A ge:49 Y S ex:Male Date:09/28/2024 Address:[place], [id number] Pcp:Safia Bradshaw Subjective: * Chief Complaints: * 1 . [facility] D/C Follow Up. * HPI: C ardiology: The pt is here for a follow up from [facility] discharge due to Pulmonary Emboli. Pt states the shortness of breath is doing better. He is currently taking eliquis samples. He was supposed to have a venous doppler but states that was never scheduled. He also had a liver lesion that will need f/u MRI once his back has healed from surgery and he can lay flat. Denies : Chest Pain. D enies : Short of Breath. D enies : Dizziness. D enies : Palpitations. * ROS: D ERMATOLOGY: no R marilyn. n o H kayleen. G ASTROENTEROLOGY: no N ausea. n o V omiting. n o D iarrhea.? U ROLOGY: no D ifficulty urinating. n o B lood in urine. * Medical History: H yperlipidemia, Impaired fasting glucose. * Surgical History: a ppendectomy 02/22/12. * Hospitalization/Major Diagno stic Procedure: H ER- kidney stones . * Family History: F ather: alive 75 yrs, HLP, diagnosed with Hypertension. M other: . P aternal Grand Father: . P aternal Grand Mother: . M aternal Grand Father: alive.?Maternal Grand Mother: . 1 sister(s) - healthy. . * Social History: C URRENT TOBACCO USE S moking Status: Patient does NOT smoke. C affeine: yes, frequency:a lot. Exercise: no. Home smoke detector use: yes. Marital Status: Single. New since last visit: none. Occupation: [employer]. Past smoking status: no. Occup. exposure: none. Recreational drug use: no. Alcohol: no. Travel ouside [place]: no. * Medications: T aking Ferrous Sulfate 325 (65 Fe) MG Tablet 1 tablet Orally twice a day , Taking Eliquis 5 MG Tablet 2 tab(s) Orally twice a day , Discontinued Rosuvastatin Calcium 10 MG Tablet 1 tab(s) orally once a day (at bedtime) , Discontinued Omeprazole 40 MG Capsule Delayed Release 1 cap(s) orally once a day , Medication List reviewed and reconciled with the patient * Allergies: L ipitor: stomach upset - Side Effects. Objective: * Vitals: W t:240.6, Temp:98.3, BP:114/80, HR:101, O2 Sat:98% on RA, Nurse:LUPE, Ht: 74, BMI:30.89. * Examination: G eneral Examination: General Appearance: N AD. H EENT: u nremarkable.?Oral cavity: n o lesions, mucosa moist and WNL, no erythema. N laya: s upple, no lymphadenopathy. C hest: n ormal shape and expansion. H eart: R SR. L ungs: c lear to auscultation. A bdomen: bowel sounds present, soft and nontender, no organomegaly or masses, no guarding or rigidity. N eurologic Exam: I ntact, gait normal. S kin: n ormal, no rash. P eripheral pulses: n ormal (2+) bilaterally. E xtremities: n o leg edema. Assessment: * Assessment: 1. A cute pulmonary embolism, unspecified pulmonary embolism type, unspecified whether acute cor pulmonale present - I26.99 (Primary) 2 . L iver lesion - K76.9 ?3. B ID 30.0-30.9,adult - Z68.30 Plan: * Treatment: Notes: Patient was to take 10mg of eliquis bid x 1 week. He has samples at home. Will send rx to see if we can get the medication covered. He has a free 30 day voucher.??2.?Liver lesion? Notes: Will need MRI when he can lay flat.?? * Procedure Codes: 9 4760 PULSE OX, 3074F SYST BP LT 130 MM HG, 3079F DIAST BP 80-89 MM HG * Follow Up: 1 Week with Augustine * Images: Billing Information: * Visit Code: 22091 Office Visit, Est Pt., Level 4. * Procedure Codes: 22841 PULSE OX. 3074F SYST BP LT 130 MM HG. 3079F DIAST BP 80-89 MM HG. * Electronic signature of JON Doherty on 06/20/2025 at 07:17 PM EST Sign off status: Pending * Provider: JON Reyez Date: 0 09/28/2024 Generated for Asad napoles/Gonzalo/Eric on: 1 07:17 PM EST History and Physical Notes * HPI (History of Present Illness) Category Sub-Category Detail Notes Category Not es Cardiology Short of Breath Chest Pain Palpitations Dizziness Examination Category Sub-Category Detail Notes Category Not es General Examination HEENT: unremarkable Heart: RSR Lungs: clear to auscultatio n Abdomen: bowel sounds present , soft and nontender, no organomegaly or masses, no guarding or rigidity Extremities: no leg edema General Appearance: NAD Skin: normal, no rash Neurologic Exam: Intact, gait normal Neck: supple, no lymphaden opathy Oral cavity: no lesions, mucosa m oist and WNL, no erythema Peripheral pulses: normal (2+) bilatera lly Chest: normal shape and exp ansion
--- OUTSIDE RECORDS SUMMARY | 2024-10-05 10:15 | XMS_ITS ---
Author Organization [facility] Address [address] [facility] [address] [place] [id number] Care Team Providers Care Limousine Rental Clerk Name Role Phone Safia Bradshaw Primary Care Provider [phone] Poncho Kvng Unavailable [phone] Nahunricky Caroline Unavailable [phone] Allergies Allergen (clinical drug ingredient) Drug/Non Drug Allergy documented on EMR Reaction Allergy Type Onset Date Status atorvastatin Lipitor stomach upset Drug Allergy Active Results Component Value Reference Range Notes CBC Venipuncture (in house) Reviewed date:10/05/2024 04:30:12 PM Interpretation: Performing Lab: Notes/Report: wbc 6.9 3.5 - 10 lymph 36.3% 15 - 50 mid 6.2% 2 - 15 gran 57.5% 35 - 80 rbc 4.18 3.5 - 5.5 hgb 11.2 11.5 - 16.5 hct 34.6 35 - 55 mcv 82.6 75 - 100 mch 26.9 25 - 35 mchc 32.6 31 - 38 platlet 364 100 - 400 P-Vitamin B12 Reviewed date:10/06/2024 08:45:41 AM Interpretation:174 Performing Lab: Notes/Report: Test performed by [facility] , [address], [place] [address] Sandip Velarde MD, Enamel Machine Operator CLIA: [id number] Vitamin B12 401 420-3656 pg/mL P-Comprehensive Metabolic Pa juan miguel (CMP) Reviewed date:10/06/2024 08:45:41 AM Interpretation:BUN 5 Performing Lab: Notes/Report: Test performed by [facility], [address] , [address], [place] [address] Sandip Velarde MD, Enamel Machine Operator CLIA: [id number] Sodium 139 135-145 mmol/L Potassium 4.2 3.5-5.3 mmol/L Chloride 104 97-108 mmol/L CO2 24 22-32 mmol/L Glucose 74 65-99 mg/dL BUN 5 6-20 mg/dL Creatinine 0.73 0.70-1.30 mg/dL Calcium 9.0 8.6-10.4 mg/dL eGFR by Creatinine 111 >59 mL/min/1.73m2 Protein 7.0 6.0-8.3 g/dL Albumin 3.8 3.5-5.3 g/dL Alkaline Phosphatase 126 40-129 IU/L ALT (SGPT) 25 <5-55 IU/L AST (SGOT) 20 <5-46 IU/L Bilirubin, Total 0.2 <0.2-1.2 mg/dL A/G Ratio 1.2 1.1-2.5 P-Folate Reviewed date:10/06/2024 08:45:42 AM Interpretation:Normal Performing Lab: Notes/Report: Test performed by [facility] [address] , [address], [place] [address] Sandip Velarde MD, Enamel Machine Operator CLIA: [id number] Folate 7.36 >4.59 ng/mL P-Ferritin Reviewed date:10/06/2024 08:45:42 AM Interpretation:Normal Performing Lab: Notes/Report: Test performed by [facility] [address] , [address], [place] [address] Sandip Velarde MD, Enamel Machine Operator CLIA: [id number] Ferritin 99.3 30.0-400.0 ng/mL P-Iron Reviewed date:10/06/2024 08:45:42 AM Interpretation:24 Performing Lab: Notes/Report: Test performed by [facility] [address] , [address], [place] [address] Sandip Velarde MD, Enamel Machine Operator CLIA: [id number] Iron 24 59-158 ug/dL REASON FOR VISIT 1 week fu Medications Medication SIG (Take, Route, Frequency, Duration) Notes Start Date End Date Status Eliquis 5 MG 1 tab(s) Orally Two times a day Active Ferrous Sulfate 325 (65 Fe) MG 1 tablet Orally twice a day Active Problems Problem Type SNOMED Code ICD Code Onset Dates Problem Status W/U Status Risk Notes Problem Anemia (740181797) Anemia, unspecified type (D64.9) Active confirmed Vital Signs Blood pressure systolic 130 mm Hg 10/06/19 25 Blood pressure diastolic 84 mm Hg 025 Heart Rate 98 /min 10/05/2024 Height 74 in 10/05/2024 Weight 240 lbs 10/05/2024 BMI 30.81 kg/m2 10/05/2024 Encounters Encounter Location Date Provider Diagnosis [facility] [address] [place] [phone] 10/05/2024 Caroline Brooke Acute pulmonary embolism, unspecified pulmonary embolism type, unspecified whether acute cor pulmonale present I26.99 ; Liver lesion K76.9 and Anemia, unspecified type D64.9 Assessments Encounter Date Diagnosis (ICD Code) Assessment Notes Treatment Notes Treatment Clinical Notes Section Notes 10/05/2024 Acute pulmonary embolism, unspecified pulmonary embolism type, unspecified whether acute cor pulmonale present (ICD-10 - I26.99) Venous Doppler was negative. 10/05/2024 Liver lesion (ICD-10 - K76.9) Will need MRI when he can lay flat. 10/05/2024 Anemia, unspecified type (ICD-10 - D64.9) Plan Of Treatment Medication Medication Name Sig Start Date Stop Date Notes Eliquis 5 MG 1 tab(s) Orally Two times a day Treatment Notes Assessment Notes Acute pulmonary embolism, un specified pulmonary embolism type, unspecified whether acute cor pulmonale present Venous Doppler was negative. Liver lesion Will need MRI when h e can lay flat. Next Appt Details Follow Up: via phone to repo rt test results, Reason: Provider Name:Caroline hanson, 09/13/2025 10:30:00 AM, [address], [address], [place], [id number], Progress Notes * NESHA STRAUSS:1975 ( 50 yo M)Acc No.[id number]:10/05/2024 Progress Notes Patient: JAS AYALA Provider: JON Reyez :1975 A ge:49 Y S ex:Male Date:10/05/2024 Address:[address] [place], [place] [address], [id number] Pcp:Safia Bradshaw Subjective: * Chief Complaints: * 1 . 1 week fu. * HPI: H PI: 49 year old male presents with c/o Here for follow up on: P ulmonary embolism. Pt states he is feeling better and has not had any shortness of breath . ? * ROS: D ERMATOLOGY: no R marilyn. n o H kayleen. G ASTROENTEROLOGY: no N ausea. n o V omiting. U ROLOGY: no D ifficulty urinating. n [...] Single. New since last visit: none. Occupation: [employer]. Past smoking status: no. Occup. exposure: none. Recreational drug use: no. Alcohol: no. Travel ouside [place]: no. * Medications: T aking Ferrous Sulfate 325 (65 Fe) MG Tablet 1 tablet Orally twice a day , Taking Eliquis 5 MG Tablet 1 tab(s) Orally Two times a day , Discontinued Eliquis 5 MG Tablet 2 tab(s) Orally twice a day , Medication List reviewed and reconciled with the patient * Allergies: L ipitor: stomach upset - Side Effects. Objective: * Vitals: W t: 240, Temp: 98.1, BP: 130/84, HR: 98, Nurse: kk, Ht: 74, BMI:30.81. * Examination: G eneral Examination: General Appearance: [...] . L iver lesion - K76.9 ?3. A nemia, unspecified type - D64.9 Plan: * Treatment: 2. L iver lesion L AB: P-Comprehensive Metabolic Panel (CMP) (Collection Date & Time - 10/05/2024 02:29 PM) B UN 5 Value Reference Range A /G Ratio 1.2 1.1-2.5 - * A lbumin 3.8 3.5-5.3 - g/dL * A lkaline Phosphatase 126 40-129 - IU/L * A LT (SGPT) 25 <5-55 - IU/L * A ST (SGOT) 20 <5-46 - IU/L * B ilirubin, Total 0.2 <0.2-1.2 - mg/dL * B UN 5 L 6-20 - mg/dL * C alcium 9.0 8.6-10.4 - mg/dL * C hloride 104 97-108 - mmol/L * C O2 24 22-32 - mmol/L * C reatinine 0.73 0.70-1.30 - mg/dL * G lucose 74 65-99 - mg/dL * P otassium 4.2 3.5-5.3 - mmol/L * S odium 139 135-145 - mmol/L * P rotein 7.0 6.0-8.3 - g/dL * e GFR by Creatinine 111 >59 - mL/min/1.73m2 * Adrienne Son 10/06/2024 08: 45:26 AM > see phone encounter Notes: Will need MRI when he can lay flat.??3.?Anemia, unspecified type?LAB: P-Vitamin B12 (Collection Date & Time - 10/05/2024 02:29 PM)?174* Value Reference Range V itamin B12 174 L 232-1245 - pg/mL * Adrienne Son 10/06/2024 08: 45:26 AM > see phone encounter ?LAB: P-Folate (Collection Date & Time - 10/05/2024 02:29 PM)?Normal* Value Reference Range F olate 7.36 >4.59 - ng/mL * Adrienne Son 10/06/2024 08: 45:26 AM > see phone encounter ?LAB: P-Ferritin (Collection Date & Time - 10/05/2024 02:29 PM)?Normal* Value Reference Range F erritin 99.3 30.0-400.0 - ng/mL * Adrienne Son 10/06/2024 08: 45:26 AM > see phone encounter ?LAB: P-Iron (Collection Date & Time - 10/05/2024 02:29 PM)?24* Value Reference Range I glynn 24 L 59-158 - ug/dL * Adrienne Son 10/06/2024 08: 45:26 AM > see phone encounter ?LAB: CBC Venipuncture (in house) (Collection Date & Time - 10/05/2024)* Value Reference Range w bc 6.9 3.5 - 10 * l ymph 36.3% 15 - 50 * m id 6.2% 2 - 15 * g ran 57.5% 35 - 80 * r bc 4.18 3.5 - 5.5 * h gb 11.2 11.5 - 16.5 * h ct 34.6 35 - 55 * m cv 82.6 75 - 100 * m ch 26.9 25 - 35 * m chc 32.6 31 - 38 * p latlet 364 100 - 400 * Nikki Calvert 10/05/2024 4:08:04 PM >James Brookea Clinton 10/05/2024 4:30:08 PM > * Procedure Codes: 8 5025 CBC WITH AUTO DIFF, 3075F SYST BP GE 130 - 139MM HG, 3079F DIAST BP 80-89 MM HG * Follow Up: v ia phone to report test results * Images: Billing Information: * Visit Code: 02263 Office Visit, Est Pt., Level 4. * Procedure Codes: 76391 CBC WITH AUTO DIFF. 3075F SYST BP GE 130 - 139MM HG. 3079F DIAST BP 80-89 MM HG. * Electronic signature of JON Doherty on 06/20/2025 at 07:17 PM EST Sign off status: Pending * Provider: JON Reyez Date: 0 10/05/2024 Generated for Marlyi ng/Gonzalo/eTransmitting on: 1 07:17 PM EST History and Physical Notes * HPI (History of Present Illness) Category Sub-Category Detail Notes Category Not es HPI Here for follow up on: Pulmonary embolism. Pt states he is feeling better and has not had any shortness of breath Examination Category Sub-Category Detail Notes Category Not [...]
--- OUTSIDE RECORDS SUMMARY | 2024-12-06 04:00 | XMS_ITS ---
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 Name Role Phone Safia Bradshaw Primary Care Provider PonchoKvng Unavailable [phone] NahunCaroline garcía Unavailable [phone] Allergies Allergen (clinical drug ingredient) Drug/Non Drug Allergy documented on EMR Reaction Allergy Type Onset Date Status atorvastatin Lipitor stomach upset Drug Allergy Active Results Component Value Reference Range Notes CBC Venipuncture (in house) Reviewed date:12/07/2024 03:23:39 PM Interpretation:Normal Performing Lab: Notes/Report: Normal wbc 5.8 3.5 - 10 lymph 31.3 15 - 50 mid 6.5 2 - 15 gran 62.2 35 - 80 rbc 5.42 3.5 - 5.5 hgb 14.5 11.5 - 16.5 hct 44.9 35 - 55 mcv 82.7 75 - 100 mch 26.7 25 - 35 mchc 32.3 31 - 38 platlet 209 100 - 400 P-Vitamin B12 Reviewed date:12/07/2024 03:23:39 PM Interpretation:Normal Performing Lab: Notes/Report: Test performed by [employer] [facility] , [address], [place] [address] Sandip Velarde MD, Warehouse Handler CLIA: [id number] Vitamin B12 183 477-0944 pg/mL P-Comprehensive Metabolic Pa juan miguel (CMP) Reviewed date:12/07/2024 03:23:39 PM Interpretation:Normal Performing Lab: Notes/Report: Test performed by [employer] [address] [place] [address] , [address], [place] [address] Sandip Velarde MD, Warehouse Handler CLIA: [id number] Sodium 139 135-145 mmol/L Potassium 4.1 3.5-5.3 mmol/L Chloride 103 97-108 mmol/L CO2 25 22-32 mmol/L Glucose 90 65-99 mg/dL BUN 7 6-20 mg/dL Creatinine 0.80 0.70-1.30 mg/dL Calcium 9.4 8.6-10.4 mg/dL eGFR by Creatinine 108 >59 mL/min/1.73m2 Protein 7.0 6.0-8.3 g/dL Albumin 4.1 3.5-5.3 g/dL Alkaline Phosphatase 100 40-129 IU/L ALT (SGPT) 23 <5-55 IU/L AST (SGOT) 18 <5-46 IU/L Bilirubin, Total 0.3 <0.2-1.2 mg/dL A/G Ratio 1.4 1.1-2.5 P-Ferritin Reviewed date:12/07/2024 03:23:39 PM Interpretation:Normal Performing Lab: Notes/Report: Test performed by [employer] [address] [place] [address] , [place] [address] Sandip Velarde MD, Warehouse Handler CLIA: [id number] Ferritin 69.3 30.0-400.0 ng/mL P-Iron Reviewed date:12/07/2024 03:23:39 PM Interpretation:Normal Performing Lab: Notes/Report: Test performed by [employer] [address] [place] [address] , [place] [address] Sandip Velarde MD, Warehouse Handler CLIA: [id number] Iron 71 59-158 ug/dL P-Lipid Panel Reviewed date:12/07/2024 03:23:39 PM Interpretation:Chol 230, Chol/HDL 5.23, Non-HDL 186, LDL 159, LDL/HDL 3.6 Performing Lab: Notes/Report: Test performed by [employer] [address] [place] [address] , [place] [address] Sandip Velarde MD, Warehouse Handler CLIA: [id number] Cholesterol 230 <200 mg/dL Triglycerides 133 <150 mg/dL HDL Cholesterol 44 >39 mg/dL Cholesterol / HDL Ratio 5.23 0.00-4.99 Ratio Non-HDL Cholesterol 186 <130 mg/dL LDL Cholesterol (Calculation) 159 <130 mg/dL LDL Cholesterol Levels* Less than 100 mg/dL Optimal 100 to 129 mg/dL Near Optimal/ Above Optimal 130 to 159 mg/dL Borderline High 160 to 189 mg/dL High 190 mg/dL and above Very High * Categories as recommended by the 2004 ATPIII guidelines LDL/HDL Ratio 3.6 <3.3 Ratio LDL Cholesterol Patient History Test Date: 12/06/2024 LDL Results: 159 Units: mg/dL % Change: - P-PSA Reviewed date:12/07/2024 03:23:39 PM Interpretation:Normal Performing Lab: Notes/Report: Test performed by [employer], [address] , [facility], [place] [address] Sandip Velarde MD, Warehouse Handler CLIA: [id number] PSA 0.94 <4.00 ng/mL Please note this is an ultrasensitive PSA assay with a lower limit of detection of 0.014 ng/mL. This test is performed by the Brandi ECLIA methodology. Values obtained with different assay methods or kits cannot be directly compared. MRI : Liver, with and withou t contrast Reviewed date:12/20/2024 01:28:51 PM Interpretation:stable atypical hemangioma, recommend 6-12 month f/u MRI with and without contrast Performing Lab: Notes/Report: stable atypical hemangioma, recommend 6-12 month f/u MRI with and without contrast REASON FOR VISIT 2 Month Check Up w/ Labs, Needs labs with PSA & colon cancer screening Medications Medication SIG (Take, Route, Frequency, Duration) Notes Start Date End Date Status Eliquis 5 MG 1 tab(s) Orally Two times a day Active Ferrous Sulfate 325 (65 Fe) MG 1 tablet Orally twice a day Active Problems Problem Type SNOMED Code ICD Code Onset Dates Problem Status W/U Status Risk Notes Problem Body mass index 30.00 to 34.99 (884189045506 107) BMI 31.0-31.9,a dult (Z68.31) Active confirmed Vital Signs Blood pressure systolic 140 mm Hg 12/07/19 25 Blood pressure diastolic 90 mm Hg 025 Heart Rate 93 /min 12/06/2024 Height 74 in 12/06/2024 Weight 245.2 lbs 12/06/2024 BMI 31.48 kg/m2 12/06/2024 Encounters Encounter Location Date [facility] [address] [facility] [address] [place], [place] [id number] 12/06/2024 Caroline Brooke Liver lesion K76.9 ; Acute pulmonary embolism, unspecified pulmonary embolism type, unspecified whether acute cor pulmonale present I26.99 ; Anemia, unspecified type D64.9 ; Dyslipidemia E78.5 ; Screening PSA (prostate specific antigen) Z12.5 ; Bilateral impacted cerumen H61.23 and BMI 31.0-31.9,adult Z68.31 Assessments Encounter Date Diagnosis (ICD Code) Assessment Notes Treatment Notes Treatment Clinical Notes Section Notes 12/06/2024 Liver lesion (ICD-10 - K76.9) 12/06/2024 Acute pulmonary embolism, unspecified pulmonary embolism type, unspecified whether acute cor pulmonale present (ICD-10 - I26.99) 12/06/2024 Anemia, unspecified type (ICD-10 - D64.9) 12/06/2024 Dyslipidemia (ICD-10 - E78.5) 12/06/2024 Screening PSA (prostate specific antigen) (ICD-10 - Z12.5) 12/06/2024 Bilateral impacted cerumen (ICD-10 - H61.23) Ears irrigated but wax was not able to be removed. Will go home and soak bilaterally daily and return next week. 12/06/2024 BMI 31.0-31.9,adult (ICD-10 - Z68.31) Plan Of Treatment Medication Medication Name Sig Start Date Stop Date Notes Eliquis 5 MG 1 tab(s) Orally Two times a day Treatment Notes Assessment Notes Bilateral impacted cerumen Ears irrigate d but wax was not able to be removed. Will go home and soak bilaterally daily and return next week. Next Appt Details Follow Up: 1 Week, Reason: Provider Name:Caroline Reyes y, 09/13/2025 10:30:00 AM, [address] [facility] [address] [facility], [address] , [place], [place], [id number], Progress Notes * JAS STRAUSSDOB:1975 ( 50 yo M)Acc No.[id number]:12/06/2024 Progress Notes Patient: JAS AYALA Provider: JON Reyez :1975 A ge:49 Y S ex:Male Date:12/06/2024 Address:[address] [place] [id number] Pcp:Safia Bradshaw Subjective: * Chief Complaints: * 1 . 2 Month Check Up w/ Labs. 2. Needs labs with PSA & colon cancer screening. * HPI: H PI: 49 year old male presents with c/o Patient is here today for?Pt is here today for a check up with labs. * ROS: D ERMATOLOGY: no R marilyn. [...] Single. New since last visit: none. Occupation: [employer]. Past smoking status: no. Occup. exposure: none. Recreational drug use: no. Alcohol: no. Travel ouside [place]: no. * Medications: T aking Ferrous Sulfate 325 (65 Fe) MG Tablet 1 tablet Orally twice a day , Taking Eliquis 5 MG Tablet 1 tab(s) Orally Two times a day , Medication List reviewed and reconciled with the patient * Allergies: L ipitor: stomach upset - Side Effects. Objective: * Vitals: W t: 245.2, Temp: 98.4, BP: 140/90, HR: 93, Nurse: [facility], Ht: 74, Repeat BP: 110/88, BMI:31.48. * Examination: G eneral Examination: General Appearance: N AD. H EENT: s clera and conjunctiva clear, PERRLA, cerumen impaction bilaterally. O ral cavity: n o lesions, mucosa moist and WNL, no erythema. N laya: s upple, no lymphadenopathy. C hest: n ormal shape and expansion. H eart: R SR. L ungs: c lear to auscultation. A bdomen: b owel sounds present, soft and nontender, no organomegaly or masses. N eurologic Exam: I ntact, gait normal. S kin: n ormal, no rash. P eripheral pulses: n ormal (2+) bilaterally. Extremities: n o leg edema. Assessment: * Assessment: 1. A cute pulmonary embolism, unspecified pulmonary embolism type, unspecified whether acute cor pulmonale present - I26.99 (Primary) 2 . L iver lesion - K76.9 ?3. A nemia, unspecified type - D64.9 4 . D yslipidemia - E78.5 5. S creening PSA (prostate specific antigen) - Z12.5 6 . B ilateral impacted cerumen - H61.23 7 . B AL 31.0-31.9,adult - Z68.31 Plan: * Treatment: 2. L iver lesion I maging: MRI : Liver, with and without contrast (Performed Date - 12/15/2024) s table atypical hemangioma, recommend 6-12 month f/u MRI with and without contrast 3.?Anemia, unspecified type?LAB: P-Vitamin B12 (Collection Date & Time - 12/06/2024 08:48 AM)?Normal* Value Reference Range V itamin B12 895 949-4340 - pg/mL * NahunJames garcíaruss Alnozo 12/06/2024 0 9:45:52 AM EDT >room B, Adrienne Myers 12/07/2024 03:23:31 PM EDT > See phone encounter ?LAB: P-Ferritin (Collection Date & Time - 12/06/2024 08:48 AM)?Normal* Value Reference Range F erritin 69.3 30.0-400.0 - ng/mL * Caroline Brooke 12/06/2024 0 9:45:52 AM EDT >room Baleksandar Whitney 12/07/2024 03:23:31 PM EDT > See phone encounter ?LAB: P-Iron (Collection Date & Time - 12/06/2024 08:48 AM)?Normal* Value Reference Range I glynn 71 59-158 - ug/dL * NahunJames garcíaruss Alonzo 12/06/2024 0 9:45:52 AM EDT >room Baleksandar Whitney 12/07/2024 03:23:31 PM EDT > See phone encounter ?LAB: CBC Venipuncture (in house) (Collection Date & Time - 12/06/2024)? Normal* Value Reference Range w bc 5.8 3.5 - 10 * l ymph 31.3 15 - 50 * m id 6.5 2 - 15 * g ran 62.2 35 - 80 * r bc 5.42 3.5 - 5.5 * h gb 14.5 11.5 - 16.5 * h ct 44.9 35 - 55 * m cv 82.7 75 - 100 * m ch 26.7 25 - 35 * m chc 32.3 31 - 38 * p latlet 209 100 - 400 * Elsa Birmingham 12/06/2024 10:2 4:24 AM EDT > Adrienne Son 12/07/2024 03:23:31 PM EDT > See phone encounter 4.?Dyslipidemia?LAB: P-Comprehensive Metabolic Panel (CMP) (Collection Date & Time - 12/06/2024 08:48 AM)?Normal* Value Reference Range A /G Ratio 1.4 1.1-2.5 - * A lbumin 4.1 3.5-5.3 - g/dL * A lkaline Phosphatase 100 40-129 - IU/L * A LT (SGPT) 23 <5-55 - IU/L * A ST (SGOT) 18 <5-46 - IU/L * B ilirubin, Total 0.3 <0.2-1.2 - mg/dL * B UN 7 6-20 - mg/dL * C alcium 9.4 8.6-10.4 - mg/dL * C hloride 103 97-108 - mmol/L * C O2 25 22-32 - mmol/L * C reatinine 0.80 0.70-1.30 - mg/dL * G lucose 90 65-99 - mg/dL * P otassium 4.1 3.5-5.3 - mmol/L * S odium 139 135-145 - mmol/L * P rotein 7.0 6.0-8.3 - g/dL * e GFR by Creatinine 108 >59 - mL/min/1.73m2 * Caroline Brooke 12/06/2024 0 9:45:52 AM EDT >room B, purple Adrienne Son 12/07/2024 03:23:31 PM EDT > See phone encounter ?LAB: P-Lipid Panel (Collection Date & Time - 12/06/2024 08:48 AM)?Chol 230, Chol/HDL 5.23, Non-HDL 186, LDL 159, LDL/HDL 3.6* Value Reference Range C holesterol / HDL Ratio 5.23 H 0.00-4.99 - Ratio * C holesterol 230 H <200 - mg/dL * H DL Cholesterol 44 >39 - mg/dL * L DL Cholesterol (Calculation) 159 H <130 - mg/d L * L DL/HDL Ratio 3.6 H <3.3 - Ratio * N on-HDL Cholesterol 186 H <130 - mg/dL * T riglycerides 133 <150 - mg/dL * Caroline Brooke 12/06/2024 0 9:45:52 AM EDT >room B, Adrienne Myers 12/07/2024 03:23:31 PM EDT > See phone encounter 5.?Screening PSA (prostate specific antigen)?LAB: P-PSA (Collection Date & Time - 12/06/2024 08:48 AM)?Normal* Value Reference Range P SA 0.94 <4.00 - ng/mL * Edwardo Caroline Alonzo 12/06/2024 0 9:45:52 AM EDT >room B, Adrienne Myers 12/07/2024 03:23:31 PM EDT > See phone encounter 6.?Bilateral impacted cerumen? Notes: Ears irrigated but wax was not able to be removed. Will go home and soak bilaterally daily and return next week.?? * Procedure Codes: 6 9210 EAR IRRIGATION, 29553 CBC WITH AUTO DIFF, 71880 VENIPUNCT, ROUTINE*, 1036F TOBACCO NON-USER, G8783 BP SCR PRFRM RCMDD DEFIND SCR INTVL, G8752 MOST RECENT SYSTOLIC BP < 140MM HG, G8754 MOST RECENT DIASTOLIC BP < 90MM HG * Follow Up: 1 Week * Images: Billing Information: * Visit Code: 46820 Office Visit, Est Pt., Level 4. Modifiers: 25 * Procedure Codes: 35108 EAR IRRIGATION. 15498 CBC WITH AUTO DIFF. 07409 VENIPUNCT, ROUTINE*. 1036F TOBACCO NON-USER. G8783 BP SCR PRFRM RCMDD DEFIND SCR INTVL. G8752 MOST RECENT SYSTOLIC BP < 140MM HG. G8754 MOST RECENT DIASTOLIC BP < 90MM HG. * Electronic signature of JON Doherty on 06/20/2025 at 07:17 PM EST Sign off status: Pending * Provider: JON Reyez Date: 0 12/06/2024 Generated for Asad napoles/Gonzalo/eTrenesmitting on: 1 07:17 PM EST History and Physical Notes * HPI (History of Present Illness) Category Sub-Category Detail Notes Category Not es HPI Patient is here today for Pt is here today for a check up with labs Examination Category Sub-Category Detail Notes Category Not es General Examination HEENT: sclera and c onjunctiva clear, PERRLA, cerumen impaction bilaterally Heart: RSR Lungs: clear to auscultatio n Abdomen: bowel sounds present , soft and nontender, no organomegaly or masses Extremities: no leg edema General Appearance: NAD Skin: normal, no rash Neurologic Exam: Intact, gait normal Neck: supple, no lymphaden opathy Oral cavity: no lesions, mucosa m oist and WNL, no erythema Peripheral pulses: normal (2+) bilatera lly Chest: normal shape and exp ansion
--- OUTSIDE RECORDS SUMMARY | 2025-03-16 05:45 | XMS_ITS ---
Author Organization [facility] Address [address] [facility] [address] [place] [id number] Care Team Providers Care Stratigrapher Name Role Phone Safia Bradshaw Primary Care Provider [phone] Poncho Kvng Unavailable [phone] Nahunricky Caroline Unavailable [phone] Allergies Allergen (clinical drug ingredient) Drug/Non Drug Allergy documented on EMR Reaction Allergy Type Onset Date Status atorvastatin Lipitor stomach upset Drug Allergy Active Results Component Value Reference Range Notes CBC Venipuncture (in house) Reviewed date:03/16/2025 05:53:48 PM Interpretation: Performing Lab: Notes/Report: wbc 6.3 3.5 - 10 lymph 29.3 15 - 50 mid 10.1 2 - 15 gran 60.6 35 - 80 rbc 5.22 3.5 - 5.5 hgb 14.9 11.5 - 16.5 hct 45.2 35 - 55 mcv 86.5 75 - 100 mch 28.5 25 - 35 mchc 32.9 31 - 38 platlet 219 100 - 400 P-Vitamin B12 Reviewed date:03/19/2025 04:48:00 PM Interpretation:Normal Performing Lab: Notes/Report: Test performed by [facility] [address] [place] [address] , [address], [place] [address] Sandip Velarde MD, Floor Coverings Installer CLIA: [id number] Vitamin B12 328 536-8344 pg/mL P-Comprehensive Metabolic Pa juan miguel (CMP) Reviewed date:03/19/2025 04:48:01 PM Interpretation:Normal Performing Lab: Notes/Report: Test performed by [facility] [address] [place] [address] , [address], [place] [address] Sandip Velarde MD, Floor Coverings Installer CLIA: [id number] Sodium 139 135-145 mmol/L Potassium 4.2 3.5-5.3 mmol/L Chloride 102 97-108 mmol/L CO2 28 20-32 mmol/L Glucose 78 65-99 mg/dL BUN 6 6-20 mg/dL Creatinine 0.81 0.70-1.30 mg/dL Calcium 9.3 8.6-10.4 mg/dL eGFR by Creatinine 107 >59 mL/min/1.73m2 Protein 7.1 6.0-8.3 g/dL Albumin 4.3 3.5-5.3 g/dL Alkaline Phosphatase 90 40-129 IU/L ALT (SGPT) 29 <5-55 IU/L AST (SGOT) 22 <5-46 IU/L Bilirubin, Total 0.6 <0.2-1.2 mg/dL A/G Ratio 1.5 1.1-2.5 P-Ferritin Reviewed date:03/19/2025 04:48:01 PM Interpretation:Normal Performing Lab: Notes/Report: Test performed by [facility] [address] [place] [address] , [place] [address] Sandip Velarde MD, Floor Coverings Installer CLIA: [id number] Ferritin 82.7 30.0-400.0 ng/mL P-Iron Reviewed date:03/19/2025 04:48:01 PM Interpretation:Normal Performing Lab: Notes/Report: Test performed by [facility] [address] [place] [address] , [address], [place] [address] Sandip Velarde MD, Floor Coverings Installer CLIA: [id number] Iron 84 59-158 ug/dL P-Lipid Panel Reviewed date:03/19/2025 04:48:01 PM Interpretation:Normal Performing Lab: Notes/Report: Test performed by [facility] [address] [place] [address] , [address], [place] [address] Sandip Velarde MD, Floor Coverings Installer CLIA: [id number] Cholesterol 180 <200 mg/dL Triglycerides 99 <150 mg/dL HDL Cholesterol 43 >39 mg/dL Cholesterol / HDL Ratio 4.19 0.00-4.99 Ratio Non-HDL Cholesterol 137 <130 mg/dL LDL Cholesterol (Calculation) 117 <130 mg/dL LDL Cholesterol Levels* Less than 100 mg/dL Optimal 100 to 129 mg/dL Near Optimal/ Above Optimal 130 to 159 mg/dL Borderline High 160 to 189 mg/dL High 190 mg/dL and above Very High * Categories as recommended by the 2004 ATPIII guidelines LDL/HDL Ratio 2.7 <3.3 Ratio LDL Cholesterol Patient History Test Date: 12/06/2024 LDL Results: 159 Units: mg/dL % Change: - Test Date: 03/16/2025 LDL Results: 117 Units: mg/dL % Change: -26% P-Vitamin D 25-Hydroxy Reviewed date:03/19/2025 04:48:01 PM Interpretation:21.2 Performing Lab: Notes/Report: Test performed by [facility], [address] , [address], [place] [address] Sandip Velarde MD, Floor Coverings Installer CLIA: [id number] Vitamin D 25-Hydroxy 21.2 30.0-100.0 ng/mL Interpretation of Vitamin D 25 OH: < 20 ng/mL - Deficiency 20 - 29 ng/mL - Insufficiency 30 - 100 ng/mL - Sufficiency > 100 ng/mL - Super-therapeutic- toxicity may occur above this level. Clinical correlation required. REASON FOR VISIT 3 Month Check Up w/ Fasting Labs, Needs colon cancer screening Medications Medication SIG (Take, Route, Frequency, Duration) Notes Start Date End Date Status Rosuvastatin Calcium 5 MG 1 tablet Orall y Once a day; Duration: 90 days 12/14/2024 Active Ferrous Sulfate 325 (65 Fe) MG 1 tablet Orally twice a day Active Eliquis 5 MG 1 tab(s) Orally Two times a day Active Vitamin B12 100 MCG as directed Orally Active Vital Signs Blood pressure systolic 140 mm Hg 03/16/20 25 Blood pressure diastolic 90 mm Hg 025 Heart Rate 98 /min 03/16/2025 Height 74 in 03/16/2025 Weight 251.6 lbs 03/16/2025 BMI 32.3 kg/m2 03/16/2025 Encounters Encounter Location Date Provider Diagnosis [facility] [address] [place] [phone] 03/16/2025 Caroline Brooke Acute pulmonary embolism, unspecified pulmonary embolism type, unspecified whether acute cor pulmonale present I26.99 ; Anemia, unspecified type D64.9 and Dyslipidemia E78.5 Assessments Encounter Date Diagnosis (ICD Code) Assessment Notes Treatment Notes Treatment Clinical Notes Section Notes 03/16/2025 Acute pulmonary embolism, unspecified pulmonary embolism type, unspecified whether acute cor pulmonale present (ICD-10 - I26.99) 03/16/2025 Anemia, unspecified type (ICD-10 - D64.9) 03/16/2025 Dyslipidemia (ICD-10 - E78.5) Plan Of Treatment Medication Medication Name Sig Start Date Stop Date Notes Eliquis 5 MG 1 tab(s) Orally Two times a day Next Appt Details Follow Up: 6 Months, Reason: Provider Name:Caroline hanson, 09/13/2025 10:30:00 AM, [address], [address], [place], [place], [id number], Progress Notes * JAS STRAUSSDOB:1975 ( 50 yo M)Acc No.[id number]:03/16/2025 Progress Notes Patient: JAS AYALA Provider: JON Reyez :1975 A ge:50 Y S ex:Male Date:03/16/2025 Address:[address] [place] [address] [place], [id number] Pcp:Safia Bradshaw Subjective: * Chief Complaints: * 1 . 3 Month Check Up w/ Fasting Labs. 2. Needs colon cancer screening. * HPI: C ardiology: 50 year old male presents with c/o Dyslipidemia P t is here today for a 3 month check up. Pt sts he is doing well and has no concerns at this time. Pt sts he is fasting. * ROS: D ERMATOLOGY: no R marilyn. [...] New since last visit: none. 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 Past smoking status: no. Occup. exposure: none. Recreational drug use: no. Alcohol: no. Travel ouside [place]: no. * Medications: T aking Vitamin B12 100 MCG Tablet as directed Orally , Taking Ferrous Sulfate 325 (65 Fe) MG Tablet 1 tablet Orally twice a day , Taking Eliquis 5 MG Tablet 1 tab(s) Orally Two times a day , Taking Rosuvastatin Calcium 5 MG Tablet 1 tablet Orally Once a day , Medication List reviewed and reconciled with the patient * Allergies: L ipitor: stomach upset - Side Effects. Objective: * Vitals: W t: 251.6, Temp: 98.6, BP: 140/90, HR: 98, Nurse: mm, Ht: 74, Repeat BP: 128/88, BMI:32.3. * Examination: G eneral Examination: General Appearance: [...] pulmonale present - I26.99 (Primary) 2 . A nemia, unspecified type - D64.9? 3. D yslipidemia - E78.5 Plan: * Treatment: 2. A nemia, unspecified type L AB: P-Vitamin B12 (Collection Date & Time - 03/16/2025 10:20 AM) N ormal Value Reference Range V itamin B12 531 307-4302 - pg/mL * Caroline Brooke 03/16/2025 1 1:14:13 AM EDT >room 5, Adrienne Myers 03/19/2025 04:47:43 PM EDT > See phone encounter ?LAB: P-Ferritin (Collection Date & Time - 03/16/2025 10:20 AM)?Normal* Value Reference Range F erritin 82.7 30.0-400.0 - ng/mL * Caroline Brooke 03/16/2025 1 1:14:13 AM EDT >room 5, Adrienne Myers 03/19/2025 04:47:43 PM EDT > See phone encounter ?LAB: P-Iron (Collection Date & Time - 03/16/2025 10:20 AM)?Normal* Value Reference Range I glynn 84 59-158 - ug/dL * Caroline Brooke 03/16/2025 1 1:14:13 AM EDT >room 5, Adrienne Myers 03/19/2025 04:47:43 PM EDT > See phone encounter ?LAB: P-Vitamin D 25-Hydroxy (Collection Date & Time - 03/16/2025 10:20 AM)? 21.2* Value Reference Range V itamin D 25-Hydroxy 21.2 L 30.0-100.0 - ng/mL * Caroline Brooke 03/16/2025 1 1:14:13 AM EDT >room 5, Adrienne Myers 03/19/2025 04:47:43 PM EDT > See phone encounter ?LAB: CBC Venipuncture (in house) (Collection Date & Time - 03/16/2025)* Value Reference Range w bc 6.3 3.5 - 10 * l ymph 29.3 15 - 50 * m id 10.1 2 - 15 * g ran 60.6 35 - 80 * r bc 5.22 3.5 - 5.5 * h gb 14.9 11.5 - 16.5 * h ct 45.2 35 - 55 * m cv 86.5 75 - 100 * m ch 28.5 25 - 35 * m chc 32.9 31 - 38 * p latlet 219 100 - 400 * Elsa Birmingham 03/16/2025 11:5 6:10 AM EDT > 3.?Dyslipidemia?LAB: P-Comprehensive Metabolic Panel (CMP) (Collection Date & Time - 03/16/2025 10:20 AM)?Normal* Value Reference Range A /G Ratio 1.5 1.1-2.5 - * A lbumin 4.3 3.5-5.3 - g/dL * A lkaline Phosphatase 90 40-129 - IU/L * A LT (SGPT) 29 <5-55 - IU/L * A ST (SGOT) 22 <5-46 - IU/L * B ilirubin, Total 0.6 <0.2-1.2 - mg/dL * B UN 6 6-20 - mg/dL * C alcium 9.3 8.6-10.4 - mg/dL * C hloride 102 97-108 - mmol/L * C O2 28 20-32 - mmol/L * C reatinine 0.81 0.70-1.30 - mg/dL * G lucose 78 65-99 - mg/dL * P otassium 4.2 3.5-5.3 - mmol/L * S odium 139 135-145 - mmol/L * P rotein 7.1 6.0-8.3 - g/dL * e GFR by Creatinine 107 >59 - mL/min/1.73m2 * Caroline Brooke 03/16/2025 1 1:14:13 AM EDT >room 5, Adrienne Myers 03/19/2025 04:47:43 PM EDT > See phone encounter ?LAB: P-Lipid Panel (Collection Date & Time - 03/16/2025 10:20 AM)?Normal* Value Reference Range C holesterol / HDL Ratio 4.19 0.00-4.99 - Ratio * C holesterol 180 <200 - mg/dL * H DL Cholesterol 43 >39 - mg/dL * L DL Cholesterol (Calculation) 117 <130 - mg/d L * L DL/HDL Ratio 2.7 <3.3 - Ratio * N on-HDL Cholesterol 137 H <130 - mg/dL * T riglycerides 99 <150 - mg/dL * Caroline Brooke 03/16/2025 1 1:14:13 AM EDT >room 5, Adrienne Myers 03/19/2025 04:47:43 PM EDT > See phone encounter * Procedure Codes: 8 5025 CBC WITH AUTO DIFF, 1036F TOBACCO NON-USER, 3074F SYST BP LT 130 MM HG, 3079F DIAST BP 80-89 MM HG * Preventive Medicine: Screening / Special Tests: C olonoscopy o stan, scheduled 05/09/[address] Carvajal. * Follow Up: 6 Months * Images: Billing Information: * Visit Code: 32680 Office Visit, Est Pt., Level 4. * Procedure Codes: 33547 CBC WITH AUTO DIFF. 1036F TOBACCO NON-USER. 3074F SYST BP LT 130 MM HG. 3079F DIAST BP 80-89 MM HG. * Electronic signature of JON Doherty on 06/20/2025 at 07:17 PM EST Sign off status: Pending * Provider: JON Reyez Date: 0 03/16/2025 Generated for Asad napoles/Gonzalo/eTransmitting on: 1 07:17 PM EST History and Physical Notes * HPI (History of Present Illness) Category Sub-Category Detail Notes Category Not es Cardiology Dyslipidemia Pt is here today for a 3 month check up. Pt sts he is doing well and has no concerns at this time. Pt sts he is fasting Examination Category Sub-Category Detail Notes Category Not [...]
[2025-06-20 18:56] VITALS: BP 143/112; PULSE 109; RESP 20; TEMP 36.7; O2SAT 98; BMI 33.6
--- NOTE | 2025-06-20 19:03 | ED_ITS ---
Discharge Plan Disposition Patient Disposition: Home, Self-Care Condition: Good Prescriptions Prescriptions: New levofloxacin 750 mg tablet 750 mg PO DAILY 5 Days Qty: 5 0RF No Action sodium,potassium,mag sulfates [Suprep Bowel Prep Kit] 17.5-3.13-1.6 gram recon soln See Rx Instructions PO .COMPLEX Qty: 354 0RF Rx Instructions: DILUTE; drink full amount early evening before AND next morning at least 4-5 hr before procedure; follow w 960 mL water PO ferrous sulfate 325 mg (65 mg iron) Tablet 325 mg PO BID Qty: 90 2RF Eliquis 5 mg Tablet 10 mg PO BID Qty: 13 0RF Eliquis 5 mg tablet 10 mg PO BID Qty: 24 0RF Rx Instructions: 10mg BID for one week, then will decrease to 5mg BID Referrals Follow up/Referrals: Provider,Referral, MD [Primary Care Provider, Medical] - See instructions Activity Restrictions/Add. Instructions Additional Instructions/Restrictions: You were evaluated on an emergency basis. It is very important that you follow- up with your primary care provider and any specialist who we discussed within the next 2 days in order to better assess your health more comprehensively. For example, incidental findings on imaging or laboratory results that were performed today may be discovered, which do not require immediate medical care, but may impact your health in the future. If your symptoms worsen or persist, please return to the emergency department immediately for reassessment. Take all medications as prescribed. In queue for allowing me to participate in your health care, and I hope you feel better soon. Clinical Impressions Clinical Impression: Lung mass Instructions Patient Instructions: DI for Pulmonary Nodule Print Language Print Language: Japanese Discharge ED Provider: Fletcher Dela Cruz General Adult HPI <Inge Acosta - Last Filed: 06/20/25 20:59> General Chief complaint: Chest Pain Stated complaint: sharp pain in left side under ribs Time Seen by Provider: 06/20/25 19:03 History of Present Illness HPI narrative: 50-year-old male with a history of previous PEs presents to the emergency department with complaints of left lateral chest pain. He states that started approximately 1 hour prior to arrival. He states he has not take any medication for pain control prior to arrival. He denies a cardiac history. He states that he stopped taking his Eliquis in March under the direction of his primary care provider. He denies fevers. Related Data Previous Rx's ?Medication ?Instructions ?Recorded apixaban 5 mg tablet (Eliquis) 10 mg (2 x 5 mg) PO BID #13 tabs 09/23/24 apixaban 5 mg tablet (Eliquis) 10 mg (2 x 5 mg) PO BID #24 tabs 09/23/24 ferrous sulfate 325 mg (65 mg 325 mg PO BID #90 tabs 0 09/23/24 iron) tablet sodium,potassium,mag sulfates 17.5 See Rx Instructions PO .COMPLEX 02/21/25 gram-3.13 gram-1.6 gram oral soln #354 mL (Suprep Bowel Prep Kit) levofloxacin 750 mg tablet 750 mg PO DAILY 5 days #5 t abs 06/20/25 Allergies Allergy/AdvReac Type Severity Reaction Status Date / Time No Known Allergies Allergy Verified 12/28/21 17:03 [facility] <Inge Acosta - Last Filed: 06/20/25 20:59> [facility] Disclaimer: The information contained in this section may have been updated after the patient was seen, as this information can be updated by other users. Medical History (Updated 06/20/25 @ 20:57 by Inge Acosta) Renal colic on left side Anemia Hyperglycemia Scoliosis Surgical History (Updated 09/27/24 @ 00:00 by Arnaud Soliman) History of lumbar surgery History of appendectomy Family History (Updated 09/22/24 @ 17:46 by Xiomara Emery, RACHAEL) Other No significant family history Social History (Updated 09/22/24 @ 17:46 by Xiomara Emery RN) Smoking Status: Never smoker alcohol intake: never current occupational status: other Travel in the last 8 weeks?: None household members: other housing: other Have you lived/traveled outside [place] in past 30 days?: No Contact w/someone who lives/traveled outside [place] past 30 days?: No Exposure to someone with infectious disease in past 14 days?: No Do you have a fever (greater than 100.4 F or 38 C)?: No Have you tested positive for COVID-19?: No Exposed to someone with COVID-19 in past 14 days?: No Do you have a sore throat?: No Do you have a cough?: No Do you have any weakness?: No Do you have any diarrhea?: No Are you experiencing any unusual bleeding?: No Do you have any muscle aches/pain?: No Do you have any abdominal pain?: No Are you experiencing loss of taste or smell?: No Other Medical History Have you received the Flu Vaccine for this season: No Have you received the Pneumonia Vaccine: No <Inge Acosta Last Filed: 06/20/25 20:59> ROS Obtained: Yes other Cardiovascular Cardiovascular: Reports chest pain Physical Exam <Inge Acosta - Last Filed: 06/20/25 20:59> Narrative Physical exam: General: Awake, aware, in no acute distress HEENT: Normocephalic, no evidence of trauma CV: RRR, no murmurs, rubs, or gallops Pulm: CTA bilaterally with no rhonchi, rales, wheezes ABD: Nontender, no swelling, guarding, or rebound tenderness Psych, appropriate mood and affect General General appearance: alert Respiratory Respiratory exam: Present normal lung sounds bilaterally Cardiovascular Cardiovascular exam: Present regular rate Neurological Exam Neurological exam: Present alert Medical Decision Making <Inge Acosta - Last Filed: 06/20/25 20:59> Medical Records Screening: Per USPSTF and CDC recommendations, given the prevalence of disease in our region, it is our hospital?s policy to screen for HIV and viral Hepatitis for all patients aged 18 and over and those with ongoing risk factors. Ronny Inquiry Pt receiving controlled substance: No Vital Signs: 06/20/25 18:56 06/20/25 19:14 Temperature 98.1 F 98.9 F Temperature Source Oral Oral Pulse Rate 108 H Pulse Rate [Left Radial] 109 H Respiratory Rate 20 18 Blood Pressure 149/79 H Blood Pressure [Right Arm] 143/112 H Blood Pressure Mean [Right Arm] 122 02 Sat by Pulse Oximetry 98 98 Oxygen Delivery Method Room Air Room Air Lab Data Lab Results 06/20/25 19:14: WBC 11.2 H, RBC 5.11, Hgb 14.4, Hct 43.2, MCV 84.5, MCH 28.2, MCHC 33.3, RDW 12.9, Plt Count 248, MPV 10.3, Neut % (Auto) 65.0, Lymph % (Auto) 22.9, Harney % (Auto) 9.9 H, Eos % (Auto) 1.4, Baso % (Auto) 0.6, Neut # (Auto) 7.3, Lymph # (Auto) 2.6, Harney # (Auto) 1.1 H, Eos # (Auto) 0.2, Baso # (Auto) 0.1, PT 11.9, INR 1.08, APTT 30.5, Sodium 136, Potassium 3.6, Chloride 103, Carbon Dioxide 27, Anion Gap 9.6, BUN 9, Creatinine 1.00, Estimated Creat Clear 145, Estimated GFR 79, Est GFR ( Amer) 96, Glucose 108 H, Calcium 9.0, Total Bilirubin 0.9, AST 28, ALT 27, Alkaline Phosphatase 81, Troponin I < 0.01, NT-Pro-B Natriuret Pep < 20.0, Total Protein 8.1, Albumin 4.3, Globulin 3.8 H, Albumin/Globulin Ratio 1.1 06/20/25 19:14 06/20/25 19:14 Orders (Tests/Meds): ED MEDICATIONS Discontinued Medications Generic Name Dose Route Start Last Admin Trade Name Brandonq PRN Reason Stop Dose Admin Aspirin 324 mg 06/20/25 19:15 06/20/25 19:29 Aspirin 81mg Chewable Tablet PO 06/20/25 19:16 324 mg ONCE ONE Administration Iopamidol 80 ml 06/20/25 19:55 06/20/25 19:57 Iopamidol-370 (76%);100ml Bottle IV 06/20/25 19:56 80 ml ONCE ONE Administration Sodium Chloride 50 ml 06/20/25 19:55 06/20/25 19:57 0.9 % Sodium Chloride 50 Ml Vial IV 06/20/25 19:56 50 ml ONCE ONE Administration Sodium Chloride 10 ml 06/20/25 19:55 06/20/25 19:57 Sodium Chloride 0.9% 10ml Syr (Rad Only) IV 06/20/25 19:56 10 ml ONCE ONE Administration ORDERS Category Date Time Status CTA Chest [CT angio chest PE protocol] Stat Cat Scan 06/20/25 19:08 Completed BNP [NT Pro Brain Natriuretic Pep.] Stat Lab 06/20/25 19:14 Completed CBC w/Auto Diff [Complete Blood Count Auto Diff] Stat Lab 06/20/25 19:14 Completed CMP [Comprehensive Metabolic Panel] Stat Lab 06/20/25 19:14 Completed PT/PTT Stat Lab 06/20/25 19:14 Completed Troponin I Q3H Lab 06/20/25 19:14 Completed Troponin I Q3H Lab 06/20/25 22:15 Ordered EKG Request [ECG Request] Stat Y 06/20/25 19:06 Ordered Medical Decision Narrative: Initial impression of presenting illness: 50-year-old male presents to the emergency department with complaints of left lateral chest pain that started approximate 1 hour prior to arrival. Patient reports he does have a history of PEs however he stopped taking Eliquis in March under the direction of his primary care provider. He denies cardiac history. He denies fevers. He states he has not take any medication for pain control prior to arrival. Differential diagnosis includes but is not limited to: PE, pneumonia, ACS, heart failure, viral illness, pleurisy, costochondritis Patient arrives hemodynamically stable, afebrile, without respiratory distress with vital signs interpreted by myself. Initial physical exam unremarkable Initial diagnostic plan: Heart failure workup including CTA of chest, aspirin per ACS protocol Results from initial plan were reviewed and interpreted by myself, pertinent positives include: Laboratory studies were nonactionable. CTA of chest shows a peripheral masslike opacification within the posterior lateral basal segment of the left lower lobe that abuts the pleural margin. The area measures approximately 3 cm in diameter this is new compared to previous CT scans. Radiologist states this could represent a focal acute pneumonia embedded within the cavity however a rapidly developing lung malignancy cannot be excluded. Interventions in the ED: Patient was given aspirin per ACS protocol. Patient was made aware of the results and the findings, upon reevaluation patient has remained stable throughout stay, symptoms remained stable. Upon reevaluation patient is resting comfortably in bed with no signs of acute distress. Disposition: Reviewed findings today's workup with patient and informed that we will treat for pneumonia with Levaquin. I discussed with him the CT findings and how it could possibly be pneumonia versus a malignancy that is developing quickly. Advised him that I will give him contact information for pulmonology and recommended that he schedule close outpatient follow-up to evaluate this area. Instructed him to return to the emergency department any new or worsening symptoms. Patient was agreeable to plan of care. Patient made aware of findings and had a detailed discussion with symptomatic care and return precautions, patient voiced understanding. <Fletcher Dela Cruz MD - Last Filed: 06/20/25 21:16> Vital Signs: 06/20/25 18:56 06/20/25 19:14 Temperature 98.1 F 98.9 F Temperature Source Oral Oral Pulse Rate 108 H Pulse Rate [Left Radial] 109 H Respiratory Rate 20 18 Blood Pressure 149/79 H Blood Pressure [Right Arm] 143/112 H Blood Pressure Mean [Right Arm] 122 02 Sat by Pulse Oximetry 98 98 Oxygen Delivery Method Room Air Room Air Lab Data Lab Results 06/20/25 19:14: WBC 11.2 H, RBC 5.11, Hgb 14.4, Hct 43.2, MCV 84.5, MCH 28.2, MCHC 33.3, RDW 12.9, Plt Count 248, MPV 10.3, Neut % (Auto) 65.0, Lymph % (Auto) 22.9, Harney % (Auto) 9.9 H, Eos % (Auto) 1.4, Baso % (Auto) 0.6, Neut # (Auto) 7.3, Lymph # (Auto) 2.6, Harney # (Auto) 1.1 H, Eos # (Auto) 0.2, Baso # (Auto) 0.1, PT 11.9, INR 1.08, APTT 30.5, Sodium 136, Potassium 3.6, Chloride 103, Carbon Dioxide 27, Anion Gap 9.6, BUN 9, Creatinine 1.00, Estimated Creat Clear 145, Estimated GFR 79, Est GFR ( Amer) 96, Glucose 108 H, Calcium 9.0, Total Bilirubin 0.9, AST 28, ALT 27, Alkaline Phosphatase 81, Troponin I < 0.01, NT-Pro-B Natriuret Pep < 20.0, Total Protein 8.1, Albumin 4.3, Globulin 3.8 H, Albumin/Globulin Ratio 1.1 Orders (Tests/Meds): ED MEDICATIONS Discontinued Medications Generic Name Dose Route Start Last Admin Trade Name Freq PRN Reason Stop Dose Admin Aspirin 324 mg 06/20/25 19:15 06/20/25 19:29 Aspirin 81mg Chewable Tablet PO 06/20/25 19:16 324 mg ONCE ONE Administration Iopamidol 80 ml 06/20/25 19:55 06/20/25 19:57 Iopamidol-370 (76%);100ml Bottle IV 06/20/25 19:56 80 ml ONCE ONE Administration Sodium Chloride 50 ml 06/20/25 19:55 06/20/25 19:57 0.9 % Sodium Chloride 50 Ml Vial IV 06/20/25 19:56 50 ml ONCE ONE Administration Sodium Chloride 10 ml 06/20/25 19:55 06/20/25 19:57 Sodium Chloride 0.9% 10ml Syr (Rad Only) IV 06/20/25 19:56 10 ml ONCE ONE Administration ORDERS Category Date Time Status CTA Chest [CT angio chest PE protocol] Stat Cat Scan 06/20/25 19:08 Completed BNP [NT Pro Brain Natriuretic Pep.] Stat Lab 06/20/25 19:14 Completed CBC w/Auto Diff [Complete Blood Count Auto Diff] Stat Lab 06/20/25 19:14 Completed CMP [Comprehensive Metabolic Panel] Stat Lab 06/20/25 19:14 Completed PT/PTT Stat Lab 06/20/25 19:14 Completed Troponin I Q3H Lab 06/20/25 19:14 Completed Troponin I Q3H Lab 06/20/25 22:15 Ordered EKG Request [ECG Request] Stat Y 06/20/25 19:06 Ordered ECG Data Tracing #1: Independently interpreted by me rate is 97, rhythm is regular, axis is normal, no ST elevation in anatomical contiguous leads, QTc 381. Medical Decision Narrative: Initial impression of presenting illness: 50-year-old male presents to the emergency department with complaints of left lateral chest pain that started approximate 1 hour prior to arrival. Patient reports he does have a history of PEs however he stopped taking Eliquis in March under the direction of his primary care provider. He denies cardiac history. He denies fevers. He states he has not take any medication for pain control prior to arrival. Differential diagnosis includes but is not limited to: PE, pneumonia, ACS, heart failure, viral illness, pleurisy, costochondritis Patient arrives hemodynamically stable, afebrile, without respiratory distress with vital signs interpreted by myself. Initial physical exam unremarkable Initial diagnostic plan: Heart failure workup including CTA of chest, aspirin per ACS protocol Results from initial plan were reviewed and interpreted by myself, pertinent positives include: Laboratory studies were nonactionable. CTA of chest shows a peripheral masslike opacification within the posterior lateral basal segment of the left lower lobe that abuts the pleural margin. The area measures approximately 3 cm in diameter this is new compared to previous CT scans. Radiologist states this could represent a focal acute pneumonia embedded within the cavity however a rapidly developing lung malignancy cannot be excluded. Interventions in the ED: Patient was given aspirin per ACS protocol. Patient was made aware of the results and the findings, upon reevaluation patient has remained stable throughout stay, symptoms remained stable. Upon reevaluation patient is resting comfortably in bed with no signs of acute distress. Disposition: Reviewed findings today's workup with patient and informed that we will treat for pneumonia with Levaquin. I discussed with him the CT findings and how it could possibly be pneumonia versus a malignancy that is developing quickly. Advised him that I will give him contact information for pulmonology and recommended that he schedule close outpatient follow-up to evaluate this area. Instructed him to return to the emergency department any new or worsening symptoms. Patient was agreeable to plan of care. Patient made aware of findings and had a detailed discussion with symptomatic care and return precautions, patient voiced understanding. Fletcher Dela Cruz MD: I was consulted by the KATIE, and we discussed the complexity of the problems being addressed. I approved the treatment and management plan for this patient's care in the emergency department, thus performing a substantive portion of the medical decision making. Critical Care <Inge Acosta - Last Filed: 06/20/25 20:59> Critical Care Time Critical Care Time: No
--- NOTE | 2025-06-20 19:08 | CT_ITS ---
PROCEDURE INFORMATION: Exam: CTA Chest With Contrast Exam date and time: 06/20/2025 7:54 PM Age: 50 years old Clinical indication: Pain; Shortness of breath and other: Tachycardia; Left-sided; Additional info: HX of pe, tachycardia TECHNIQUE: Imaging protocol: Computed tomographic angiography of the chest with contrast. Exam focused on the arteries. 3D rendering (Not supervised by radiologist): MIP and/or 3D reconstructed images were created by the technologist. Radiation optimization: All CT scans at this facility use at least one of these dose optimization techniques: automated exposure control; mA and/or kV adjustment per patient size (includes targeted exams where dose is matched to clinical indication); or iterative reconstruction. Contrast material: ISO; Contrast volume: 80 ml; Contrast route: INTRAVENOUS (IV); COMPARISON: CT ANGIO CHEST PE PROTOCOL 09/22/2024 2:48 PM FINDINGS: Pulmonary arteries: No CT evidence for pulmonary embolism. Aorta: Unremarkable. No aortic aneurysm. No aortic dissection. Lungs: This could this probably represents focal acute pneumonia embedded within this cavity and surrounding the cavity. However a rapidly developing lung malignancy would not be entirely excluded but felt less likely. After treatment for pneumonia, recommend follow-up CT scan in 6 weeks. Bibasilar atelectasis with some bilateral lower lobe mosaic attenuation likely related to hypoinflation. Pleural spaces: Peripheral masslike opacification within the posterolateral/lateral basal segment left lower lobe abuts the pleural margin. Measures 3 cm diameter. New from prior CT although within this region there was a air cavity noted on the prior exam. Heart: Unremarkable. No cardiomegaly. No pericardial effusion. Lymph nodes: Unremarkable. No enlarged lymph nodes. Bones/joints: Unremarkable. No acute fracture. Soft tissues: Unremarkable. IMPRESSION: 1. Peripheral masslike opacification within the posterolateral/lateral basal segment left lower lobe abuts the pleural margin. Measures 3 cm diameter. New from prior CT although within this region there was a air cavity noted on the prior exam. This could this probably represents focal acute pneumonia embedded within this cavity and surrounding the cavity. However a rapidly developing lung malignancy would not be entirely excluded but felt less likely. After treatment for pneumonia, recommend follow-up CT scan in [address] evidence for pulmonary embolism. 3. Bibasilar atelectasis with some bilateral lower lobe mosaic attenuation likely related to hypoinflation.
[2025-06-20 19:14] VITALS: BP 149/79; PULSE 108; RESP 18; TEMP 37.2; O2SAT 98
--- OUTSIDE RECORDS SUMMARY | 2025-06-20 19:17 | XMS_ITS | Patient Health Record ---
[facility] Organization [facility] Address [address] [place] [id number] Care Team Providers Care Assistant Director Of Public Works Name Role Phone Safia Bradshaw Primary Care Provider [phone] Poncho Kvng Unavailable [phone] Caroline Brooke Unavailable [phone] Allergies Allergen (clinical drug ingredient) Drug/Non Drug [...] Interpretation:174 Performing Lab: Notes/Report: Test performed by [email or web address] [address] [place] [address] , [address], [place] [address] Sandip Velarde MD, Podiatric Surgeon CLIA: [id number] Vitamin B12 457 183-8691 pg/mL P-Comprehensive Metabolic Pa juan miguel (CMP) Reviewed date:10/06/2024 08:45:41 AM Interpretation:BUN 5 Performing Lab: Notes/Report: Test performed by [facility] [address] [place] [address] , [address], [place] [address] Sandip Velarde MD, Podiatric Surgeon CLIA: [id number] Sodium 139 135-145 mmol/L Potassium 4.2 3.5-5.3 [...] Interpretation:Normal Performing Lab: Notes/Report: Test performed by [facility] [address] [place] [address] , [place] [address] Sandip Velarde MD, Podiatric Surgeon CLIA: [id number] Folate 7.36 >4.59 ng/mL P-Ferritin Reviewed date:10/06/2024 08:45:42 AM Interpretation:Normal Performing Lab: Notes/Report: Test performed by [facility] [address] [place] [address] , [address], [place] [address] Sandip Velarde MD, Podiatric Surgeon CLIA: [id number] Ferritin 99.3 30.0-400.0 ng/mL P-Iron Reviewed date:10/06/2024 08:45:42 AM Interpretation:24 Performing Lab: Notes/Report: Test performed by [facility] [address] [place] [address] , [address], [place] [address] Sandip Velarde MD, Podiatric Surgeon CLIA: [id number] Iron 24 59-158 ug/dL CBC Venipuncture (in [...] Interpretation:Normal Performing Lab: Notes/Report: Test performed by [facility] [address] [place] [address] , [address], [place] [address] Sandip Velarde MD, Podiatric Surgeon CLIA: [id number] Vitamin B12 219 111-9411 pg/mL P-Comprehensive Metabolic Pa juan miguel (CMP) Reviewed date:12/07/2024 03:23:39 PM Interpretation:Normal Performing Lab: Notes/Report: Test performed by [facility] [address] [place] [address] , [address], [place] [address] Sandip Velarde MD, Podiatric Surgeon CLIA: [id number] Sodium 139 135-145 mmol/L Potassium 4.1 3.5-5.3 [...] Interpretation:Normal Performing Lab: Notes/Report: Test performed by [email or web address] [address] [place] [address] Sandip Velarde MD, Podiatric Surgeon CLIA: [id number] Ferritin 69.3 30.0-400.0 ng/mL P-Iron Reviewed date:12/07/2024 03:23:39 PM Interpretation:Normal Performing Lab: Notes/Report: Test performed by [email or web address] [place] [address], [place] [id number] Sandip Velarde MD, Podiatric Surgeon CLIA: [id number] Iron 71 59-158 ug/dL P-Lipid Panel Reviewed date:12/07/2024 03:23:39 PM Interpretation:Chol 230, Chol/HDL 5.23, Non-HDL 186, LDL 159, LDL/HDL 3.6 Performing Lab: Notes/Report: Test performed by [email or web address] [address] , [place] [address] Sandip Velarde MD, Podiatric Surgeon CLIA: [id number] Cholesterol 230 <200 mg/dL Triglycerides 133 <150 [...] Interpretation:Normal Performing Lab: Notes/Report: Test performed by [facility], [address] , [address], [place] [address] Sandip Velarde MD, Podiatric Surgeon CLIA: [id number] PSA 0.94 <4.00 ng/mL Please note this [...] month f/u MRI with and without contrast H-Glycohemoglobin A1C Reviewed date:09/27/2024 04:13:53 PM Interpretation:Normal Performing Lab: Notes/Report: HGBA1C 4.6 4.0-6.0 % < 6% Non-Diabetic Level < 7% Controlled Diabetic Level > 8% Poorly Controlled Diabetic Level CBC Venipuncture (in house) Reviewed date:03/16/2025 05:53:48 [...] Interpretation:Normal Performing Lab: Notes/Report: Test performed by [facility] [address] [place] [address] , [address], [place] [address] Sandip Velarde MD, Podiatric Surgeon CLIA: [id number] Vitamin B12 837 143-0960 pg/mL P-Comprehensive Metabolic Pa juan miguel (CMP) Reviewed date:03/19/2025 04:48:01 PM Interpretation:Normal Performing Lab: Notes/Report: Test performed by [facility] [address] [place] [address] , [address], [place] [address] Sandip Velarde MD, Podiatric Surgeon CLIA: [id number] Sodium 139 135-145 mmol/L Potassium 4.2 3.5-5.3 [...] Interpretation:Normal Performing Lab: Notes/Report: Test performed by [facility] [address] [place] [address] , [address], [place] [address] Sandip Velarde MD, Podiatric Surgeon CLIA: [id number] Ferritin 82.7 30.0-400.0 ng/mL P-Iron Reviewed date:03/19/2025 04:48:01 PM Interpretation:Normal Performing Lab: Notes/Report: Test performed by [facility] [address] [place] [address] , [place] [address] Sandip Velarde MD, Podiatric Surgeon CLIA: [id number] Iron 84 59-158 ug/dL P-Lipid Panel Reviewed date:03/19/2025 04:48:01 PM Interpretation:Normal Performing Lab: Notes/Report: Test performed by [facility] [address] [place] [address] , [facility], [place] [address] Sandip Velarde MD, Podiatric Surgeon CLIA: [id number] Cholesterol 180 <200 mg/dL Triglycerides 99 <150 [...] Interpretation:21.2 Performing Lab: Notes/Report: Test performed by [facility] [address] [place] [address] , [address], [place] [address] Sandip Velarde MD, Podiatric Surgeon CLIA: [id number] Vitamin D 25-Hydroxy 21.2 30.0-100.0 ng/mL Interpretation of Vitamin D 25 [place]: < 20 ng/mL - Deficiency 20 - 29 ng/mL - Insufficiency 30 - 100 ng/mL - Sufficiency > 100 ng/mL - Super-therapeutic- toxicity may occur above this level. Clinical correlation required. Reason For Referral No Information Medications Medication SIG (Take, Route, Frequency, Duration) Notes Start Date End Date Status Rosuvastatin Calcium 5 MG 1 tablet Orall y Once a day; Duration: 90 days 12/14/2024 Active Ferrous Sulfate 325 (65 Fe) MG 1 tablet Orally twice a day Active Vitamin B12 100 MCG as directed Orally Active Eliquis 5 MG TAKE 1 TABLET BY SUNI TWICE DAILY; Duration: 30 Active Immunizations Vaccine Route Administration Date Status Comme nts Tetanus Tdap-Adacel (over 7yrs) IM Intramuscular 04/16/2012 Administered DT, 7 YEARS OR OLDER Unknown 08/24/1996 Administered COVID 19 Moderna Unknown 07/10/2021 Administered COVID 19 Carlota Unknown 04/29/2021 Administered Problems Problem Type SNOMED Code ICD Code Onset Dates Problem Status W/U Status Risk Notes Problem Body mass index 30+ - obesity (001841400) BMI 30.0-30.9,adult (Z68.30) Active confirmed Problem Cervical disc disease (301881470) Cervical disc disease (M50.90) Active confirmed Problem Anemia (435874506) Anemia, unspecified type (D64.9) Active confirmed Problem Body mass index 30.00 to 34.99 (601437060387306 ) BMI 31.0-31.9,adult (Z68.31) Active confirmed Problem Cervical spondylosis without myelopathy (141017451) Osteoarthritis of spine with radiculopathy, cervical region (M47.22) Active confirmed Problem Dyslipidemia (867905983) Dyslipidemia (E78.5) Active confirmed Problem Lesion of liver (160111227) Liver lesion (K76.9) Active confirmed Vital Signs Heart Rate 98 /min 03/16/2025 Blood pressure diastolic 90 mm Hg 03/16/2025 Height 74 in 03/16/2025 Blood pressure systolic 140 mm Hg 03/16/2025 Weight 251.6 lbs 03/16/2025 BMI 32.3 kg/m2 03/16/2025 Encounters Encounter Location Date Provider Diagnosis [facility] [id number] 09/28/2024 Caroline Brooke Acute pulmonary embolism, unspecified pulmonary embolism type, unspecified whether acute cor pulmonale present I26.99 ; Liver lesion K76.9 and BMI 30.0-30.9,adult Z68.30 [facility] [address] [id number] 10/05/2024 Caroline Brooke Acute pulmonary embolism, unspecified pulmonary embolism type, unspecified whether acute cor pulmonale present I26.99 ; Liver lesion K76.9 and Anemia, unspecified type D64.[address] [place], [place] [id number] 12/06/2024 Caroline Brooke Liver lesion K76.9 ; Acute pulmonary embolism, unspecified pulmonary embolism type, unspecified whether acute cor pulmonale present I26.99 ; Anemia, unspecified type D64.9 ; Dyslipidemia E78.5 ; Screening PSA (prostate specific antigen) Z12.5 ; Bilateral impacted cerumen H61.23 and BMI 31.0-31.9,adult Z68.31 [facility] [place] [address] [place] [id number] 03/16/2025 Caroline Brooke Acute pulmonary embolism, unspecified pulmonary embolism type, unspecified whether acute cor pulmonale present I26.99 ; Anemia, unspecified type D64.9 and Dyslipidemia E78.5 [facility] [address] [place], [place] [id number] 09/25/2024 Safia Bradshaw [facility] [address] [place], [place] [id number] 10/06/2024 Caroline Garnicaricky [facility] [address] [place], [place] [id number] 12/07/2024 Caroline Brooke [facility] [address] [place], [place] [id number] 12/18/2024 Safia Bradshaw Screening for colon cancer Z12.11 [facility] [address] [place], [place] [id number] 12/20/2024 Carolineruss Brooke [facility] [address] [place], [place] [id number] 02/21/2025 Caroline Brooke [facility] [address] [place], [place] [id number] 03/19/2025 Caroline Garnicaricky Assessments Encounter Date Diagnosis (ICD Code) Assessment [...] voucher. 12/06/2024 Liver lesion (ICD-10 - K76.9) 03/16/2025 Acute pulmonary embolism, unspecified pulmonary embolism type, unspecified whether acute cor pulmonale present (ICD-10 - I26.99) 12/18/2024 Screening for colon cancer (ICD-10 - Z12.11) 12/06/2024 Acute pulmonary embolism, unspecified pulmonary embolism type, unspecified whether acute cor pulmonale present (ICD-10 - I26.99) 03/16/2025 Anemia, unspecified type (ICD-10 - D64.9) 10/05/2024 Anemia, unspecified type (ICD-10 - D64.9) 12/06/2024 Anemia, unspecified type (ICD-10 - D64.9) 09/28/2024 BMI 30.0-30.9,adult (ICD-10 - Z68.30) 03/16/2025 Dyslipidemia (ICD-10 - E78.5) 12/06/2024 Dyslipidemia (ICD-10 - E78.5) 12/06/2024 Screening PSA (prostate specific antigen) (ICD-10 - Z12.5) 12/06/2024 Bilateral impacted cerumen (ICD-10 - H61.23) Ears irrigated but wax was not able to be removed. Will go home and soak bilaterally daily and return next week. 12/06/2024 BMI 31.0-31.9,adult (ICD-10 - Z68.31) Plan Of Treatment Pending Test Test Name Order Date colonoscopy 12/18/2024 Next Appt Details Provider Name:Caroline hanson, 09/13/2025 10:30:00 AM, [address] [facility], [address], [place], [place], [id number], Insurance Providers Payer Name Payer Address Payer Phone Subscriber Number Group Number Insured Name Patient Relationship to Insured Coverage Start Date Coverage End Date [facility] [address] [place], [place] [id number] JAS STRAUSS Self - patient is the insured Medications Administered Medication Instructions Date of Administration Dosage Notes Depo- Medrol 40 mg/ml 10/09/2011 Dexamethasone 04/16/2012 Dexamethasone 08/26/2012 1 mL Medical (General) History Medical History History ICD Code hyperlipidemia Impaired fasting glucose Surgical History Surgery Date(Month/Year) appendectomy 02/22/12 Hospitalization History Reason Date(Month/Year) [facility] ER- kidney stones
[2025-06-20 19:22] LABS: Hematocrit 43.2 % (42.0-52.0); Hemoglobin 14.4 g/dL (14.1-18.0); Immature Granulocytes % 0.2 %; Mean Corpuscular HGB Conc 33.3 g/dL (31.8-35.4); Mean Corpuscular Hemoglobin 28.2 pg (27.0-31.2); Mean Corpuscular Volume 84.5 fl (80-94); Nucleated Red Blood Cells % 0 %; Platelet Count 248 K/mm3 (142-424); Red Blood Count 5.11 M/mm3 (4.60-6.20); Red Cell Distribution Width-SD 40.1 fL; White Blood Count 11.2 K/mm3 (4.8-10.8)
[2025-06-20] MEDS: ASPIRIN 81MG CHEWABLE TABLET 324 MG PO (19:29)
[2025-06-20 19:31] LABS: Alanine Aminotransferase 27 U/L (12-78); Albumin Level 4.3 g/dl (3.5-5.0); Albumin/Globulin Ratio 1.1 (1.1-1.8); Alkaline Phosphatase 81 U/L (38-126); Anion Gap 9.6 mEq/L (5-15); Aspartate Amino Transferase 28 U/L (17-59); Bilirubin,Total 0.9 mg/dl (0.2-1.3); Blood Urea Nitrogen 9 mg/dl (9-20); Calcium 9.0 mg/dl (8.4-10.2); Carbon Dioxide 27 mmol/L (22.0-30.0); Chloride 103 mmol/L (98-107); Creatinine Clearance Estimated 145 mL/min (50-200); Creatinine,Serum 1.00 mg/dl (0.66-1.25); Estimated Glomerular Filt Rate 79 ml/min (>60); GFR (African American) 96 ML/MIN (>60); Globulin 3.8 g/dL (1.3-3.2); Glucose 108 mg/dl (74-100); Potassium 3.6 mmoL/L (3.5-5.1); Sodium 136 mmol/L (136-145); Total Protein,Serum 8.1 g/dl (6.3-8.2)
[2025-06-20 19:36] LABS: Activated Partial Thrombo Time 30.5 seconds (22.8-30.6); INR 1.08 (0.9-1.1); Prothrombin Time 11.9 seconds (10.1-12.5)
[2025-06-20 19:43] LABS: NT Pro Brain Natriuretic Pep. < 20.0 pg/mL (0-125)
[2025-06-20 19:53] LABS: Troponin I < 0.01 ng/ml (0.00-0.034)
[2025-06-20] MEDS: 0.9 % SODIUM CHLORIDE 50 ML VIAL IV (19:57)
[2025-06-20] MEDS: SODIUM CHLORIDE 0.9% 10ML SYR (RAD ONLY) 10 ML IV (19:57)
[2025-06-20] MEDS: IOPAMIDOL-370 (76%);100ML BOTTLE 80 ML IV (19:57)
--- NOTE | 2025-06-20 20:38 | ECG_ITS ---
APPROVED REPORT Exam: Resting ECG HR:97 bpm ECG Measurements Heart Rate 97 AXES UT 180 P 71 QRSd 114 QRS -15 QT 326 T 34 QTc 381 Conclusion SINUS RHYTHM INDETERMINATE AXIS MODERATE INTRAVENTRICULAR CONDUCTION DELAY [110+ ms QRS DURATION] No STEMI Electronically signed by : COLE LATHAM, 06/27/2025 01:33:05
[2025-06-20 21:28] VITALS: BP 132/94; PULSE 95; RESP 20; TEMP 36.6; O2SAT 97
== END 2025-06-20 21:28 | disposition home or self-care (01) ==
PROVIDERS: Nurse Practitioner Family; Emergency Provider Emergency Medicine
DX: R07.89 Other chest pain (principal); J18.9 Pneumonia, unspecified organism; R91.8 Other nonspecific abnormal finding of lung field; Z86.711 Personal history of pulmonary embolism
CPT/HCPCS: 71275; 80053; 83880; 84484; 85025; 85610; 85730; 93005; 99285; Q9967